=== PATIENT | male | born 1955 | race Caucasian/White ===

== ENCOUNTER → 2016-12-03 | Outpatient (CLI) | payer BC ==
[2016-12-03 13:37] LABS: BASO % 0.3 %; BASO ABS # 0.02 K/uL (0-0.2); COMPLETE YES; EOS % 1.3 %; HEMATOCRIT 46.6 % (42-52); IG% 0.2 %; LYMPH % 27.3 %; LYMPH ABS # 1.73 K/uL (1.2-3.4); MEAN CELL VOLUME 96.9 fL (80-100); MEAN CORPUSCULAR HEMOGLOBIN 33.5 pg (25-34); MEAN CORPUSCULAR HGB CONC 34.5 g/dl (32-36); MEAN PLATELET VOLUME 9.1 fL (7.4-10.4); MONO % 10.6 %; NEUT % 60.3 %; PLATELET COUNT 246 K/uL (130-400); RED BLOOD COUNT 4.81 M/uL (4.7-6.1); WHITE BLOOD COUNT 6.33 K/uL (4.8-10.8)
[2016-12-03 14:18] LABS: ALT/SGPT 37 U/L (12-78); AST/SGOT 30 U/L (15-37); BLOOD UREA NITROGEN 14 mg/dl (7-18); BUN/CREATININE RATIO 16.7 (10-20); CARBON DIOXIDE 27 mmol/L (21-32); CHLORIDE 103 mmol/L (98-107); CHOLESTEROL 201 mg/dl (0-200); CREATININE 0.82 mg/dl (0.60-1.40); GLUCOSE 99 mg/dl (70-99); POTASSIUM 4.1 mmol/L (3.5-5.1); SODIUM 136 mmol/L (136-145)
[2016-12-03 14:29] LABS: ALB/GLOB RATIO 1.1 (0.9-2); ALKALINE PHOSPHATASE 62 U/L (45-117); CHOLESTEROL/HDL RATIO 1.9; HDL CHOLESTEROL 104 mg/dl; TRIGLYCERIDES 81 mg/dl (0-150); VERY LOW DENSITY LIPOPROT CALC 16 mg/dl
[2016-12-04 07:53] LABS: ESTIMATED AVERAGE GLUCOSE 114 mg/dl; HA1C FLAG Normal (Normal)
== END | disposition home or self-care (01) ==
LOC: C.LABSPEC 12:15
PROVIDERS: ATTEND Internal Medicine
DX: I10 Essential (primary) hypertension (principal); E78.5 Hyperlipidemia, unspecified; R73.9 Hyperglycemia, unspecified; R63.4 Abnormal weight loss

== ENCOUNTER → 2017-12-02 | Outpatient (CLI) | payer BC ==
[~2017-12-02] MED LIST: GABA-1693 PO; LISI-461 PO; MULT-845 PO; NYSS5 PO; THIA100T10 PO
== END | disposition home or self-care (01) ==
LOC: C.LABSPEC 12:52
PROVIDERS: ATTEND Internal Medicine
DX: R20.0 Anesthesia of skin (principal)

== ENCOUNTER 2023-07-16 18:35 | Inpatient (IN) ==
--- NOTE | 2023-07-16 19:12 | Emergency Department Note ---
History of Present Illness General Chief complaint: Fall Time Seen by Provider: 07/16/23 18:54 History of Present Illness Maximum Pain Intensity: 0 This is a 68-year-old male that presents to the emergency department via EMS with complaints of "fall". Patient also here today with his daughter and son-in-law. Patient as well as family provides the history. Patient notes that he drank a bottle of wine tonight and went to go to sleep. He then fell out of bed striking his head he believes on the nightstand. EMS summoned and brought here for further evaluation and management. Patient does note some discomfort to the skin where there are tears noted from the fall. Patient also notes there are several scabbed areas to his body that he has been picking at that has worsened over the past 2 weeks. Additional history obtained once the patient was more sober. He notes that over the past 3 days he has had increased balance issue and has been leading to the left. He also notes that he has been falling more as of recent. Patient notes that although he has history of falls this has seemed to worsen over the past 3 days. He denies any headache or neck pain. No chest pain or abdominal pain. No back pain. Tetanus vaccine up-to-date per review of the EMR last administered in 2018. Home Medications Medication Instructions Recorded Confirmed Type atorvastatin 40 mg tablet 40 mg PO QAM 07/16/23 07/16/23 History clobetasol 0.05 % scalp solution 1 applic topical DAILY PRN .. 07/16/23 07/17/23 History loratadine 10 mg tablet 10 mg PO DAILY 07/16/23 07/17/23 History mupirocin 2 % topical ointment 1 applic topical .2-3XS DAY PRN 07/16/23 07/16/23 History flare up naltrexone 50 mg tablet 50 mg PO QAM 07/16/23 07/16/23 History thiamine HCl (vitamin B1) 100 mg 100 mg PO DAILY 07/16/23 07/16/23 History tablet albuterol sulfate 90 mcg/actuation 2 puff inhalation Q4 PRN Shortness 07/17/23 07/17/23 History aerosol inhaler Of Breath Or Wheezing lisinopril 10 mg tablet 10 mg PO DAILY 07/17/23 07/17/23 History multivitamin 1 tab PO DAILY 07/17/23 07/17/23 History sertraline 25 mg tablet 25 mg PO QAM 07/17/23 07/17/23 History Allergies Allergy/AdvReac Type Severity Reaction Status Date / Time No Known Allergies Allergy Unverified 07/16/23 23:53 Past Med/Surg History Medical History Gait instability Idiopathic polyneuropathy Ataxia Hypertension Left leg weakness Numbness Surgical History No pertinent past surgical history Family History Family/Other No problems noted. Mother No problems noted. Father Stroke Social History Smoking Status: Former smoker Hx Alcohol Use: Yes Alcohol Intake Frequency: 4 or More x per/Week Preferred Language: Malian Feels Safe at Home: Yes Review of Systems A total of 10 systems reviewed and were otherwise negative Physical Exam Vital Signs Vital Signs - 24 hr 07/16/23 18:50 07/16/23 20:18 07/16/23 20:44 Temperature 36.5 C Temperature Source Oral Pulse Rate 68 64 Pulse Rate [Apical] 64 Respiratory Rate 18 18 Respiratory Effort / Characteristics Non-Labored Spontaneous Respiratory Depth Normal Respiratory Pattern Regular Blood Pressure 112/80 Blood Pressure [Right Arm] 124/81 Blood Pressure Mean 90 Blood Pressure Mean [Right Arm] 95 Blood Pressure Position Sitting Blood Pressure Position [Right Arm] Lying Pulse Oximetry 96 98 Oxygen Delivery Method Room Air Room Air Sepsis Recent Fever Within 48 Hours No Sepsis New/Unexplained Change in Mental Status No Sepsis Action Taken by Nursing No Action Required 07/16/23 21:34 07/16/23 21:34 07/16/23 22:09 Temperature Temperature Source Pulse Rate 76 Pulse Rate [Apical] 66 67 Respiratory Rate 18 18 18 Respiratory Effort / Characteristics Non-Labored Spontaneous Non-Labored Spontaneous Respiratory Depth Normal Normal Respiratory Pattern Regular Regular Blood Pressure Blood Pressure [Right Arm] 105/72 106/68 Blood Pressure Mean Blood Pressure Mean [Right Arm] 83 80 Blood Pressure Position Blood Pressure Position [Right Arm] Lying Lying Pulse Oximetry 96 96 96 Oxygen Delivery Method Room Air Room Air Room Air Sepsis Recent Fever Within 48 Hours Sepsis New/Unexplained Change in Mental Status Sepsis Action Taken by Nursing VITAL SIGNS - Vital signs and nursing notes were reviewed. Stable and afebrile. GENERAL -68-year-old male appearing his stated age who is in no acute distress. Communicates well with provider and answers questions appropriately. SKIN -there are several scabbed areas of various sizes and stages of healing throughout much of the body. Much of this is on the forehead, neck and face area but also in the extremities. There are acute superficial wounds are present to the left superior eyebrow region, left inferior ear/face region, left lateral neck area as well as the bilateral upper extremities. These will not require repair. No suturable wounds noted. Minimal bleeding noted at this time. HEAD -normocephalic. EYES - PERRL with EOMI bilaterally. Sclera anicteric. EARS - No deformities of external structures noted on gross examination bilaterally. No hemotympanum. NOSE - Midline and without cyanosis. No epistaxis or purulent drainage noted. MOUTH/OROPHARYNX - Without perioral cyanosis. NECK - Neck with FROM. Supple to palpation. No nuchal rigidity. LUNGS - CTA CARDIAC - RRR ABDOMEN -bowel sounds normoactive. Soft and nontender. EXTREMITIES - No clubbing or peripheral cyanosis. Skin tears of the extremities noted, one overlying the left medial hand, left lateral elbow, and right forearm region. Scabbed areas as above which appear chronic and not new today. No bony tenderness. Full range of motion noted. No deficits. NEUROLOGIC - Cranial nerves II through XII grossly intact. Sensory intact to light touch throughout. No deficits on examination. PSYCH - A&Ox3 and cooperates fully with examiner. Pt is very pleasant and interacts well with examiner. Course Administered Medications Multivitamins 10 ml/ Thiamine HCl 100 mg/ Folic Acid 1 mg/Sodium Chloride 1,011.2 mls @ 500 mls/hr IV .Q2H2M ONE Stop: 07/17/23 00:29 Last Admin: 07/16/23 22:51 Dose: 500 mls/hr Documented By: [facility] Medical Decision Making Laboratory Data 07/16/23 20:40 07/16/23 20:40 Lab Results 07/16/23 Range/Units 20:40 WBC 6.80 (4.8-10.8) K/ul RBC 4.43 L (4.70-6.10) M/uL Hgb 14.9 (14.0-18.0) g/dl Hct 43.5 (42.0-52.0) % MCV 98.2 (80.0-100.0) fL MCH 33.6 (25.0-34.0) pg MCHC 34.3 (32.0-36.0) g/dL RDW Std Deviation 43.8 (36.4-46.3) fL RDW Coeff of Miguel 12.0 (11.5-14.5) % Plt Count 292 (130-400) K/uL MPV 8.5 L (9.4-12.4) fL Immature Gran % (Auto) 0.6 % Neut % (Auto) 71.6 % Lymph % (Auto) 15.6 % Broome % (Auto) 6.3 % Eos % (Auto) 5.0 % Baso % (Auto) 0.9 % Neut # (Auto) 4.87 (1.40-6.50) K/uL Lymph # (Auto) 1.06 L (1.20-3.40) K/uL Broome # (Auto) 0.43 (0.11-0.59) K/uL Eos # (Auto) 0.34 (0.00-0.50) K/uL Baso # (Auto) 0.06 (0.00-0.20) K/uL Immature Gran # (Auto) 0.04 (0.01-0.20) K/uL PT 9.7 (9.0-12.0) Seconds INR 0.9 (0.9-1.1) APTT 27 (21-31) Seconds PTT Ratio 1.0 Sodium 132 L (136-145) mmol/L Potassium 4.0 (3.5-5.1) mmol/L Chloride 98 (98-107) mmol/L Carbon Dioxide 25 (21-32) mmol/L Anion Gap 9 (3-11) BUN 8 (6-23) mg/dl Creatinine 0.50 L (0.6-1.4) mg/dl Est Cr Clr Drug Dosing Not Reportable Est GFR ( Amer) 130.0 ml/min Est GFR (Non-Af Amer) 112.1 ml/min BUN/Creatinine Ratio 16.0 (10-20) Glucose 100 H (70-99(Fasting)) mg/dl Calcium 8.7 (8.6-10.3) mg/dl Phosphorus 3.4 (2.5-4.9) mg/dl Magnesium 1.8 (1.7-2.4) mg/dl Total Bilirubin 0.6 (0.2-1.0) mg/dl AST 25 (13-39) U/L ALT 12 (7-52) U/L Alkaline Phosphatase 83 (34-104) U/L Total Protein 7.4 (6.0-8.3) gm/dl Albumin 4.1 (3.4-5.0) gm/dl Globulin 3.3 (2.5-4.0) gm/dl Albumin/Globulin Ratio 1.2 (0.9-2) Ethyl Alcohol mg/dL 177.5 H (<10.0) mg/dl Imaging Data My Impression: Chest xray: Per my interpretation the: Patient is rotated. No acute process. Radiologist's Impression: Cervical Spine CT 07/16/23 19:10 Exam(s): CT C SPINE EXAM: CT Cervical Spine Without Intravenous Contrast CLINICAL HISTORY: Reason for exam: fall, struck head/neck. TECHNIQUE: Axial computed tomography images of the cervical spine without intravenous contrast. CTDI is 24.17 mGy and DLP is 547.09 mGy-cm. Automated exposure control was utilized for the study. A dose lowering technique was utilized adhering to the principles of ALARA. COMPARISON: No relevant prior studies available. FINDINGS: The vertebral body heights are maintained. The craniocervical junction is intact. The atlanto-dens interval is maintained. The dens is intact. There is no spondylolisthesis. Multilevel cervical spondylosis and degenerative disc disease. Straightening of the cervical lordosis. The unenhanced neck soft tissues are grossly unremarkable. The visualized lung apices are grossly clear. IMPRESSION: No acute fracture or subluxation of the cervical spine. Electronically signed by: Bernard Nice MD 07/16/23 20:[address] 07/16/23 19:10 Exam(s): CT HEAD Without Contrast EXAM: CT Head Without Intravenous Contrast CLINICAL HISTORY: Reason for exam: fall, struck head/neck. TECHNIQUE: Axial computed tomography images of the head/brain without intravenous contrast. CTDI is 37.01 mGy and DLP is 624.41 mGy-cm. Automated exposure control was utilized for the study. A dose lowering technique was utilized adhering to the principles of ALARA. COMPARISON: Head CT May 05, 2022. FINDINGS: No acute intracranial hemorrhage. No midline shift. Low attenuation in the LEFT cerebellum, concerning for old infarct. This area measures approximately 4.4 x 2.6 cm each. If there is no history of old infarct, recommend MRI to reevaluate and exclude a possible mass. Age-related cerebral volume loss. Periventricular and subcortical white matter hypoattenuation, consistent with chronic microangiopathy. The visualized orbits appear grossly unremarkable. The calvarium is intact. The visualized paranasal sinuses and mastoid air cells are grossly clear. IMPRESSION: Low attenuation in the LEFT cerebellum, concerning for old infarct. This area measures approximately 4.4 x 2.6 cm each. If there is no history of old infarct, recommend MRI to reevaluate and exclude a possible mass. No acute intracranial hemorrhage. Electronically signed by: Bernard Nice MD 07/16/23 20:24 PM MDM Narrative Patient was seen and evaluated as above in room D09. Review was performed of triage nursing notes and vital signs. I did review pertinent previous visits and patient history. After obtaining a thorough history and physical examination the above work up was performed. Patient presents to us today status post fall from bed. He is intoxicated on examination and does report drinking a bottle of wine today. His daughter is at bedside as well as son-in-law. He does have skin tears. It appears he struck the left side of the head when he fell. Options of care were discussed with the patient. IV access was established. Labs were drawn. There is no leukocytosis or concerning anemia. Mild hyponatremia 132. Glucose 100. Alcohol 177. Will note that the alcohol level was drawn nearly 2 hours after presentation therefore presenting alcohol level was likely higher. Furthermore CT imaging was obtained of the head and neck on presentation as well. CT scan of the neck was negative for acute fracture or subluxation. However, the CT scan of the head does reveal a "low-attenuation in the left cerebellum, concerning for old infarct. This area measures approximately 4.4 x 2.6 cm each. If there is no history of old infarct, recommend MRI to reevaluate and exclude a possible mass". This reportedly was compared to the head CT from May 05, 2022. Patient was reevaluated and as he was becoming clinically sober further history was able to be obtained. I asked him if he had any dizziness over the past few days or balance issues. He noted over the past 3 days worsening dizziness and worsening balance issues and feels like he is falling to the left. He does not have any acute deficit on my examination. I do believe that further evaluation and management is warranted in the inpatient setting. Case discussed with the hospitalist service. Please refer to further documentation regarding his stay. Patient amenable to this plan. Chest x-ray was also obtained per my interpretation was negative for acute process and the patient is rotated. Formal radiology report will be available in the a.m. He has no respiratory complaints at this time. EKG reveals normal sinus rhythm at a rate of 61 bpm. QTc 442. QRS 76. There is no ST elevation. Consent was obtained and I did cleanse the patient's skin tears with sterile saline and dilute iodine. These were dried with sterile gauze. Bacitracin dressings were applied. I did order the patient multivitamin/thiamine/folic acid with fluids. He does appear clinically dehydrated. The patient's daughter did leave her cell phone number and asked us to contact her regarding today's findings and plan of care. I did obtain consent from the patient and he asked that I also in addition to speaking with his daughter also speak with his at home. I was able to speak to his daughter as well as his Haile via phone. All questions were answered and they were updated on plan of care. GCS: 15 In the evaluation and treatment of this patient the following differential diagnoses were entertained: Acute intracranial hemorrhage, skull fracture, intoxication, electrolyte disturbance, mass, stroke, among others. Impression & Plan Abnormal CT of the head, Balance problem, Multiple skin tears, Frequent falls, Alcohol use, Hyponatremia Discharge Plan Visit Data Chief Complaint: Fall ED Provider: Marquita Ag ED Midlevel Provider: Armond [place] Discharge Problem: Abnormal CT of the head, Balance problem, Multiple skin tears, Frequent falls, Alcohol use, Hyponatremia Patient Disposition: Admitted As Inpatient Condition: Good
--- NOTE | 2023-07-16 20:25 | CT Scan Report ---
Exam(s): CT HEAD Without Contrast EXAM: CT Head Without Intravenous Contrast CLINICAL HISTORY: Reason for exam: fall, struck head/neck. TECHNIQUE: Axial computed tomography images of the head/brain without intravenous contrast. CTDI is 37.01 mGy and DLP is 624.41 mGy-cm. Automated exposure control was utilized for the study. A dose lowering technique was utilized adhering to the principles of ALARA. COMPARISON: Head CT May 05, 2022. FINDINGS: No acute intracranial hemorrhage. No midline shift. Low attenuation in the LEFT cerebellum, concerning for old infarct. This area measures approximately 4.4 x 2.6 cm each. If there is no history of old infarct, recommend MRI to reevaluate and exclude a possible mass. Age-related cerebral volume loss. Periventricular and subcortical white matter hypoattenuation, consistent with chronic microangiopathy. The visualized orbits appear grossly unremarkable. The calvarium is intact. The visualized paranasal sinuses and mastoid air cells are grossly clear. IMPRESSION: Low attenuation in the LEFT cerebellum, concerning for old infarct. This area measures approximately 4.4 x 2.6 cm each. If there is no history of old infarct, recommend MRI to reevaluate and exclude a possible mass. No acute intracranial hemorrhage. Electronically signed by: Bernard Nice MD 07/16/23 20:24 PM
--- NOTE | 2023-07-16 20:26 | CT Scan Report ---
Exam(s): CT C SPINE EXAM: CT Cervical Spine Without Intravenous Contrast CLINICAL HISTORY: Reason for exam: fall, struck head/neck. TECHNIQUE: Axial computed tomography images of the cervical spine without intravenous contrast. CTDI is 24.17 mGy and DLP is 547.09 mGy-cm. Automated exposure control was utilized for the study. A dose lowering technique was utilized adhering to the principles of ALARA. COMPARISON: No relevant prior studies available. FINDINGS: The vertebral body heights are maintained. The craniocervical junction is intact. The atlanto-dens interval is maintained. The dens is intact. There is no spondylolisthesis. Multilevel cervical spondylosis and degenerative disc disease. Straightening of the cervical lordosis. The unenhanced neck soft tissues are grossly unremarkable. The visualized lung apices are grossly clear. IMPRESSION: No acute fracture or subluxation of the cervical spine. Electronically signed by: Bernard Nice MD 07/16/23 20:25 PM
[2023-07-16 21:27] LABS: Basophils # (auto) 0.06 K/uL (0.00-0.20); Basophils % (auto) 0.9 %; Eosinophils # (auto) 0.34 K/uL (0.00-0.50); Hematocrit (blood only) 43.5 % (42.0-52.0); Hemoglobin 14.9 g/dl (14.0-18.0); Immature Granulocytes # (auto) 0.04 K/uL (0.01-0.20); Immature Granulocytes % (auto) 0.6 %; Lymphocytes # (auto) 1.06 K/uL (1.20-3.40); Lymphocytes % (auto) 15.6 %; Mean Corpuscular Hemoglobin 33.6 pg (25.0-34.0); Mean Corpuscular Hgb Conc 34.3 g/dL (32.0-36.0); Mean Corpuscular Volume 98.2 fL (80.0-100.0); Mean Platelet Volume 8.5 fL (9.4-12.4); Monocytes # (auto) 0.43 K/uL (0.11-0.59); Monocytes % (auto) 6.3 %; Neutrophils # (auto) 4.87 K/uL (1.40-6.50); Neutrophils % (auto) 71.6 %; Platelet Count 292 K/uL (130-400); RDW Standard Deviation 43.8 fL (36.4-46.3); Red Blood Count 4.43 M/uL (4.70-6.10)
[2023-07-16 21:28] LABS: Alanine Aminotransferase 12 U/L (7-52); Albumin Globulin Ratio 1.2 (0.9-2); Albumin Level 4.1 gm/dl (3.4-5.0); Alkaline Phosphatase 83 U/L (34-104); Anion Gap 9 (3-11); Aspartate Aminotransferase 25 U/L (13-39); Bilirubin,Total 0.6 mg/dl (0.2-1.0); Blood Urea Nitrogen 8 mg/dl (6-23); Calcium 8.7 mg/dl (8.6-10.3); Carbon Dioxide 25 mmol/L (21-32); Chloride 98 mmol/L (98-107); Est GFR (Non-African American) 112.1 ml/min; Globulin 3.3 gm/dl (2.5-4.0); Glucose 100 mg/dl (70-99(Fasting)); Sodium 132 mmol/L (136-145); Total Protein 7.4 gm/dl (6.0-8.3)
[2023-07-16 21:41] LABS: INR 0.9 (0.9-1.1); Partial Thromboplastin Time 27 Seconds (21-31); Prothrombin Time 9.7 Seconds (9.0-12.0)
[2023-07-16 22:50] LABS: Magnesium 1.8 mg/dl (1.7-2.4); Phosphorus 3.4 mg/dl (2.5-4.9)
[2023-07-16] MEDS: MULTI-VITAMIN INFUSION 10 ML, THIAMINE HCL 100 MG, FOLIC ACID 1 MG in SODIUM CHLORIDE 0... IV ONE (22:51)
--- NOTE | 2023-07-16 23:28 | History & Physical Report ---
Date of Service July 16, 2023 Assessment & Plan (1) Idiopathic polyneuropathy: (2) Alcohol use disorder: (3) Ataxia: (4) Hypertension: (5) Gait instability: Plan 68-year-old patient with past medical history of idiopathic polyneuropathy in left lower extremity, hypertension, and alcohol abuse disorder that was admitted to the hospital after experiencing a fall without loss of consciousness resulting from dizziness upon standing from his bed. Alcohol use disorder -Patient with long history of excessive alcohol consumption which he states is not excessive, but after discussion with patient's , comes to like the patient has been consuming alcoholic beverages since he wakes up until he goes to sleep (patient is "never sober ") -Patient experiencing mood symptoms at home, as per his (depressed, quiet) -No known history of any alcohol withdrawal symptoms, but patient has been experiencing excessive "pruritus "for which she has been scratching to the point of producing skin lesions -Alcohol withdrawal protocol ordered -Thiamine 200 mg daily and folate daily ordered -Folate and B12 levels ordered -IVF with LR at 100 cc/hr -Patient admitted to PCU/telemetry Gait imbalance // Fall -Patient with long history of gait imbalance likely related to left lower extremity neuropathy for which he uses a walker for ambulation at baseline -Patient concerned with making turns due to fear of falling but able to walk in a straight line without difficulty -Patient with known history of alcohol use disorder that also impairs his gait due to ataxia and increases his risk for falls -Patient not experiencing any pain at the time of evaluation -C-spine CT and head CT without any fractures -Head CT did show low-attenuation in the left cerebellum concerning for an old infarct. Patient does not recall being managed for any strokes in the past. Consider further evaluation with an MRI to r/o possible mass or any other acute process -PT and OT consulted Hypertension -Continue home lisinopril 10 mg daily -Consider holding if patient's blood pressures soft Dispo: PCU/telemetry Fluids: LR @ 100 cc/hr Diet: HH VTE ppx: SCDs a.m. labs: CBC, CMP, magnesium History of Present Illness Chief Complaint: Fall Primary Care Provider: Magan Garcia MD Patient is a 68-year-old male with past medical history remarkable for alcohol abuse disorder, gait imbalance with use of walker at baseline, idiopathic polyneuropathy, and hypertension who arrived to the emergency department due to a fall. Patient was lying in his bed and when attempting to get out of bed patient felt dizzy and fell and hit his head on the bedside table, but denies any loss of consciousness. Patient's then called an ambulance to take patient to the hospital. Patient has gait imbalance at baseline he uses a walker to ambulate around his home, but notes worsening imbalance in the last 3 days. Of note patient was last seen in the hospital in 2018 due to concerns of left distal leg weakness associated with numbness of the left foot. At the time head and spine MRI were performed to see if there was any compression or any other cause for his left lower extremity numbness/weakness, but ultimately these did not show any findings that would be consistent with this clinical manifestation.patient was then seen by orthopedics at this time and they felt that his left leg symptoms were likely related to transient peripheral neuropath y (peroneal nerve injury) and at the time of discharge his left leg symptoms were essentially resolved. Patient was discharged with gabapentin 3 times a day and advised to have close follow-up with his PCP. Today patient refers that he is still having left leg weakness/numbness which causes his gait and balance. He states that he is able to walk without difficulty when walking forward and using his walker, but feels concerns when he has to turn around due to fear of falling. He denies increased consumption of alcoholic beverages in these last 3 days and states that he has consumed about the same amount that he has in the past. However, after calling patient's (Haile), he states that the patient has been consuming alcoholic beverages since he wakes up in the morning until he goes to sleep at night. He also states that the patient has seemed more depressed and quiet than usual, and makes note that the patient is " never sober". On evaluation at bedside, patient was noted to have multiple scabs on his face, his back, and his upper extremities. No scabbing lesions noted in patient's abdomen or bilateral lower extremities. On questioning, patient states that he got the scabs from excessive scratching because of persistent pruritus in those areas that are not limited to any particular time of day. His has not had similar symptoms of pruritus/excessive scratching. Patient cannot recall any recent changes that could have caused his excessive scratching. Patient is awake alert and oriented in all spheres, afebrile, and in no acute distress. He denies having any chest pain, shortness of breath, fevers, chills, nausea, vomiting, diarrhea, headaches, malaise, or any other symptoms. ED Course: Patient was treated with banana bag, scabs and wounds were cleaned and dressed Labs/Imaging: CBC without leukocytosis, hemoglobin stable at 14.9, platelets stable at 292, coagulation studies with INR of 0.9, CMP showing hyponatremia with sodium level of 132, no other electrolyte abnormalities, renal markers within reference range, glucose of 100, magnesium level of 1.8, phosphorus of 3.4, LFTs normal C-spine CT without acute fractures or subluxation, head CT without any intracranial hemorrhage but showing low-attenuation of the left cerebellum that are concerning for an old infarct (area measures approximately 4.4 x 2.6 cm). Patient states that he has no history of any strokes. Allergies Allergy/AdvReac Type Severity Reaction Status Date / Time No Known Allergies Allergy Unverified 07/16/23 23:53 Home Medications Medication Instructions Recorded Confirmed Type atorvastatin 40 mg tablet 40 mg PO QAM 07/16/23 07/16/23 History clobetasol 0.05 % scalp solution 1 applic topical DAILY PRN .. 07/16/23 07/17/23 History loratadine 10 mg tablet 10 mg PO DAILY 07/16/23 07/17/23 History mupirocin 2 % topical ointment 1 applic topical .2-3XS DAY PRN 07/16/23 07/16/23 History flare up naltrexone 50 mg tablet 50 mg PO QAM 07/16/23 07/16/23 History thiamine HCl (vitamin B1) 100 mg 100 mg PO DAILY 07/16/23 07/16/23 History tablet albuterol sulfate 90 mcg/actuation 2 puff inhalation Q4 PRN Shortness 07/17/23 07/17/23 History aerosol inhaler Of Breath Or Wheezing lisinopril 10 mg tablet 10 mg PO DAILY 07/17/23 07/17/23 History multivitamin 1 tab PO DAILY 07/17/23 07/17/23 History sertraline 25 mg tablet 25 mg PO QAM 07/17/23 07/17/23 History Past Med/Surg History Medical History Gait instability Idiopathic polyneuropathy Ataxia Hypertension Left leg weakness Numbness Surgical History No pertinent past surgical history Family History Family/Other No problems noted. Mother No problems noted. Father Stroke Social History Smoking Status: Current every day smoker Tobacco Type: Cigarettes Hx Alcohol Use: Yes Alcohol type: wine Alcohol Intake Frequency: 4 or More x per/Week Hx Substance Use: No Preferred Language: Cameroonian Communication Ability: Effective Pharmacy Informaticist Required: No Beliefs That Will Affect Care: None Current Living Situation: Spouse Feels Safe at Home: Yes Assistive Devices: Cane and Walker Review of Systems Review of Systems: As per HPI Physical Exam Physical Exam: GENERAL: Alert awake and oriented in all spheres, afebrile, no acute distress HEAD: Normocephalic, lesions noted more pronounced on patient's left side of the face some of which are scabbed over and 1 this seems to be recent and likely related to recent fall and patient's left brow region, lesions without active bleeding EYES: EOM intact, PERRL THROAT: Normal to visual exam CHEST: Symmetric chest expansions with respirations CARDIO: Regular rate and rhythm, no rubs murmurs or gallops PULMONARY: Clear to auscultation bilaterally, normal respiratory effort, no respiratory distress GI: Soft, nondistended, nontender : No Parker EXTREMITIES: No lower extremity swelling or calf tenderness bilaterally SKIN: Scabbed skin lesions noted in patient's face, back, and bilateral arms, no skin lesions or hematomas noted patient's abdomen and bilateral lower extremities NEURO: No aphasia, symmetrical operations supervisor strength, symmetrical eyebrow rise, symmetrical smile, able to lift both lower extremities Results & Data Results & Data Vital Signs (Past 12 Hours) Vital Signs Temp Pulse Pulse Resp BP BP Pulse Ox 07/16/23 22:09 67 18 106/68 96 07/16/23 21:34 76 18 96 07/16/23 21:34 66 18 105/72 96 07/16/23 20:44 64 18 124/81 98 07/16/23 20:18 64 07/16/23 18:50 36.5 C 68 18 112/80 96 O2 Del Method 07/16/23 22:09 Room Air 07/16/23 21:34 Room Air 07/16/23 21:34 Room Air 07/16/23 20:44 Room Air 07/16/23 20:18 07/16/23 18:50 Room Air Supervising Physician Co-Signing Physician Notes Attending addendum: I have physically seen this patient, have supervised the medical residents activities, and agree with the H&P unless as otherwise noted. Assessment and Plan: Alcohol use disorder/alcohol intoxication- Per patient's , he has been intaking alcohol significantly more as of late Presenting symptoms may be associated with his alcohol abuse AWSS protocol with IV Ativan LR at 100 mL/h after finishing banana bag Checking folate and B12 levels Thiamine 200 mg daily and folate 1 mg daily Admit to PCU for rhythm monitoring Ambulatory dysfunction/gait and balance/fall- History of idiopathic polyneuropathy/ataxia and gait instability Alcohol abstinence is important Imaging of CT of head and CT C-spine are both negative MRI brain without contrast Consult PT/OT May need inpatient rehab Hypertension- Lisinopril with hold parameters Remaining orders and notations as noted
[2023-07-16] MEDS ORDERED: LORazepam 1 MG in SYRINGE 0.5 ML IV PRN (23:47)
[2023-07-17] MEDS ORDERED: ACETAMINOPHEN 325 MG TAB PO PRN (00:33)
[2023-07-17 01:20] LABS: Folate (Folic Acid),Ser orPlas > 22.30 ng/ml (>5.38)
[2023-07-17 01:21] LABS: Vitamin B12 309 pg/ml (180-914)
[2023-07-17] MEDS: LACTATED RINGER'S 1,000 ML IV SCH (02:16)
[2023-07-17 04:06] LABS: Basophils # (auto) 0.09 K/uL (0.00-0.20); Basophils % (auto) 1.6 %; Eosinophils # (auto) 0.55 K/uL (0.00-0.50); Eosinophils % (auto) 9.5 %; Hematocrit (blood only) 38.4 % (42.0-52.0); Hemoglobin 13.1 g/dl (14.0-18.0); Immature Granulocytes # (auto) 0.03 K/uL (0.01-0.20); Immature Granulocytes % (auto) 0.5 %; Lymphocytes # (auto) 1.02 K/uL (1.20-3.40); Lymphocytes % (auto) 17.7 %; Mean Corpuscular Hemoglobin 33.1 pg (25.0-34.0); Mean Corpuscular Hgb Conc 34.1 g/dL (32.0-36.0); Mean Platelet Volume 8.4 fL (9.4-12.4); Monocytes % (auto) 10.4 %; Neutrophils # (auto) 3.47 K/uL (1.40-6.50); Neutrophils % (auto) 60.3 %; Platelet Count 263 K/uL (130-400); RDW Coefficient of Variation 11.9 % (11.5-14.5); Red Blood Count 3.96 M/uL (4.70-6.10); White Blood Count 5.76 K/ul (4.8-10.8)
[2023-07-17 04:14] LABS: Alanine Aminotransferase 8 U/L (7-52); Albumin Globulin Ratio 1.4 (0.9-2); Albumin Level 3.5 gm/dl (3.4-5.0); Alkaline Phosphatase 68 U/L (34-104); Anion Gap 8 (3-11); Aspartate Aminotransferase 20 U/L (13-39); BUN Creatinine Ratio 19.6 (10-20); Bilirubin,Total 0.5 mg/dl (0.2-1.0); Blood Urea Nitrogen 10 mg/dl (6-23); Calcium 8.2 mg/dl (8.6-10.3); Carbon Dioxide 22 mmol/L (21-32); Chloride 103 mmol/L (98-107); Est GFR (African American) 128.9 ml/min; Est GFR (Non-African American) 111.2 ml/min; Globulin 2.5 gm/dl (2.5-4.0); Glucose 97 mg/dl (70-99(Fasting)); Magnesium 1.7 mg/dl (1.7-2.4); Potassium 3.7 mmol/L (3.5-5.1); Sodium 133 mmol/L (136-145)
--- NOTE | 2023-07-17 07:06 | XRay Report ---
XR chest 1V portable CLINICAL HISTORY: fall from bed TECHNIQUE: Single frontal radiograph of the chest was obtained. Comparison: Comparison is made to chest radiograph 05/05/2022 FINDINGS: No lines and tubes are seen. Cardiac silhouette is unremarkable, there is prominence of the right med iastinum which may represent pulmonary vasculature, less likely underlying mass. Opacity in the media l right lung base with rightward mediastinal shift may represent right lower lobe are collapse. No ev idence of pleural effusion or pneumothorax. IMPRESSION: Likely right lower lobar collapse. CT chest is recommended to exclude obstructing mass. ACT 112: Positive. There are findings on this exam that require communication between the performing entity and the patient following Patient Test Result Information Act ([place] Act 112) guidelines. Electronically signed by: Wai Giang M.D. 07/17/2023 7:05 AM
--- NOTE | 2023-07-17 07:43 | Hospitalist Progress Note ---
Date of Service July 17, 2023 Assessment & Plan (1) Ataxia: Plan: 68 y/o presented with falls, unsteady gait, ataxia -Patient with long history of gait imbalance likely related to left lower extremity neuropathy for which he uses a walker for ambulation at baseline -C-spine CT and head CT without any fractures Abnormal head CT -reviewed head CT from 04/2022 - only "punctate lacunar infarct" noted in L cerebellum -admission head CT with likely interval/old L cerebellar infarct but will obtain brain MRI to evaluate for mass, especially given RLL abnormality on CXR -brain MRI confirms L cerebellar mass - primary brain lesion vs metastasis - cystic appearing lesion not typical for met -discuss with neurology/neurosurgery -see below re: chest CT (2) Alcohol use disorder: Plan: -Patient with long history of excessive alcohol consumption which he states is not excessive, but after discussion with patient's , comes to like the patient has been consuming alcoholic beverages since he wakes up until he goes to sleep (patient is "never sober ") -Patient experiencing mood symptoms at home, as per his (depressed, quiet) -No known history of any alcohol withdrawal symptoms, but patient has been experiencing excessive "pruritus "for which he has been scratching to the point of producing skin lesions -Alcohol withdrawal protocol ordered -Thiamine 200 mg daily and folate daily ordered -Folate and B12 levels ordered (3) Idiopathic polyneuropathy: Plan: LLE longstanding (4) Hypertension: Plan: Hypertension -Continue home lisinopril 10 mg daily -Consider holding if patient's blood pressures soft Plan R medial lung base opacity possible RLL collapse on CXR, R mediastinal prominence -chest CT ordered - RLL collapsed, suggestive of bronchial obstruction. Reviewed CT images. Also has SC LN on exam. -with finding of cerebellar brain mass, smoking history, weight loss the big picture is concerning for metastatic cancer -consulted pulmonary - discussed with Dr. Antonio, bronchoscopy planned for tomorrow B12 309 - started oral supplement Folate normal Thiamine po supplement Mild hyponatremia Na improved from 132 to 133 with IV fluids Cerebrovascular disease - reviewed previous imaging - had CTA head/neck 04/2022 noted to have 80% focal stenosis of distal L common carotid and 40% prox LICA -cardiac calcifications on CT -is on lisinopril and atorvastatin Severe protein calorie malnutrition. Anorexia and 20 pound weight loss this year. Cachectic appearing with significant extremity muscle wasting, sarcopenia -consult nutrition Diffuse ecchymoses - coags - reviewed, normal, platelets normal Admission and Anticipated Discharge Date Admission Date: July 16, 2023 Subjective no chest pain or dyspnea, continues smoking has been itchy and scratching "rash" on head/post neck few weeks lots of bruises he says from falls LLE neuropathy numbness he feels getting better over time Physical Exam 2 Physical Exam: PHYSICAL EXAMINATION Last 24h vital signs reviewed, see documentation in flowsheet General: comfortable appearing, no distress, chronically ill appearing HEENT: Normocephalic, atraumatic, pupils round and equal, sclerae anicteric, no conjunctival injection, moist mucus membranes Lungs: Normal respiratory effort. Clear to auscultation bilaterally except absent R base. No RRW Heart: Regular rate and rhythm, no murmurs. No JVD Abdomen: Soft, nontender, nondistended. Bowel sounds present. Extremities: Warm, dry, well-perfused. No extremity edema. Sarcopenia - MM wasting arms/legs and bitemporal wasting Skin: numerous scattered old ecchymoses and skin tears, peanut picker lesions all over head/neck arms with scabs Neuro: Alert and oriented x 4, face symmetric, moves 4 extremities well, not tremulus Psych: Normal affect and behavior Results & Data Results & Data Vital Signs (Past 12 Hours) Vital Signs Temp Pulse Pulse Resp BP Pulse Ox O2 Del Method 07/17/23 06:34 36.4 C L 66 18 128/67 94 Room Air 07/17/23 03:31 61 07/17/23 02:19 87 18 95/60 L 95 Room Air 07/16/23 22:09 67 18 106/68 96 Room Air 07/16/23 21:34 76 18 96 Room Air 07/16/23 21:34 66 18 105/72 96 Room Air 07/16/23 20:44 64 18 124/81 98 Room Air 07/16/23 20:18 64 Laboratory Results 07/17/23 03:41 07/17/23 03:41 PG Care Time/CCT Total # of Minutes Spent Total Time Spent with Patient: Total time spent is greater than 50% in coordination of care (as documented) at patient's floor/unit and/or counseling patient: Coding Level of Care Code 24232 SUB INP/OBS CARE 3/50MIN Diagnoses Ataxia R27.0 Alcohol use disorder F19.90 Idiopathic polyneuropathy G60.9 Hypertension I10
[2023-07-17] MEDS: GADOBUTROL 65ML VIAL IV ONE (09:00)
[2023-07-17] MEDS: OPTIRAY 320 100ml IV ONE (09:18)
--- NOTE | 2023-07-17 10:12 | Magnetic Resonance Report ---
MR brain wo/w con CLINICAL HISTORY: L cerebellar abnormality, ataxia TECHNIQUE: Multiplanar and multisequence MR images of the brain were obtained prior to and following administration of gadolinium contrast. Comparison: Comparison is made to CT head 07/16/2023, CT head 05/05/2022, MRI brain 11/29/2017 FINDINGS: No abnormal restricted diffusion is identified. The white matter is unremarkable. Ex vacuo ventriculo megaly and sulcal enlargement is noted compatible with diffuse volume loss. There is a left cerebella r mass measuring 34 x 28 x 26 mm with rim enhancement. It is T2 hyperintense and T1 hypointense and m ay contain a mural nodule in the superior anterior surface. There is mild mass effect with partial ef facement of the fourth ventricle. There is no evidence of acute intraparenchymal hemorrhage. No extra axial fluid collections are seen. The corpus callosum, pituitary gland, and cerebellar tonsils appea r grossly unremarkable. Flow voids of the major intracranial arterial vessels are identified. The imaged portions of the para nasal sinuses, mastoid air cells, and orbits are unremarkable. IMPRESSION: Enhancing multiloculated cystic type lesion with minimal surrounding vasogenic edema. 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 T his is similar to appearance on prior CT however is new from MRI of [address] head of 2021. ACT 112: Positive. There are findings on this exam that require communication between the performing entity and the patient following Patient Test Result Information Act ([place] Act 112) guidelines. Electronically signed by: Wai Giang M.D. 07/17/2023 10:11 AM
--- NOTE | 2023-07-17 11:20 | CT Scan Report ---
CHEST CT WITH CONTRAST CT DOSE: 468.48 mGy.cm HISTORY: Collapse of the right lower lobe RLL collapse, possible mass TECHNIQUE: Multiaxial CT images of the chest were performed following the IV administration of 94 cc of Optiray. A dose lowering technique was utilized adhering to the principles of ALARA. COMPARISON: Chest radiograph 07/16/2023, thoracic spine MRI 11/30/2017, CT chest 05/10/2012 FINDINGS: Unremarkable thyroid. Borderline enlarged subcarinal and right hilar lymph nodes measure up to 10 mm. Heart is normal in size without pericardial effusion. Extensive coronary artery calcificat ions. Atherosclerosis of the thoracic aorta. Ectasia of the ascending portion measures up to 3.9 cm. Patency of the imaged great vessels. No pulmonary emboli identified. Tracheobronchial secretions are noted. There is abrupt cut off/opacification of the right lower lobe bronchus with complete collapse of the right lower lobe demonstrating heterogeneous attenuation. Subc entimeter calcifications are noted adjacent to the right lower lobe bronchus. Moderate pulmonary emph ysema is biapical pleural-parenchymal scarring. Bronchial wall thickening with multifocal mucus plugg ing. Mild subpleural nodular densities of the right lung apex are similar prior likely represents sca rring. No acute upper abdominal abnormality. Contrast noted within the renal collecting systems. There is mi d to distal esophageal wall thickening suggestive of esophagitis with small hiatal hernia. L1 yolette cecy deformity with 5 mm retropulsion is new from 2018 and likely chronic. Degenerative changes of th e shoulders and spine. IMPRESSION: 1. There is abrupt cut off/opacification of the right lower lobe bronchus with complete collapse of t he right lower lobe demonstrating heterogeneous attenuation. Follow-up with pulmonology consultation and bronchoscopy is needed in order to exclude an obstructing endobronchial mass. 2. Borderline enlarged subcarinal and right hilar lymph nodes. 3. Emphysema with bronchitis and tracheobronchial secretions. 4. Biapical pleural parenchymal scarring redemonstrated. 5. Moderate L1 compression deformity with 5 mm retropulsion is new from 2018, likely chronic. ACT 112: Positive. There are findings on this exam that require communication between the performing entity and the patient following Patient Test Result Information Act ([place] Act 112) guidelines. Electronically signed by: Tommy Gallegos M.D. 07/17/2023 11:19 AM
[2023-07-17] MEDS: FOLIC ACID 1 MG TAB PO SCH (11:22)
[2023-07-17] MEDS: lisinopril 10 MG TAB PO SCH (11:22)
[2023-07-17] MEDS: THIAMINE HCL 100 MG TAB PO SCH (11:23)
--- OUTSIDE RECORDS SUMMARY | 2023-07-17 12:00 | External Medical Summary ---
Author Name Unknown Address Unknown Organization R1WR:[facility] [address] [place] [address] Laboratory Report Ordering Provider Test Date Status NIDARACHEL BERNAL 06/13/2023 16:36:00 Final Observation Date Value Abnormality Reference (Units ) Status Alcohol, Medical 06/13/2023 17:03 211 Above upper panic limits <10 (mg/dL) Final [id number] CALLED CRITICAL RE SULTS AT [id number]. THE RESULTS WERE READ BACK AND VERIFIED BY: NOE BLOOD. CREAM DUMPER depression: >100 mg/dL Performing Location [facility] [address] [place] [address]
--- OUTSIDE RECORDS SUMMARY | 2023-07-17 12:00 | External Medical Summary ---
Author Name Unknown Address Unknown Organization R1WR:[facility] [address] [place] [address] Laboratory Report Ordering Provider Test Date Status LUCAS PERALESARGELIA 06/14/2023 06:59:00 Final Observation Date Value Abnormality Reference (Units ) Status Magnesium 06/14/2023 07:37 1.8 1.6-2.6 (mg/d L) Final Performing Location [facility] [address] [place] [address]
--- OUTSIDE RECORDS SUMMARY | 2023-07-17 12:00 | External Medical Summary | Summary of Care ---
Author Name Unknown Organization [facility] Address [address] [place] [address] Phone [phone] Care Team Providers Care Air Marshal Name Role Phone Carlos Alberto Covington PA-C Primary Care Provider [phone] Encounter Details Date Type Department Care Team (Late st Contact Info) Description 06/16/2023 Population Health External Data Unspecified Department Allergies No known active allergiesdocumented as of this encounter (statuses as of 06/16/2023) Medications Medication Sig Dispensed Refills Start Date End Date Status Daily-Maciej Multivitamin Oral Tablet Take 1 Tablet by mouth in the morning. 0 08/01/2022 Active Albuterol Sulfate HFA 108 (90 Base) MCG/ACT Inhalation Aerosol Solution INHALE TWO PUFFS BY MOUTH EVERY 4 HOURS NEEDED FOR SHORTNESS OF BREATH OR WHEEZING 18 g 4 09/11/2022 09/11/2023 Active Lisinopril 10 MG Oral Tablet (Prinivil)Indicatio ns:HTN, goal below 130/80 Take 1 Tablet by mouth in the morning. 90 Tablet 1 11/20/2022 Active Ventolin HFA 108 (90 Base) MCG/ACT Inhalation Aerosol Solution Inhale 2 Puffs by mouth every 4 hours as needed for Shortness of Breath or Wheezing. 54 g 1 11/21/2022 Active Sertraline HCl 25 MG Oral Tablet (Zoloft)Indications :Current moderate episode of major depressive disorder without prior episode (HCC) Take 1 Tablet by mouth in the morning. 90 Tablet 3 04/01/2023 Active Clobetasol Propionate 0.05 % External SolutionIndications :Skin irritation APPLY TO AFFECTED AREA DAILY NEEDED FOR SCALP IRRITATION 50 mL 1 04/18/2023 Active Loratadine 10 MG Oral Tablet (Claritin)Indicatio ns:Rash and nonspecific skin eruption,Scalp irritation,Pruritus Take 1 Tablet by mouth in the morning. 30 Tablet 11 04/18/2023 Active Folic Acid 1 MG Oral TabletIndications:L ow folic acid Take 1 Tablet by mouth in the morning. 90 Tablet 3 04/24/2023 Active Mupirocin 2 % External Ointment (Bactroban) Apply to the face and scalp 2-3 times daily 30 g 2 04/29/2023 Active Atorvastatin Calcium 40 MG Oral Tablet (Lipitor)Indication s:CVA, old, ataxia Take 1 Tablet by mouth in the morning. 90 Tablet 3 05/16/2023 Active Aspirin 81 MG Oral Tablet Delayed ReleaseIndications: CVA, old, ataxia Take 1 Tablet by mouth in the morning. 100 Tablet 3 05/16/2023 Active Additional Information Patient not taking.Reported on 05/19/2023 Thiamine HCl 100 MG Oral Tablet (vitamin B-1) Take 1 Tablet by mouth in the morning. 0 05/16/2023 Active Naltrexone HCl 50 MG Oral Tablet (Revia) Take 1 Tablet by mouth in the morning. 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 HTN, goal below 130/80 11/03/2018 Lumbar radiculopathy 11/03/2018 Lumbar degenerative disc disease 11/03/2018 documented as of this encounter (statuses as of 06/16/2023) Resolved Problems Problem Noted Date Diagnosed Date Resolved Date Screening PSA (prostate specific antigen) 11/10/2018 11/10/2018 documented as of this encounter (statuses as of 06/16/2023) Immunizations Name Administration Dates Next Due COVID-19 mRNA, LNP-s, No Pre serve, 2-Dose Series (Right Skills) 02/26/2021,07/08/2020,06/17/2020 Pneumococcal Conjugate Vacci ne, 20-valent ([id number]) 09/11/2022 Seasonal Influenza, Trivalen t, Adjuvanted, 65+ yrs 02/26/2021 TDAP (age 10 and older)(Boostrix) 04/25/2018 documented as of this encounter Social History Tobacco Use Types Packs/Day Years Used Date Smoking Tobacco: Every Day Cigarettes 1 Smokeless Tobacco: Never Alcohol Use Standard Drinks/Week Comments Yes 6 (1 standard drink = 0.6 oz pur e alcohol) Wine everyday 2 bottles AUDIT-C Answer Date Recorded Frequency of Alcohol Consumption 4 or more times a week 11/03/2018 Average Number of Drinks 1 or 2 019 Frequency of Binge Drinking Never 10/11 PHQ-2 Answer Date Recorded PHQ Adult Total Score 19 03/05/2023 Hunger Vital Sign Answer Date Recorded Within the past 12 months, y ou worried that your food would run out before you got the money to buy more. Never true 06/13/19 24 Within the past 12 months, t he food you bought just didn't last and you didn't have money to get more. Never true 06/13/2023 Sex and Gender Information Value Date Recorded Sex Assigned at Not on file Gender Identity Not on file Sexual Orientation Not on file Job Start Date Occupation Industry Not on file Not on file Not on file documented as of this encounter Plan of Treatment Upcoming Encounters Date Type Department Care Team ([facility] Contact Info) Description 06/20/2023 8:00 AM EST Office Visit Family [address] [phone] Venita Davis MD [address] [place] [phone] 07/29/2023 11:20 AM EDT Office Visit Dermatology [address] [phone] Bennie Randall PA-C [address] [place] [phone] 09/30/2023 9:00 AM EDT Office Visit Pulmonary Medicine, [facility] [address] [place] [address] Derrick Hallman, DO [address] [place] [address] 10/17/2023 8:00 AM EDT Office Visit Orthopaedics Spine Surgery, [facility] [address] [place] [address] Michael Hermosillo MD [address] [place] [phone] Health Maintenance Due Date Last Done Comments Albumin/Creatinine Ratio 12/31/1973 Cologuard 12/31/2000 Fecal Occult Blood Test 12/31/2000 Sigmoidoscopy 12/31/2000 Zoster Vaccines (1 of 2) 12/31/2005 Colonoscopy 03/29/2019 03/29/2009 Colorectal Cancer Screening 03/29/2019 AAA Screening 12/31/2020 COVID-19 Vaccine ( season) 2023 02/26/2021, 07/08/2020, 06/17/2020 Influenza Vaccine (FLU shot) (#1) 2023 02/26/2021 Depression, Most Recent Score >= 10 (will fire each visit until score < 10) 03/06/2023 03/05/2023 GFR 04/18/2024 04/18/2023, 07/11, 02/13/2021, Additional history exists Lipid Panel 04/18/2028 04/18/2023, 10/0 09/2020, 08/15/2020, Additional history exists DTaP,Tdap,and Td Vaccines (2 - Td or Tdap) 04/25/2028 04/25/2018 Pneumococcal Vaccine: 65+ Years Completed 09/11/2022 GARDASIL-HPV IMMUNIZATION SERIES Aged Out No longer eligible based on patient's age to complete this topic Hepatitis B Aged Out No longer eligi ble based on patient's age to complete this topic MENINGOCOCCAL (MENACTRA/MENVEO) Aged Out No longer eligible based on patient's age to complete this topic documented as of this encounter Medical Devices Not on filedocumented as of this encounter Care Teams Air Marshal Relationship Specialty Start Date End Date Carlos Alberto Covington PA-C [address] [place] [address] [phone] PCP - General Physician Manager Video Games 11/19/22 documented as of this encounter
--- OUTSIDE RECORDS SUMMARY | 2023-07-17 12:00 | External Medical Summary ---
Author Name Unknown Address Unknown Organization R1WR:[facility] [address] [place] [address] Laboratory Report Ordering Provider Test Date Status RACHEL FANG 06/13/2023 16:36:00 Final Observation Date Value Abnormality Reference (Units ) Status Glucose 06/13/2023 17:03 88 70-99 (mg/dL) Final The reference interval for F asting glucose is 70 to 99. The reference interval for Random Glucose is 70 to 139. BUN 06/13/2023 17:03 6 Below low normal 9-23 ( mg/dL) Final Creatinine 06/13/2023 17:03 0.55 Below low normal 0.70- 1.30 (mg/dL) Final eGFR 06/13/2023 17:03 108 >59 (mL/min/1 .73m2) Final eGFR = 142 X [min(Scr/k,1)]* *a [max(Scr/k,1)-1.200x0.9938age X 1.012 [if female] Where Scr is serum creatinine; k is 0.7 for females and 0.9 males; a is -0.241 for females and -0.302 for males; min indicates the minimum of Scr/k or 1, max indicates the maximum of Scr/k or 1 Sodium 06/13/2023 17:03 135 Below low normal 136-14 5 (mmol/L) Final Potassium 06/13/2023 17:03 3.8 3.4-5.0 (mmol /L) Final Chloride 06/13/2023 17:03 101 98-112 (mmol/ L) Final CO2 06/13/2023 17:03 26 20-31 (mmol/L ) Final Anion Gap 06/13/2023 17:03 12 7-15 (mmol/L) Final Calcium 06/13/2023 17:03 9.3 8.3-10.6 (mg/ dL) Final Total Protein 06/13/2023 17:03 7.9 5.7-8.2 ( g/dL) Final Albumin 06/13/2023 17:03 3.9 3.4-5.0 (g/dL ) Final Bilirubin, Total 06/13/2023 17:03 0.6 0.0-0. 8 (mg/dL) Final AST 06/13/2023 17:03 47 Above high normal 13-40 (U/L) Final ALT 06/13/2023 17:03 27 7-40 (U/L) Fi nal Alkaline Phosphatase 06/13/2023 17:03 97 46 -116 (U/L) Final Performing Location [facility] [address] [place] [address]
--- OUTSIDE RECORDS SUMMARY | 2023-07-17 12:00 | External Medical Summary ---
Author Name Unknown Address Unknown Organization R1WR:[facility] [address] [place] [address] Laboratory Report Ordering Provider Test Date Status RACHEL FANG 06/13/2023 16:36:00 Final Observation Date Value Abnormality Reference (Units ) Status WBC 06/13/2023 16:43 6.0 4.0-9.1 (X10E+09/L) Final RBC 06/13/2023 16:43 4.51 Below low normal 4.6-6.1 (X10E+12/L) Final Hemoglobin 06/13/2023 16:43 15.6 13.4-17.5 (g/dL) Final Hematocrit 06/13/2023 16:43 45.7 40-51 (%) Final MCV 06/13/2023 16:43 101.3 Above high normal 79-92 (fL) Final MCH 06/13/2023 16:43 34.6 Above high normal 26.0-32.0 (pg) Final MCHC 06/13/2023 16:43 34.1 32-37 (g/dL) Final Platelets 06/13/2023 16:43 278 150-330 (X10E+09/L) Final RDW 06/13/2023 16:43 12.7 11.6-14.4 (%) Final Neutrophils 06/13/2023 16:43 59.6 34.0-67.9 (%) Final Lymphocytes 06/13/2023 16:43 21.5 Below low normal 21.8-53.1 (%) Final Monocytes 06/13/2023 16:43 7.8 5.3-12.2 (%) Final Eosinophils 06/13/2023 16:43 9.9 Above high normal 0.8-7.0 (%) Final Basophils 06/13/2023 16:43 1.2 0.1-1.2 (%) Final Absolute Neutrophils 06/13/2023 16:43 3.60 1.6-6.1 (X10E+09/L) Final Absolute Lymphocytes 06/13/2023 16:43 1.30 1.3-3.6 (X10E+09/L) Final Absolute Monocytes 06/13/2023 16:43 0.47 0.3-0.8 (X10E+09/L) Final Absolute Eosinophils 06/13/2023 16:43 0.60 Above high normal 0.0-0.5 (X10E+09/L) Final Absolute Basophils 06/13/2023 16:43 0.07 0.0-0.1 (X10E+09/L) Final Absolute NRBC 06/13/2023 16:43 0.00 0 (X10E+09/L) Final Nucleated RBC 06/13/2023 16:43 0.0 0.0-0.2 (/100 WBC) Final Performing Location [facility] [address] [place] [address]
--- OUTSIDE RECORDS SUMMARY | 2023-07-17 12:00 | External Medical Summary ---
Author Name Unknown Address Unknown Organization R1WR:[facility] [address] [place] [address] Laboratory Report Ordering Provider Test Date Status LUCAS PERALES 06/14/2023 06:59:00 Final Observation Date Value Abnormality Reference (Units ) Status Glucose 06/14/2023 07:37 100 Above high normal 70-99 (mg/dL) Final The reference interval for F asting glucose is 70 to 99. The reference interval for Random Glucose is 70 to 139. BUN 06/14/2023 07:37 13 9-23 (mg/dL) Final Creatinine 06/14/2023 07:37 0.67 Below low normal 0.70- 1.30 (mg/dL) Final eGFR 06/14/2023 07:37 102 >59 (mL/min/1 .73m2) Final eGFR = 142 X [min(Scr/k,1)]* *a [max(Scr/k,1)-1.200x0.9938age X 1.012 [if female] Where Scr is serum creatinine; k is 0.7 for females and 0.9 males; a is -0.241 for females and -0.302 for males; min indicates the minimum of Scr/k or 1, max indicates the maximum of Scr/k or 1 Sodium 06/14/2023 07:37 137 136-145 (mmol /L) Final Potassium 06/14/2023 07:37 4.0 3.4-5.0 (mmol /L) Final Chloride 06/14/2023 07:37 103 98-112 (mmol/ L) Final CO2 06/14/2023 07:37 26 20-31 (mmol/L ) Final Anion Gap 06/14/2023 07:37 12 7-15 (mmol/L) Final Calcium 06/14/2023 07:37 9.4 8.3-10.6 (mg/ dL) Final Total Protein 06/14/2023 07:37 6.9 5.7-8.2 ( g/dL) Final Albumin 06/14/2023 07:37 3.5 3.4-5.0 (g/dL ) Final Bilirubin, Total 06/14/2023 07:37 1.3 Above high jesse l 0.0-0.8 (mg/dL) Final AST 06/14/2023 07:37 37 13-40 (U/L) F inal ALT 06/14/2023 07:37 23 7-40 (U/L) Fi nal Alkaline Phosphatase 06/14/2023 07:37 84 46 -116 (U/L) Final Performing Location [facility] [address] [place] [id number]
--- OUTSIDE RECORDS SUMMARY | 2023-07-17 12:00 | External Medical Summary ---
Author Name Unknown Address Unknown Organization R1WR:[facility] [address] [place] [address] Laboratory Report Ordering Provider Test Date Status LUCAS PERALES 06/14/2023 06:59:00 Final Observation Date Value Abnormality Reference (Units ) Status Cholesterol 06/14/2023 07:37 176 <200 (mg/dL ) Final Age >19Y: Desireable <200 mg /dL Borderline High 200-239 mg/dL High >239 mg/dL Age 2-19Y: Acceptable <170 mg/dL Borderline High 170-199 mg/dL High >=200 mg/dL Triglyceride 06/14/2023 07:37 55 <150 (mg/d L) Final HDL 06/14/2023 07:37 104 (mg/dL) Fin al Age >19Y: <40 mg/dL: Low HDL -Cholesterol concentrations >= 60 mg/dL: Desirable HDL-Cholesterol concentrations Age 2-19Y: <40 mg/dL: Low HDL-Cholesterol concentrations >= 45 mg/dL: Desirable HDL-Cholesterol concentrations VLDL, Calculated 06/14/2023 07:37 11 <30 (m g/dL) Final LDL, Calculated 06/14/2023 07:37 61 <130 (m g/dL) Final Age <19Y: Optimal <100 mg/dL Near Optimal/Above Optimal 100-129 mg/dL Borderline Marco 130-159 mg/dL High 160-189 mg/dL Very High >189 mg/dL Age 2-19Y: Acceptable <110 mg/dL Borderline High 110-129 mg/dL High >=130 mg/dL Performing Location [facility] [address] [facility] [place] [address]
--- OUTSIDE RECORDS SUMMARY | 2023-07-17 12:00 | External Medical Summary | Summary of Care ---
Author Name Unknown Organization [facility] Address [address] [place] [address] Phone [phone] Care Team Providers Care Director Medical Affairs Name Role Phone Carlos Alberto Covington PA-C Primary Care Provider [phone] Encounter Details Date Type Department Care Team (Late st Contact Info) Description 06/17/2023 Population Health External Data Unspecified Department Allergies No known active allergiesdocumented as of this encounter (statuses as of 06/17/2023) Medications Medication Sig Dispensed Refills Start Date [...] as of this encounter (statuses as of 06/17/2023) Active Problems Problem Noted Date Diagnosed Date [...] as of this encounter (statuses as of 06/17/2023) Resolved Problems Problem Noted Date Diagnosed Date Resolved Date Screening PSA (prostate specific antigen) 11/10/2018 11/10/2018 documented as of this encounter (statuses as of 06/17/2023) Immunizations Name Administration Dates Next Due COVID-19 mRNA, LNP-s, No Pre serve, 2-Dose Series (Ortho-tag) 02/26/2021,07/08/2020,06/17/2020 Pneumococcal Conjugate Vacci ne, 20-valent ([id number]) 09/11/2022 Seasonal Influenza, Trivalen t, Adjuvanted, 65+ [...] Upcoming Encounters Date Type Department Care Team ([facility] Contact Info) Description 06/20/2023 8:00 AM EST Office Visit Family [address] [phone] Venita Davis MD [address] [place] [phone] 07/29/2023 11:20 AM EDT Office Visit Dermatology [address] [address] Bennie Randall PA-C [address] [place] [address] 09/30/2023 9:00 AM EDT Office Visit Pulmonary Medicine, [facility] [address] [place] [address] Derrick Hallman, DO [address] [place] [address] 10/17/2023 8:00 AM EDT Office Visit Orthopaedics Spine Surgery, [facility] [address] [place] [address] Michael Hermosillo MD [address] [place] [phone] Health Maintenance Due Date Last Done Comments [...] filedocumented as of this encounter Care Teams Director Medical Affairs Relationship Specialty Start Date End Date Carlos Alberto Covington PA-C [address] [place] [phone] PCP - General Physician Quality Control Lab Technician 11/19/22 documented as of this encounter
--- OUTSIDE RECORDS SUMMARY | 2023-07-17 12:00 | External Medical Summary ---
Author Name Unknown Address Unknown Organization R1WR:[facility] [address] [place] [address] Laboratory Report Ordering Provider Test Date Status DIAZLUCASELSI FARRELL 06/14/2023 06:59:00 Final Observation Date Value Abnormality Reference (Units ) Status Vitamin B12 06/14/2023 07:34 425 211-911 (pg /mL) Final Performing Location [facility] [address] [place] [address]
--- OUTSIDE RECORDS SUMMARY | 2023-07-17 12:00 | External Medical Summary ---
Author Name Unknown Address Unknown Organization R1WR:[facility] [address] [place] [address] Laboratory Report Ordering Provider Test Date Status LUCAS PERALESARGELIA 06/14/2023 06:59:00 Final Observation Date Value Abnormality Reference (Units ) Status TSH 06/14/2023 07:34 2.08 0.550-4.780 ( uIU/mL) Final Performing Location [facility] [address] [place] [address]
--- OUTSIDE RECORDS SUMMARY | 2023-07-17 12:00 | External Medical Summary ---
Author Name Unknown Address Unknown Organization R1WR:[facility] [address] [place] [address] Laboratory Report Ordering Provider Test Date Status DIAZLUCASLILY 06/14/2023 06:59:00 Final Observation Date Value Abnormality Reference (Units ) Status Phenobarbital 06/14/2023 07:32 <3.0 Below low normal 15 .0-40.0 (mcg/mL) Final Performing Location [facility] [address] [place] [address]
--- OUTSIDE RECORDS SUMMARY | 2023-07-17 12:01 | External Medical Summary ---
Author Name Unknown Address Unknown Organization R1WR:[facility] [address] [place] [address] Laboratory Report Ordering Provider Test Date Status KATHY HAGER 05/13/2023 04:43:00 Final Observation Date Value Abnormality Reference (Units ) Status Glucose 05/13/2023 06:25 80 70-99 (mg/dL) Final The reference interval for F asting glucose is 70 to 99. The reference interval for Random Glucose is 70 to 139. BUN 05/13/2023 06:25 9 9-23 (mg/dL) Final Creatinine 05/13/2023 06:25 0.49 Below low normal 0.70- 1.30 (mg/dL) Final eGFR 05/13/2023 06:25 112 >59 (mL/min/1 .73m2) Final eGFR = 142 X [min(Scr/k,1)]* *a [max(Scr/k,1)-1.200x0.9938age X 1.012 [if female] Where Scr is serum creatinine; k is 0.7 for females and 0.9 males; a is -0.241 for females and -0.302 for males; min indicates the minimum of Scr/k or 1, max indicates the maximum of Scr/k or 1 Sodium 05/13/2023 06:25 137 136-145 (mmol /L) Final Potassium 05/13/2023 06:25 3.5 3.4-5.0 (mmol /L) Final Hemolysis: Results may be ad versely affected. Recommend recollect. Chloride 05/13/2023 06:25 104 98-112 (mmol/ L) Final CO2 05/13/2023 06:25 22 20-31 (mmol/L ) Final Anion Gap 05/13/2023 06:25 14 7-15 (mmol/L) Final Calcium 05/13/2023 06:25 8.8 8.3-10.6 (mg/ dL) Final Performing Location [facility] [address] [place] [address]
--- OUTSIDE RECORDS SUMMARY | 2023-07-17 12:01 | External Medical Summary | Summary of Care ---
Author Name Unknown Organization [facility] Address [address] [place] [address] Phone [phone] Care Team Providers Care Butane Compressor Operator Name Role Phone Carlos Alberto Covington PA-C Primary Care Provider [phone] Encounter Details Date Type Department Care Team ([facility] st Contact Info) Description 05/13/2023 External Data Patient Risk Medial Allergies No known active allergiesdocumented as of this encounter (statuses as of 05/13/2023) Medications Medication Sig Dispensed Refills Start Date [...] or Wheezing. 54 g 1 11/21/2022 Active Cephalexin 500 MG Oral Capsule (Keflex) Take 1 Capsule by mouth in the morning and 1 Capsule at noon and 1 Capsule before bedtime. 30 Capsule 0 02/21/2023 Active Sertraline HCl 25 MG Oral Tablet (Zoloft)Indications :Current moderate episode of major depressive disorder without prior episode (HCC) Take 1 Tablet by mouth in the morning. 90 Tablet 3 04/01/2023 Active Additional Information Patient not taking.Reported on 04/29/2023 Clobetasol Propionate 0.05 % External SolutionIndications :Skin irritation APPLY TO AFFECTED AREA DAILY NEEDED FOR SCALP IRRITATION 50 mL 1 04/18/2023 Active Loratadine 10 MG Oral Tablet (Claritin)Indicatio ns:Rash and nonspecific skin eruption,Scalp irritation,Pruritus Take 1 Tablet by mouth in the morning. 30 Tablet 11 04/18/2023 Active Additional Information Patient not taking.Reported on 04/29/2023 Ketoconazole 2 % External Shampoo (Nizoral)Indication s:Scalp irritation Apply topically to affected area every 3 days for 28 days. Shampoo twice a week 120 mL 1 04/18/2023 05/16/2023 Active Folic Acid 1 MG Oral TabletIndications:L ow folic acid Take 1 Tablet by mouth in the morning. 90 Tablet 3 04/24/2023 Active Additional Information Patient not taking.Reported on 04/29/2023 Mupirocin 2 % External Ointment (Bactroban) Apply to the face and scalp 2-3 times daily 30 g 2 04/29/2023 Active documented as of this encounter (statuses as of 05/13/2023) Active Problems Problem Noted Date Diagnosed Date [...] as of this encounter (statuses as of 05/13/2023) Resolved Problems Problem Noted Date Diagnosed Date Resolved Date Screening PSA (prostate specific antigen) 11/10/2018 11/10/2018 documented as of this encounter (statuses as of 05/13/2023) Immunizations Name Administration Dates Next Due COVID-19 mRNA, LNP-s, No Pre serve, 2-Dose Series ([employer]) 02/26/2021,07/08/2020,06/17/2020 Pneumococcal Conjugate Vacci ne, 20-valent ([id number]) 09/11/2022 Seasonal Influenza, Trivalen t, Adjuvanted, 65+ yrs 02/26/2021 TDAP (age 10 and older)(Boostrix) 04/25/2018 documented as of this encounter Social History Tobacco Use Types Packs/Day Years Used Date Smoking Tobacco: Every Day Cigarettes 1 Smokeless Tobacco: Never Alcohol Use Standard Drinks/Week Comments Yes 6 (1 standard drink = 0.6 oz pur e alcohol) Wine all day AUDIT-C Answer Date Recorded Frequency of Alcohol Consumption 4 or more times a week 11/03/2018 Average Number of Drinks 1 or 2 019 Frequency of Binge Drinking Never 10/11 PHQ-2 Answer Date Recorded PHQ Adult Total Score 19 03/05/2023 Sex and Gender Information Value Date Recorded Sex Assigned at Not on file Gender Identity Not on file Sexual Orientation Not on file Job Start Date Occupation Industry Not on file Not on file Not on file documented as of this encounter Plan of Treatment Upcoming Encounters Date Type Department Care Team ([facility] Contact Info) Description 07/29/2023 11:20 AM EDT Office Visit Dermatology [facility] [address] [place] [phone] Bennie Randall PA-C [address] [place] [phone] Health Maintenance Due Date Last Done Comments [...] Additional history exists Lipid Panel 04/18/2028 04/18/2023, 09/2020, 08/15/2020, Additional history exists DTaP,Tdap,and Td [...] filedocumented as of this encounter Care Teams Butane Compressor Operator Relationship Specialty Start Date End Date Carlos Alberto Covington PA-C [address] [place] [address] [phone] PCP - General Physician Workers Compensation Administrator 11/19/22 documented as of this encounter
--- OUTSIDE RECORDS SUMMARY | 2023-07-17 12:01 | External Medical Summary ---
Author Name Unknown Address Unknown Organization R1WR:[facility] [address] [place] [address] Laboratory Report Ordering Provider Test Date Status KATHY HAGER 05/14/2023 08:17:00 Final Observation Date Value Abnormality Reference (Units ) Status Magnesium 05/14/2023 08:48 1.8 1.6-2.6 (mg/d L) Final Performing Location [facility] [address] [place] [address]
--- OUTSIDE RECORDS SUMMARY | 2023-07-17 12:01 | External Medical Summary ---
Author Name Unknown Address Unknown Organization : Laboratory Report Ordering Provider Test Date Status ADDY CHENG 05/19/2023 10:54:05 Final Observation Date Value Abnormality Reference (Units ) Status Ethyl glucuronide [Mass/volume] in Urine 05/19/2023 10:54:05 >96457 Above high normal <500 (ng/mL) Final Ethyl sulfate [Mass/volume] in Urine 05/19/2023 10:54:05 >40890 Above high normal <100 (ng/mL) Final This drug testing is for med ical treatment only.
Analysis was performed as non-forensic testing and
these results should be used only by healthcare
providers to render diagnosis or treatment, or to
monitor progress of medical conditions.
For assistance with interpreting these drug results,
please contact a [facility]
Specialist: [phone] ( ), M-F,
8am-6pm EST.
For additional information, please refer to
http://education.Jaxtr/faq/QNL829
(This link is being provided for informational/
educational purposes only.)
This test was developed and its analytical performance
characteristics have been determined by [employer]
[place], [place]. It has
not been cleared or approved by the U.S. Food and Drug
Administration. This assay has been validated pursuant
to the CLIA regulations and is used for clinical
purposes.

Test Performed at:
[facility]
[address] [facility]
[place], [place]
Claude Nunes M.D., Ph.D.,Director of Laboratories Performing Location
--- OUTSIDE RECORDS SUMMARY | 2023-07-17 12:01 | External Medical Summary ---
Author Name Unknown Address Unknown Organization R1WR:[facility] [address] [place] [address] Laboratory Report Ordering Provider Test Date Status KATHY HAGER 05/13/2023 04:43:00 Final Observation Date Value Abnormality Reference (Units ) Status Methylmalonic Acid, Serum 05/16/2023 09:26 103 Final Reference range: 87 to 318 U nit: nmol/L See Note 1 Note 1 This test was developed and its analytical performance characteristics have been determined by [employer]. It has not been cleared or approved by the FDA. This assay has been validated pursuant to the CLIA regulations and is used for clinical purposes. Test performed at [facility] [address] Director: SARAH CODY MD Performing Location [facility] [address] [place] [address]
--- OUTSIDE RECORDS SUMMARY | 2023-07-17 12:01 | External Medical Summary ---
Author Name Unknown Address Unknown Organization R1WR:[facility] [address] [place] [address] Laboratory Report Ordering Provider Test Date Status KATHY HAGER 05/14/2023 08:17:00 Final Observation Date Value Abnormality Reference (Units ) Status WBC 05/14/2023 08:28 4.9 4.0-9.1 (X10E +09/L) Final RBC 05/14/2023 08:28 3.82 Below low normal 4.6-6. 1 (X10E+12/L) Final Hemoglobin 05/14/2023 08:28 13.6 13.4-17.5 (g /dL) Final Hematocrit 05/14/2023 08:28 39.5 Below low normal 40-51 (%) Final MCV 05/14/2023 08:28 103.4 Above high normal 79-92 (fL) Final MCH 05/14/2023 08:28 35.6 Above high normal 26.0- 32.0 (pg) Final MCHC 05/14/2023 08:28 34.4 32-37 (g/dL) Final Platelets 05/14/2023 08:28 195 150-330 (X10E +09/L) Final RDW 05/14/2023 08:28 13.0 11.6-14.4 (%) Final Performing Location [facility] [address] [place] [address]
--- OUTSIDE RECORDS SUMMARY | 2023-07-17 12:01 | External Medical Summary ---
Author Name Unknown Address Unknown Organization R1WR:[facility] [address] [place] [address] Laboratory Report Ordering Provider Test Date Status MIGUE HAGERLOI 05/13/2023 04:43:00 Final Observation Date Value Abnormality Reference (Units ) Status Magnesium 05/13/2023 06:25 1.6 1.6-2.6 (mg/d L) Final Performing Location [facility] [address] [place] [address]
--- OUTSIDE RECORDS SUMMARY | 2023-07-17 12:01 | External Medical Summary | Summary of Care ---
Author Name Unknown Organization [facility] Address [address] [place] [address] Phone [phone] Care Team Providers Care Early Childhood Education Instructor Name Role Phone Carlos Alberto Covington PA-C Primary Care Provider [phone] Reason for Visit * Reason Onset Date Comments MyCode Nonconsent - Not interested at this time 05/16/2023 Encounter Details Date Type Department Care Team (Late st Contact Info) Description 05/16/2023 Orders Only [facility] [address] [place] [address] Adrianna Turner CHRA MyCode Nonconsent Documentation Allergies No known active allergiesdocumented as of this encounter (statuses as of 05/16/2023) Medications Medication Sig Dispensed Refills Start Date [...] as of this encounter (statuses as of 05/16/2023) Active Problems Problem Noted Date Diagnosed Date [...] as of this encounter (statuses as of 05/16/2023) Resolved Problems Problem Noted Date Diagnosed Date Resolved Date Screening PSA (prostate specific antigen) 11/10/2018 11/10/2018 documented as of this encounter (statuses as of 05/16/2023) Immunizations Name Administration Dates Next Due COVID-19 mRNA, LNP-s, No Pre serve, 2-Dose Series (Pfizer) 02/26/2021,07/08/2020,06/17/2020 Pneumococcal Conjugate Vacci ne, 20-valent (Feqlisg19) 09/11/2022 Seasonal Influenza, Trivalen t, Adjuvanted, 65+ [...] on file documented as of this encounter Progress Notes * Adrianna Turner CHRA - 05/16/2023 9:30 AM EST MyCode Nonconsent Documentation Jevon Johnson was approached in the clinic regarding participation in the [employer] Project and didnot consent. documented in this encounter Plan of Treatment Upcoming Encounters Date Type Department Care Team ([facility] st Contact Info) Description 07/29/2023 11:20 AM EDT Office Visit Dermatology [address] [phone] Bennie Randall PA-C [address] [place] [phone] Health Maintenance Due Date Last Done Comments [...] filedocumented as of this encounter Care Teams Early Childhood Education Instructor Relationship Specialty Start Date End Date Carlos Alberto Covington PA-C [address] [place] [phone] PCP - General Physician German Teacher 11/19/22 documented as of this encounter
--- OUTSIDE RECORDS SUMMARY | 2023-07-17 12:01 | External Medical Summary | Summary of Care ---
Author Name Unknown Organization [facility] Address [address] [place] [address] Phone [phone] Care Team Providers Care Rotary Envelope Machine Operator Name Role Phone Carlos Alberto Covington PA-C Primary Care Provider [phone] Reason for Visit * Reason Onset Date Comments Advice 04/17/2023 Encounter Details Date Type Department Care Team ([facility] st Contact Info) Description 04/17/[address] [phone] Carlos Alberto Covington PA-C [address] [place] [phone] Advice Allergies No known active allergiesdocumented as of this encounter (statuses as of 06/12/2023) Medications Medication Sig Dispensed Refills Start Date End Date Status Daily-Maciej Multivitamin Oral Tablet Take 1 Tablet by mouth in the morning. 0 3 Active Albuterol Sulfate HFA 108 (90 Base) MCG/ACT Inhalation Aerosol Solution INHALE TWO PUFFS BY MOUTH EVERY 4 HOURS NEEDED FOR SHORTNESS OF BREATH OR WHEEZING 18 g 4 3 09/11/19 24 Active Lisinopril 10 MG Oral Tablet (Prinivil)Indicat ions:HTN, goal below 130/80 Take 1 Tablet by mouth in the morning. 90 Tablet 1 3 Active Ventolin HFA 108 (90 Base) MCG/ACT Inhalation Aerosol Solution Inhale 2 Puffs by mouth every 4 hours as needed for Shortness of Breath or Wheezing. 54 g 1 3 Active Sertraline HCl 25 MG Oral Tablet (Zoloft)Indicatio ns:Current moderate episode of major depressive disorder without prior episode (HCC) Take 1 Tablet by mouth in the morning. 90 Tablet 3 3 Active Clobetasol Propionate 0.05 % External SolutionIndicatio ns:Skin irritation Apply topically to affected area daily as needed (scalp irritation). 25 mL 1 3 04/18/20 23 Discontinued Cephalexin 500 MG Oral Capsule (Keflex) Take 1 Capsule by mouth in the morning and 1 Capsule at noon and 1 Capsule before bedtime. 30 Capsule 0 3 05/16/19 24 Discontinued([facility] List Clean Up) documented as of this encounter (statuses as of 06/12/2023) Active Problems Problem Noted Date Diagnosed Date [...] as of this encounter (statuses as of 06/12/2023) Resolved Problems Problem Noted Date Diagnosed Date Resolved Date Screening PSA (prostate specific antigen) 11/10/2018 11/10/2018 documented as of this encounter (statuses as of 06/12/2023) Immunizations Name Administration Dates Next Due COVID-19 mRNA, LNP-s, No Pre serve, 2-Dose Series (Pfizer) 02/26/2021,07/08/2020,06/17/2020 Pneumococcal Conjugate Vacci ne, 20-valent ([id number]) 09/11/2022 Seasonal Influenza, Trivalen t, Adjuvanted, 65+ [...] on file documented as of this encounter Miscellaneous Notes * Telephone Encounter - Kareen Carlson LPN - 04/18/2023 11:57 AM EST Called and spoke with patient and he states he was able to get this resolved at appointment today. * Telephone Encounter - Kne Bradshaw DO - 04/18/2023 6:41 AM EST Needs to be evaluated for these symptoms Last time was prescribed Keflex for possible skin infection was in December. Is scheduled for appointment today. Symptoms can be discussed then * Telephone Encounter - Erica Cook PHARM Tech - 04/17/2023 12:00 PM EST Pt called stating he had a call that mail order was sending an antibiotic. Checked with mail order and they do not have an antibiotic being sent. Pt was wondering if could send in an antibiotic tolocal pharmacy. Pt said he has an infection on his scalp and last time dr gave him medication. Pt said it was in pill form. Thanks, Erica Cook Meteorological Observer [facility] 04/17/2023,12:01 PM * Telephone Encounter - Ifeoma Noe OSA - 04/17/2023 11:51 AM EST Pt received an email that there was antibiotic being mailed to him from mail order pharmacy. Pt is asking how quickly it can be sent? I see no order in chart. Please advise. Also transferred Pt to Pharmacy for Pt to find out how long it may take for shipping. documented in this encounter Plan of Treatment Upcoming Encounters Date Type Department Care Team ([facility] st Contact Info) Description 06/20/2023 8:00 AM EST Office Visit Family Practice [address] [phone] Venita Davis MD [address] [place] [phone] 07/29/2023 11:20 AM EDT Office Visit Dermatology [address] [phone] Bennie Randall PA-C [address] [place] [address] 09/30/2023 9:00 AM EDT Office Visit [facility] [address] [facility] [address] Derrick Hallman M, DO [address] [place] [address] 10/17/2023 8:00 AM EDT Office Visit Orthopaedics Spine Surgery, [facility] [address] [facility] [place] [address] Michael Hermosillo MD [address] [place] [address] Health Maintenance Due Date Last Done Comments [...] filedocumented as of this encounter Care Teams Rotary Envelope Machine Operator Relationship Specialty Start Date End Date Carlos Alberto Covington PA-C [address] [place] [address] PCP - General Physician High School Hvac R Instructor 11/19/22 documented as of this encounter
--- OUTSIDE RECORDS SUMMARY | 2023-07-17 12:01 | External Medical Summary ---
Author Name Unknown Address Unknown Organization R1WR:[facility] [address] [place] [place] [address] Laboratory Report Ordering Provider Test Date Status KATHY HAGER 05/14/2023 08:17:00 Final Observation Date Value Abnormality Reference (Units ) Status Glucose 05/14/2023 08:48 96 70-99 (mg/dL) Final The reference interval for F asting glucose is 70 to 99. The reference interval for Random Glucose is 70 to 139. BUN 05/14/2023 08:48 13 9-23 (mg/dL) Final Creatinine 05/14/2023 08:48 0.47 Below low normal 0.70- 1.30 (mg/dL) Final eGFR 05/14/2023 08:48 114 >59 (mL/min/1 .73m2) Final eGFR = 142 X [min(Scr/k,1)]* *a [max(Scr/k,1)-1.200x0.9938age X 1.012 [if female] Where Scr is serum creatinine; k is 0.7 for females and 0.9 males; a is -0.241 for females and -0.302 for males; min indicates the minimum of Scr/k or 1, max indicates the maximum of Scr/k or 1 Sodium 05/14/2023 08:48 136 136-145 (mmol /L) Final Potassium 05/14/2023 08:48 3.9 3.4-5.0 (mmol /L) Final Chloride 05/14/2023 08:48 106 98-112 (mmol/ L) Final CO2 05/14/2023 08:48 24 20-31 (mmol/L ) Final Anion Gap 05/14/2023 08:48 10 7-15 (mmol/L) Final Calcium 05/14/2023 08:48 8.8 8.3-10.6 (mg/ dL) Final Performing Location [facility] [address] [place] [address]
--- OUTSIDE RECORDS SUMMARY | 2023-07-17 12:01 | External Medical Summary | Summary of Care ---
Author Name Unknown Organization [facility] Address [address] [place] [address] Phone [phone] Care Team Providers Care Career And Transition Teacher Name Role Phone Cralos Alberto Covington PA-C Primary Care Provider + [phone] Reason for Referral * Evaluate & Treat - Unlimited Visits (Within 10 days (routine)) - Authorized Specialty Diagnoses / Procedures Referred By Sampson yepez Referred To Contact Physical Therapy / Physical Medicine And Rehab Diagnoses Neurologic gait dysfunction CVA, old, ataxia Adeel Douglas PA-C [address] [place] [address] Referral ID Status Reason Start Date Expiration Date Visits Requested Visits Authorized [id number] Authorized Specialty Services Required 05/16/[id number] Question Answer Referral Priority Within 10 days (routine) Where should this appointment be scheduled? [facility] * Evaluate & Treat - Unlimited Visits (Within 10 days (routine)) - Authorized Specialty Diagnoses / Procedures Referred By Sampson yepez Referred To Contact Neuro/Ortho Surgery - Spine. / Neurological Surgery Diagnoses Compression fracture of lumbar vertebra with routine healing, unspecified lumbar vertebral level, subsequent encounter Adeel Douglas PA-C [address] [place] [address] Referral ID Status Reason Start Date Expiration Date Visits Requested Visits Authorized [id number] Authorized Specialty Services Required 05/16/[phone] Question Answer Referral Priority Within 10 days (routine) Where should this appointment be scheduled? [facility] Select spine region: Back - Thoracic/Lumbar Do you have any recent complete loss of bladder or bowel function? No * Evaluate & Treat - Unlimited Visits (Within 10 days (routine)) - Authorized Specialty Diagnoses / Procedures Referred By Sampson yepez Referred To Contact Addiction Medicine Diagnoses Hospital discharge follow-up Alcohol use disorder Adeel Douglas PA-C [address] [place] [phone] Referral ID Status Reason Start Date Expiration Date Visits Requested Visits Authorized [id number] Authorized Specialty Services Required 05/16/[phone] Question Answer Referral Priority Within 10 days (routine) Where should this appointment be scheduled? [facility] Was the patient hospitalized for their addiction in the past in the past 6 months? Yes Did this include Endocarditis or Soft Tissue Infection? No Has the patient overdosed on any substance in the past? No Reason for Referral: Alcohol * Evaluate & Treat - Unlimited Visits (Within 10 days (routine)) - Authorized Specialty Diagnoses / Procedures Referred By Sampson yepez Referred To Contact Pulmonary Diseases / Pulmonary Diagnoses Hospital discharge follow-up Lung mass Abnormal chest CT Adeel Douglas PA-C [address] [place] [id number] Referral ID Status Reason Start Date Expiration Date Visits Requested Visits Authorized [id number] Authorized Specialty Services Required 05/16/[phone] Question Answer Referral Priority Within 10 days (routine) Where should this appointment be scheduled? [facility] Primary Reason for Referral? Other Comments Refer to [facility] discharge/imaging studies. Reason for Visit * Reason Onset Date Comments Hospital Follow-Up [facility] for fall at home. Hx of compression fx, old stroke,fluid on his lungs,alcohol abuse. Pt would like to stay within the [facility] for all testing. Hospital Follow-Up 05/16/2023 Encounter Details Date Type Department Care Team ([facility] Contact Info) Description 05/16/2023 9:40 AM EST Office Visit [address] [place] [phone] Adeel Douglas PA-C [address] [place] [address] Hospital discharge follow-up*; Alcohol use disorder; Compression fracture of lumbar vertebra with routine healing, unspecified lumbar vertebral level, subsequent encounter; CVA, old, ataxia; Neurologic gait dysfunction; Abnormal chest CT; Lung mass; Special screening for malignant neoplasms, colon Allergies No known active allergiesdocumented as of [...] BREATH OR WHEEZING 18 g 4 09/11/2022 4 Active Lisinopril 10 MG Oral Tablet (Prinivil)Indicati ons:HTN, goal below 130/80 Take 1 Tablet by mouth in the morning. 90 Tablet 1 11/20/2022 Active Ventolin HFA 108 (90 Base) MCG/ACT Inhalation Aerosol Solution Inhale 2 Puffs by mouth every 4 hours as needed for Shortness of Breath or Wheezing. 54 g 1 11/21/2022 Active Sertraline HCl 25 MG Oral Tablet (Zoloft)Indication s:Current moderate episode of major depressive disorder without prior episode (HCC) Take 1 Tablet by mouth in the morning. 90 Tablet 3 04/01/2023 Active Clobetasol Propionate 0.05 % External SolutionIndication s:Skin irritation APPLY TO AFFECTED AREA DAILY NEEDED FOR SCALP IRRITATION 50 mL 1 04/18/2023 Active Loratadine 10 MG Oral Tablet (Claritin)Indicati ons:Rash and nonspecific skin eruption,Scalp irritation,Pruritu s Take 1 Tablet by mouth in the morning. 30 Tablet 11 04/18/2023 Active Additional Information Patient not taking.Reported on 04/29/2023 Ketoconazole 2 % External Shampoo (Nizoral)Indicatio ns:Scalp irritation Apply topically to affected area every 3 days for 28 days. Shampoo twice a week 120 mL 1 04/18/2023 4 Active Folic Acid 1 MG Oral TabletIndications: Low folic acid Take 1 Tablet by mouth in the morning. 90 Tablet 3 04/24/2023 Active Mupirocin 2 % External Ointment (Bactroban) Apply to the face and scalp 2-3 times daily 30 g 2 04/29/2023 Active Atorvastatin Calcium 40 MG Oral Tablet (Lipitor)Indicatio ns:CVA, old, ataxia Take 1 Tablet by mouth in the morning. 90 Tablet 3 05/16/2023 Active Aspirin 81 MG Oral Tablet Delayed ReleaseIndications :CVA, old, ataxia Take 1 Tablet by mouth in the morning. 100 Tablet 3 05/16/2023 Active Thiamine HCl 100 MG Oral Tablet (vitamin B-1) Take 1 Tablet by mouth in the morning. 0 05/16/2023 Active Cephalexin 500 MG Oral Capsule (Keflex) Take 1 Capsule by mouth in the morning and 1 Capsule at noon and 1 Capsule before bedtime. 30 Capsule 0 02/21/2023 4 Discontinue d(Medicatio n List Clean Up) documented as of this [...] mRNA, LNP-s, No Pre serve, 2-Dose Series ([email or web address]) 02/26/2021,07/08/2020,06/17/2020 Pneumococcal Conjugate Vacci ne, 20-valent ([id number]) 09/11/2022 Seasonal Influenza, Trivalen t, Adjuvanted, 65+ yrs 02/26/2021 TDAP (age 10 and older)(Boostrix) 04/25/2018 documented as of this encounter Social History Tobacco Use Types Packs/Day Years Used Date Smoking Tobacco: Every Day Cigarettes 1 Smokeless Tobacco: Never Tobacco Cessation:Ready to Q uit: Not Asked; Counseling Given: Not Answered Alcohol Use Standard Drinks/Week Comments Yes 6 [...] on file documented as of this encounter Last Filed Vital Signs Vital Sign Reading Time Taken Comments Blood Pressure 142/90 05/16/2023 9:47 AM EST Pulse 74 05/16/2023 9:47 AM EST Temperature 36.8 C (98.2 F) 05/16/2023 9:47 AM ES T Respiratory Rate 16 05/16/2023 9:47 AM EST Oxygen Saturation 100% 05/16/2023 9:47 AM EST Inhaled Oxygen Concentration - - Weight 66.2 kg (146 lb) 05/16/2023 9:47 AM EST Height - - Body Mass Index 20.78 03/05/2023 9:58 AM EDT documented in this encounter Patient Instructions * Patient Instructions* David Schroeder LPN - 05/16/2023 9:47 AM EST Images from the original note were not included. Colorectal Cancer Screening Colorectal cancer (cancer in the colon or rectum) is a leading cause of cancer deaths in the [place] But it doesnt have to be. When this cancer is found and removed early, the chances of a full recovery are very good. Because colorectal cancer rarely causes symptoms in its early stages, screening for the disease is important. Its even more crucial if you have risk factors for the disease. Learn more about colorectal cancer and its risk factors. Then talk to your healthcare provider about being screened. You could be saving your own life. Risk factors for colorectal cancer Your risk of having colorectal cancer increases if you: Are 50 years of age or older Have a family history or personal history of colorectal cancer or polyps Have a personal history of type 2 diabetes, Crohns disease, or ulcerative colitis Have an inherited genetic syndrome like Diamond syndrome (also known as HNPCC) or familial adenomatous polyposis (FAP) Are very overweight Are not physically active Smoke Drink a lot of alcohol Eat a lot of red or processed meat The colon and rectum Waste from food you eat enters the colon from the small intestine. As it travels through the colon,the waste (stool) loses water and becomes more solid. Intestinal muscles push it toward the sigmoid--the last section of the colon. Stool then moves into the rectum, where its stored until its ready to leave the body during a bowel movement. How cancer develops Polyps are growths that form on the inner lining of the colon or rectum. Most are benign, which means they arent cancerous. But over time, some polyps can become cancer (malignant). This happens when cells in these polyps begin growing abnormally. In time, malignant cells invade more and more ofthe colon and rectum. The cancer may also spread to nearby organs or lymph nodes or to other parts of the body. Finding and removing polyps can help prevent cancer from ever forming. Your screening Screening means looking for a health problem before you have symptoms. During screening for colorectal cancer, your healthcare provider will ask about your health history, examine you, and do one or more tests. History and exam The history and exam involve the following: Health history. Your healthcare provider will ask about your health history. Mention if a family member has had colon cancer or polyps. Also mention any health problems you have had in the past. Digital rectal exam (JANIYA). During a JANIYA, the healthcare provider inserts a lubricated gloved fingerinto the rectum. The test is painless and takes less than a minute. Healthcare providers agree thatthis test alone is not enough to screen for colorectal cancer. Screening test choices: Fecal occult blood test (FOBT) or fecal immunochemical test (FIT) These tests check for occult blood in stool (blood you cant see). Hidden blood may be a sign of colon polyps or cancer. A small sample of stool is tested for blood in a laboratory. Most often, youcollect this sample at home using a kit your healthcare provider gives you. Follow the instructionscarefully for using this kit. You might need to avoid certain foods and medicines before the test, as directed. Barium enema with contrast (double-contrast barium enema) This test uses X-rays to provide images of the entire colon and rectum. The day before this test, you will need to do a bowel prep to clean out the colon and rectum. A bowel prep is a liquid diet plus strong laxatives or enemas. You will be awake for the test, but you may be given medicine to help you relax. At the start of the test, a radiologist (a healthcare provider who specializes in imagingtests) places a soft tube into the rectum. The tube is used to fill the colon with a contrast liquid (barium) and air. This can be uncomfortable for some people. The liquid helps the colon show up clearly on the X-rays. Because the test uses X-rays, it exposes you to a small amount of radiation. Virtual colonoscopy This exam is also called a CT colonography. It uses a series of X-ray photographs to create a 3-D view of the colon and rectum. The day before the test, you will need to do a bowel prep to clean out your colon. Your healthcare provider will give you instructions on how to do this. During the procedure, you will lie on a table that is part of a special X-ray machine called a CT scanner. A small tube will be placed into your rectum to fill the colon and rectum with air. This can be uncomfortable for some people. Then, the table will move into the machine and pictures will be taken of your colonand rectum. A computer will combine these photos to create a 3-D picture. Because the test uses X-rays, it exposes you to a small amount of radiation. Cologuard Cologuard is an easy to use, noninvasive colon cancer screening test that you can use in the privacy of your own home. It identifies altered DNA and/or blood in stool, which are associated with the possibility of colon cancer or precancer. DNA is continuously shed from cells in the intestinal lining, where it is passed into the stool. Ifcancer or precancer is present, abnormal cells will shed into the colon and stool along with normalcells. A molecular biology process is used to capture specific pieces of DNA for further analysis. Scope exams Here are two types of scope exams: Colonoscopy. This test can be used to find and remove polyps anywhere in the colon or rectum. The day before the test, you will do a bowel prep. This is a liquid diet plus a strong laxative solution or an enema. The bowel prep will cleanse your colon. You will be given instructions for this. Just before the test, you are given a medicine to make you sleepy. Then, a long, flexible, lighted tube called a colonoscope is gently inserted into the rectum and guided through the entire colon. Images ofthe colon are viewed on a video screen. Any polyps that are found are removed and sent to a lab fortesting. If a polyp cant be removed, a sample of tissue is taken and the polyp might be removed l ater during surgery. You will need to bring someone with you to drive you home after this test. Sigmoidoscopy. This test is similar to colonoscopy, but focuses only on the sigmoid colon and rectum. As with colonoscopy, bowel prep must be done the day before this test. It might not need to be ascomplete as the bowel prep for a colonoscopy. You are awake during the procedure, but you may be given medicine to help you relax. During the test, the healthcare provider guides a thin, flexible, lighted tube called a sigmoidoscope through your rectum and lower colon. The images are displayed on avideo screen. Polyps are removed, if possible, and sent to a lab for testing. Colonoscopy is the only screening test that lets your healthcare provider see the entire colon and rectum. This test also lets your healthcare provider remove any pieces of tissue that need to be looked at by a lab. If something suspicious is found using any other tests, you will likely need a colonoscopy. When to call your healthcare provider after a test Call your healthcare provider if you have any of the following after any screening test: Bleeding Fever of 100.4F (38C) or higher, or as directed by your healthcare provider Abdominal pain Vomiting Date Last Reviewed: 03/15/201519990708-8509 [employer]. [address] [place] [address], [place] [address]. All rights reserved. This information is not intended as a substitute for professional medical care. Always follow your healthcare professional's instructions. documented in this encounter Progress Notes * Adeel Douglas PA-C - 05/16/2023 9:56 AM EST SUBJECTIVE: Jevon Johnson is a 68 year old male. Chief Complaint Patient presents with Hospital Follow-Up [facility] for fall at home. Hx of compression fx, old stroke,fluid on his lungs,alcohol abuse. Pt would like to stay within the [facility] for all testing. Recent Admission: Patient was recently admitted to [facility] 05/11/23 due to fall. Dx L1 compression fracture, hx CVA, abnormal CT chest. The date of discharge was 05/14/23. Discharge report received and reviewed. Here today with [facility]. Patient admits fall due to "I was drinking too much". "This is a 68-year-old male with a past medical history of hypertension, anxiety and depression, alcohol use disorder, tobacco use disorder presented as a transfer from [facility] for evaluation of fall with elevated alcohol levels, L1 compression fracture and an abnormal chest CT. He was in hisnormal state of health on the day of admission, rocking on his rocking chair on his porch when the chair broke and he fell. He does not recall if he hit his head but he was unable to ambulate secondary to pain in his left hip. He does admit to drinking 1 bottle of wine daily for approximately 30 years. HPI at a later time was taken from his who states he drinks approximately 2 bottles of wine per day and on the day of admission he drank an entire bottle of gin. In the ED he had a traumaworkup. CT head showed a low-attenuation area in the medial aspect of the left cerebellar hemisphere without associated volume loss, findings are nonspecific could be secondary to subacute infarct. CT chest demonstrated a prominent consolidation and possible collapse of the segment of the right lower lobe with questionable mass. L1 compression of the superior endplate." Now agreeable to alcohol disorder treatment options. Last alcohol intake yesterday. Aware of risks of "cold turkey" cessation given long-term excessive alcohol intake. Today denies any pain. Reports breathing well. Voiding normally. Was referred to Pulmonology, dot compliance specialist, [facility]. Aware he is to be taking statin and 81mg ASA due to old CVA concerns and prevention. Hospital report indicates cardiac echo was completed and unremarkable. Patient is to continue lisinopril for HTN control. Will start home BP monitoring, has cuff. 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 Albuterol Sulfate HFA 108 (90 Base) MCG/ACT Inhalation Aerosol Solution INHALE TWO PUFFS BY MOUTH EVERY 4 HOURS NEEDED FOR SHORTNESS OF BREATH OR WHEEZING 18 g 4 Lisinopril 10 MG Oral Tablet (Prinivil) Take 1 Tablet by mouth in the morning. 90 Tablet 1 Ventolin HFA 108 (90 Base) MCG/ACT Inhalation Aerosol Solution Inhale 2 Puffs by mouth every 4 hours as needed for Shortness of Breath or Wheezing. 54 g 1 Sertraline HCl 25 MG Oral Tablet (Zoloft) Take 1 Tablet by mouth in the morning. 90 Tablet 3 Clobetasol Propionate 0.05 % External Solution APPLY TO AFFECTED AREA DAILY NEEDED FOR SCALP IRRITATION 50 mL 1 Ketoconazole 2 % External Shampoo (Nizoral) Apply topically to affected area every 3 days for 28 days. Shampoo twice a week 120 mL 1 Folic Acid 1 MG Oral Tablet Take 1 Tablet by mouth in the morning. 90 Tablet 3 Mupirocin 2 % External Ointment (Bactroban) Apply to the face and scalp 2-3 times daily 30 g 2 Atorvastatin Calcium 40 MG Oral Tablet (Lipitor) Take 1 Tablet by mouth in the morning. 90 Tablet 3 Aspirin 81 MG Oral Tablet Delayed Release Take 1 Tablet by mouth in the morning. 100 Tablet 3 Thiamine HCl 100 MG Oral Tablet (vitamin B-1) Take 1 Tablet by mouth in the morning. Loratadine 10 MG Oral Tablet (Claritin) Take 1 Tablet by mouth in the morning. (Patient not taking:Reported on 04/29/2023) 30 Tablet 11 No current facility-administered medications for this visit. Current and discharge medications have been reconciled. Review of patient's allergies indicates: No Known Allergies OBJECTIVE: BP 142/90 | Pulse 74 | Temp 36.8 C (98.2 F) | Resp 16 | Wt 66.2 kg (146 lb) | SpO2 100% | BMI 20.78 kg/m | BSA 1.81 m PHYSICAL EXAM: General: alert and no distress, frail, in wheelchair Head: Normocephalic, No masses, lesions, tenderness or abnormalities Heart: regular rate & rhythm, no murmur, and no gallops Lungs: chest symmetric with normal AP diameter, lungs clear to auscultation Back: nontender Extremities: no edema Skin: bruising ASSESSMENT/PLAN: Hospital discharge follow-up (Primary) - DISCH MED RECON CUR MED LIS - PULMONARY REFERRAL OP - ALCOHOL/CHEMICAL DEPENDENCY REFERRAL OP Alcohol use disorder - ALCOHOL/CHEMICAL DEPENDENCY REFERRAL OP Compression fracture of lumbar vertebra with routine healing, unspecified lumbar vertebral level, subsequent encounter - SPINE SURGERY REFERRAL OP Consider DEXA in near future. CVA, old, ataxia - PHYSICAL THERAPY REFERRAL OP - Atorvastatin Calcium 40 MG Oral Tablet (Lipitor); Take 1 Tablet by mouth in the morning. - Aspirin 81 MG Oral Tablet Delayed Release; Take 1 Tablet by mouth in the morning. Consider Zio/additional Cardiology work-up in the near future. And/or Neurology referral. Neurologic gait dysfunction - PHYSICAL THERAPY REFERRAL OP Abnormal chest CT - PULMONARY REFERRAL OP Lung mass - PULMONARY REFERRAL OP Special screening for malignant neoplasms, colon - COLOGUARD; Future; Expected date: 05/16/2023 Primary focus at this time needs to be on alcohol use disorder treatment - MAT referral initiated. FOLLOW-UP: Check-out note: Schedule with spine surgery. Schedule with Pulmonology. Schedule with MAT. Schedule PT. F/U here in 4-6 weeks. I spent a total of 30-39 minutes (exact time 35 mins) minutes on the date of service in preparation, delivery, and documentation of the care provided to Jevon Johnson excluding any time spent in performance of separately billed services. Adeel Douglas PA-C [address] [phone] documented in this encounter Nursing Notes * David Schroeder LPN - 05/16/2023 9:44 AM EST The patient has been properly identified by confirmation of name and date of . Chief Complaint [facility]. Hx of compression fx, old stroke,fluid on his lungs,alcohol abuse. Pt would like to stay within the [facility] for all testing. documented in this encounter Plan of Treatment Upcoming Encounters Date Type Department Care Team ([facility] Contact Info) Description 06/20/2023 8:00 AM EST Office Visit [address] [phone] Venita Davis MD [address] [place] [phone] 07/29/2023 11:20 AM EDT Office Visit Dermatology [address] [phone] Bennie Randall PA-C [address] [place] [phone] 09/30/2023 9:00 AM EDT Office Visit Pulmonary Medicine, [facility] [address] [facility] [place] [address] Derrick Hallman M, DO [address] [facility] [place] [address] 10/17/2023 8:00 AM EDT Office Visit Orthopaedics Spine Surgery, [facility] [address] [place] [address] Michael Hermosillo MD [address] [place] [address] Scheduled Orders Name Type Priority Associated Diagnoses Orde r Schedule COLOGUARD Lab Routine Special screening for malignant neoplasms, colon Expected: 05/16/2023, Expires: 05/16/2024 Scheduled Referrals Name Type Priority Associated Diagnoses Orde r Schedule PULMONARY REFERRAL OP Referral Within 10 days (routine) Hospital discharge follow-up Lung mass Abnormal chest CT Ordered: 05/16/2023 ALCOHOL/CHEMICAL DEPENDENCY REFERRAL OP Referral Within 10 days (routine) Hospital discharge follow-up Alcohol use disorder Ordered: 05/16/2023 SPINE SURGERY REFERRAL OP Referral Within 10 days (routine) Compression fracture of lumbar vertebra with routine healing, unspecified lumbar vertebral level, subsequent encounter Ordered: 05/16/2023 PHYSICAL THERAPY REFERRAL OP Referral Within 10 days (routine) Neurologic gait dysfunction CVA, old, ataxia Ordered: 05/16/2023 Health Maintenance Due Date Last Done Comments [...] Not on filedocumented as of this encounter Visit Diagnoses Diagnosis Hospital discharge follow-up- Primary Other follow-up examination Alcohol use disorder Compression fracture of lumbar vertebra with routine healing, unspecified lumbar vertebral level, subsequent encounter CVA, old, ataxia Ataxia, 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
--- OUTSIDE RECORDS SUMMARY | 2023-07-17 12:01 | External Medical Summary | Summary of Care ---
Author Name Unknown Organization [facility] Address [address] [place] [address] Phone [phone] Care Team Providers Care American History Professor Name Role Phone Carlos Alberto Covington PA-C Primary Care Provider + [phone] Reason for Visit * Reason Onset Date Comments Information 05/13/2023 AAA screening Encounter Details Date Type Department Care Team ([facility] st Contact Info) Description 05/13/[address] [phone] Carlos Alberto Covington PA-C [address] [place] [phone] Information (AAA screening ) Allergies No known active allergiesdocumented as of this encounter (statuses as of 05/19/2023) Medications Medication Sig Dispensed Refills Start Date End Date Status Daily-Maciej Multivitamin Oral Tablet Take 1 Tablet by mouth in the morning. 0 08/01/2022 Active Albuterol Sulfate HFA 108 (90 Base) MCG/ACT Inhalation Aerosol Solution INHALE TWO PUFFS BY MOUTH EVERY 4 HOURS NEEDED FOR SHORTNESS OF BREATH OR WHEEZING 18 g 4 09/11/2022 Active Lisinopril 10 MG Oral Tablet (Prinivil)Indicati [...] 04/18/2023 Active Folic Acid 1 MG Oral TabletIndications: Low folic acid Take 1 Tablet by mouth in the morning. 90 Tablet 3 04/24/2023 Active Mupirocin 2 % External Ointment (Bactroban) Apply to the face and scalp 2-3 times daily 30 g 2 04/29/2023 Active Cephalexin 500 MG Oral Capsule (Keflex) Take 1 Capsule by mouth in the morning and 1 Capsule at noon and 1 Capsule before bedtime. 30 Capsule 0 02/21/2023 4 Discontinued (Medication List Clean Up) Ketoconazole 2 % External Shampoo (Nizoral)Indicatio ns:Scalp irritation Apply topically to affected area every 3 days for 28 days. Shampoo twice a week 120 mL 1 04/18/2023 4 documented as of this encounter (statuses as of 05/19/2023) Active Problems Problem Noted Date Diagnosed Date [...] as of this encounter (statuses as of 05/19/2023) Resolved Problems Problem Noted Date Diagnosed Date Resolved Date Screening PSA (prostate specific antigen) 11/10/2018 11/10/2018 documented as of this encounter (statuses as of 05/19/2023) Immunizations Name Administration Dates Next Due COVID-19 mRNA, LNP-s, No Pre serve, 2-Dose Series (Pfizer) 02/26/2021,07/08/2020,06/17/2020 Pneumococcal Conjugate Vacci ne, 20-valent ([id number]) 09/11/2022 Seasonal Influenza, Trivalen t, Adjuvanted, 65+ [...] encounter Miscellaneous Notes * Telephone Encounter - Maxine Martel LPN - 05/19/2023 1:36 PM EST Through advanced analysis/trending of this patient's history, they have been identified to have a positive AAA flag and are at a higher risk for Abdominal aortic aneurysm. This advanced analysis estimates the patient's risk for AAA. It only indicates that the patient's chances to have this condition are higher compared to most people. It does not indicate that the patient has this condition, but it is highly recommended the patient have a AAA screening for further evaluation. I have contacted the patient regarding scheduling a AAA screening. Outcomes: AAA screening ordered and scheduled * Telephone Encounter - Maxine Martel LPN - 05/14/2023 2:15 PM EST I am calling to discuss some recommended testing. Our records indicate that you are due for a screening ultrasound of your aorta (this test checks for an enlargement of your aorta at the level of your abdomen). Have you had discussions with your provider about this?we've recently started evaluating your electronic health record to provide better screening and care for people at risk for disease of the aorta (the main artery that carries blood from your heart to the rest of your body). Based on your laboratory results and other clinical conditions, you may be at high risk for an abdominal aortic aneurysm (AAA, an enlargement of your lower aorta). This evaluation doesn't mean you have an AAA. It just means you should get screened at your earliest convenience by having an ultrasound. The screening results will tell your doctor if there's anything they need to examine more closely. Through advanced analysis/trending of this patient's history, they have been identified to have a positive AAA flag and are at a higher risk for Abdominal aortic aneurysm. This advanced analysis estimates the patient's risk for AAA. It only indicates that the patient's chances to have this condition are higher compared to most people. It does not indicate that the patient has this condition, but it is highly recommended the patient have a AAA screening for further evaluation. I have contacted the patient regarding scheduling a AAA screening. Outcomes: Left message * Telephone Encounter - Maxine Martel LPN - 05/13/2023 12:17 PM EST Through advanced analysis/trending of this patient's history, they have been identified to have a positive AAA flag and are at a higher risk for Abdominal aortic aneurysm. Pt will be contacted by [facility] nurse to discuss AAA screening. documented in this encounter Plan of Treatment Upcoming Encounters Date Type Department Care Team ([facility] st Contact Info) Description 05/27/2023 10:00 AM EST Imaging Radiology, [address] [phone] 06/20/2023 8:00 AM EST Office Visit [facility], [address] [phone] Venita Davis MD [address] [place] [phone] 07/29/2023 11:20 AM EDT Office Visit Dermatology [facility] [address] [place] [phone] Bennie Randall PA-C [address] [place] [address] 09/30/2023 9:00 AM EDT Office Visit Pulmonary Medicine, [facility] [address] [facility] [place] [address] Derrick Hallman, DO [address] [place] [address] 10/17/2023 8:00 AM EDT Office Visit Orthopaedics Spine Surgery, [facility] [address] [facility] [place] [address] Michael Hermosillo MD [address] [place] [address] Scheduled Orders Name Type Priority Associated Diagnoses Orde r Schedule US AAA SCREEN, RADIOLOGY Medical Imaging Routine Screening for AAA (abdominal aortic aneurysm) Expected: 05/19/2023, Expires: 05/19/2024 Health Maintenance Due Date Last Done Comments [...] as of this encounter Visit Diagnoses Diagnosis Screening for AAA (abdominal aortic aneurysm)- Primary Screening for other and unspecified cardiovascular conditions documented in this encounter Care Teams American History Professor Relationship Specialty Start Date End Date Carlos Alberto Covington PA-C [address] [place] [phone] PCP - General Physician Coat Room Attendant 11/19/22 documented as of this encounter
--- OUTSIDE RECORDS SUMMARY | 2023-07-17 12:01 | External Medical Summary ---
Author Name Unknown Address Unknown Organization R1WR:[facility] [address] [place] [address] Laboratory Report Ordering Provider Test Date Status KATHY HAGER 05/13/2023 04:43:00 Final Observation Date Value Abnormality Reference (Units ) Status WBC 05/13/2023 06:08 5.1 4.0-9.1 (X10E +09/L) Final RBC 05/13/2023 06:08 3.64 Below low normal 4.6-6. 1 (X10E+12/L) Final Hemoglobin 05/13/2023 06:08 12.9 Below low normal 13.4- 17.5 (g/dL) Final Hematocrit 05/13/2023 06:08 38.2 Below low normal 40-51 (%) Final MCV 05/13/2023 06:08 104.9 Above high normal 79-92 (fL) Final MCH 05/13/2023 06:08 35.4 Above high normal 26.0- 32.0 (pg) Final MCHC 05/13/2023 06:08 33.8 32-37 (g/dL) Final Platelets 05/13/2023 06:08 188 150-330 (X10E +09/L) Final RDW 05/13/2023 06:08 13.1 11.6-14.4 (%) Final Performing Location [facility] [address] [place] [address]
--- OUTSIDE RECORDS SUMMARY | 2023-07-17 12:02 | External Medical Summary ---
Author Name Unknown Address Unknown Organization R1WR:[facility] [address] [place] [address] Laboratory Report Ordering Provider Test Date Status DIAZLUCASELSI FARRELL 05/12/2023 07:07:00 Final Observation Date Value Abnormality Reference (Units ) Status Gamma GT 05/12/2023 08:54 41 <73 (U/L) Fin peace Performing Location [facility] [address] [place] [address]
--- OUTSIDE RECORDS SUMMARY | 2023-07-17 12:02 | External Medical Summary ---
Author Name Unknown Address Unknown Organization R1WR:[facility] [address] [place] [address] Laboratory Report Ordering Provider Test Date Status LUCAS PERALESARGELIA 05/12/2023 07:07:00 Final Observation Date Value Abnormality Reference (Units ) Status Hemoglobin A1C 05/12/2023 10:05 4.6 <5.7 (%) Final [place] Di[employer] n Guidelines: Decreased risk or non-diabetic: <5.7% Increased risk of diabetes: 5.7-6.4% Consistent with diabetes: >=6.5% General goal for treated diabetics: <7.0% Performing Location [facility] [address] [place] [address]
--- OUTSIDE RECORDS SUMMARY | 2023-07-17 12:02 | External Medical Summary ---
Author Name Unknown Address Unknown Organization R4LH:[facility] [address] [place] [address] Laboratory Report Ordering Provider Test Date Status SHAWNA SHAFFER 05/11/2023 13:20:00 Final Observation Date Value Abnormality Reference (Units ) Status Acetaminophen 05/11/2023 13:46 <10.0 Below low normal 10 -30 (ug/mL) Final Therapeutic Range: 10.0 to 2 0.0 ug/dL Potentially Toxic: >150.0 ug/dL at 4 Hrs post ingestion >40.0 ug/dL at 12 Hrs post ingestion Performing Location [facility] [address] [place] [address]
--- OUTSIDE RECORDS SUMMARY | 2023-07-17 12:02 | External Medical Summary ---
Author Name Unknown Address Unknown Organization R1WR:[facility] [address] [place] [facility] [place] [address] Laboratory Report Ordering Provider Test Date Status SHAWNA KELLEY 05/11/2023 15:20:00 Final Observation Date Value Abnormality Reference (Units) Status Specimen Description 05/11/2023 14:50 Blood LEFT ANTECUBITAL VEIN Final Special Requests 05/11/2023 14:50 None Final Culture 05/17/2023 07:05 No Growth 5 Days Final Report Status 05/17/2023 07:05 Final Result 05/17/2023 Final Performing Location [facility] [address] [place] [address]
--- OUTSIDE RECORDS SUMMARY | 2023-07-17 12:02 | External Medical Summary ---
Author Name Unknown Address Unknown Organization R1WR:[facility] [address] [place] [address] Laboratory Report Ordering Provider Test Date Status DIAZLUCAS MIRIAM MARYLILY 05/12/2023 07:07:00 Final Observation Date Value Abnormality Reference (Units ) Status Prothrombin Time 05/12/2023 07:54 11.6 Below low normal 11.9-14.5 (Sec) Final INR 05/12/2023 07:54 0.8 Fin al Performing Location [facility] [address] [place] [address]
--- OUTSIDE RECORDS SUMMARY | 2023-07-17 12:02 | External Medical Summary ---
Author Name Unknown Address Unknown Organization R1WR:[facility] [address] [place] [address] Laboratory Report Ordering Provider Test Date Status LUCAS PERALES 05/11/2023 21:29:00 Final Observation Date Value Abnormality Reference (Units ) Status Lactic Acid 05/11/2023 22:05 2.1 Above upper panic deras its 0.4-2.0 (mmol/L) Final BARNHARTLR CALLED CRITICAL R ESULTS AT [id number]. THE RESULTS WERE READ BACK AND VERIFIED BY: Faisal JESUS IN 6W Clinical correlation advised by the CMS Early Management Bundle for Severe Sepsis and Septic Shock guidelines. If the time between specimen collection and laboratory receipt is 30 minutes or greater, the lactate result may be falsely elevated. The laboratory recommends sample recollection and analysis. Performing Location [facility] [address] [place] [address]
--- OUTSIDE RECORDS SUMMARY | 2023-07-17 12:02 | External Medical Summary ---
Author Name Unknown Address Unknown Organization R4LH:[facility] [address] [place] [address] Laboratory Report Ordering Provider Test Date Status SHAWNA SHAFFER 05/11/2023 13:20:00 Final Observation Date Value Abnormality Reference (Units ) Status UA Culture Screen 05/11/2023 13:41 Negative screen. Culture not indicated. Final Urine Clarity 05/11/2023 13:41 Clear CLER Final Urine Color 05/11/2023 13:41 Yellow YELL Final Specific [place], Urine 05/11/2023 13:41 <=1.005 1.000-1.025 Final Urine pH 05/11/2023 13:41 6.0 5.0-8.0 Final Urine Leukocyte Esterase 05/11/2023 13:41 Negative NEGAT Final Urine Nitrites 05/11/2023 13:41 Negative NEGAT Final Protein, Urine 05/11/2023 13:41 Negative NEGAT (mg/dL) Final Glucose, Urine 05/11/2023 13:41 Negative NEGAT (mg/dL) Final Urine Ketones 05/11/2023 13:41 Negative NEGAT Final Urine Urobilinogen 05/11/2023 13:41 1.0 0.0-1.0 (mg/dL) Final Urine Bilirubin 05/11/2023 13:41 Negative NEGAT Final Blood, Urine 05/11/2023 13:41 Negative NEGAT Final Urine Source 05/11/2023 12:53 Clean Catch Urine Final Performing Location [facility] [address] [place] [address]
--- OUTSIDE RECORDS SUMMARY | 2023-07-17 12:02 | External Medical Summary ---
Author Name Unknown Address Unknown Organization R1WR:[facility] [address] [place] [address] Laboratory Report Ordering Provider Test Date Status DIAZLUCASELSI FARRELL 05/12/2023 07:07:00 Final Observation Date Value Abnormality Reference (Units ) Status Vitamin B12 05/12/2023 07:55 310 211-911 (pg /mL) Final Performing Location [facility] [address] [place] [address]
--- OUTSIDE RECORDS SUMMARY | 2023-07-17 12:02 | External Medical Summary ---
Author Name Unknown Address Unknown Organization R1WR:[facility] [address] [place] [address] Laboratory Report Ordering Provider Test Date Status LUCAS PERALES 05/11/2023 22:30:00 Final Observation Date Value Abnormality Reference (Units ) Status Amphetamine/Methamph, Urine 05/11/2023 23:06 Negative NEGAT Final (Cutoff limit : 1000 ng/mL) Barbiturates, Urine 05/11/2023 23:06 Negative NEG AT Final (Cutoff limit : 200 ng/mL) Benzodiazepine, Urine 05/11/2023 23:06 Negative N EGAT Final (Cutoff limit : 200 ng/mL) Cannabinoids, Urine 05/11/2023 23:06 Negative NEG AT Final (Cutoff limit: 100 ng/mL) Cocaine, Urine 05/11/2023 23:06 Negative NEGAT Final (Cutoff limit : 300 ng/mL) Opiates, Urine 05/11/2023 23:06 Negative NEGAT Final (Cutoff limit : 300 ng/mL) Methadone, Urine 05/11/2023 23:06 Negative NEGAT Final (Cutoff limit : 300 ng/mL) Oxycodone Qual Urine 05/11/2023 23:06 Negative NE GAT Final (Cutoff limit: 100 ng/mL) Buprenorphine, Urine 05/11/2023 23:06 Negative NE GAT Final Detection Limit = 5 ng/mL Fentanyl, Urine 05/11/2023 23:06 Negative NEGAT Final (Cutoff limit: 1 ng/mL) Note: 05/11/2023 18:20 Unconfirmed uri ne drug screen results are to be used for medical treatment only. Final Do not use for non medical p urposes. Confirmation of the urine screens are required to verify the presence or absence of the drug of abuse. A confirmation order is required. All urine specimens will be held for 5 days. Performing Location [facility] [address] [place] [address]
--- OUTSIDE RECORDS SUMMARY | 2023-07-17 12:02 | External Medical Summary ---
Author Name Unknown Address Unknown Organization R1WR:[facility] [address] [place] [address] Laboratory Report Ordering Provider Test Date Status DIAZLUCASLILY 05/12/2023 07:07:00 Final Observation Date Value Abnormality Reference (Units ) Status Folate 05/12/2023 07:55 23.3 >5.0 (ng/mL) Final Performing Location [facility] [address] [place] [address]
--- OUTSIDE RECORDS SUMMARY | 2023-07-17 12:02 | External Medical Summary ---
Author Name Unknown Address Unknown Organization R1WR:[facility] [address] [place] [address] Laboratory Report Ordering Provider Test Date Status LUCAS PERALES 05/12/2023 07:07:00 Final Observation Date Value Abnormality Reference (Units ) Status Vitamin C 05/23/2023 16:27 0.1 Below low normal Final Reference range: 0.2 to 2.1 Unit: mg/dL This test was developed and its analytical performance characteristics have been determined by [employer]. It has not been cleared or approved by the FDA. This assay has been validated pursuant to the CLIA regulations and is used for clinical purposes. Test performed at [facility] [address] [address] Director: ISHA FIELDS MD Performing Location [facility] [address] [place] [address]
--- OUTSIDE RECORDS SUMMARY | 2023-07-17 12:02 | External Medical Summary ---
Author Name Unknown Address Unknown Organization R4LH:[facility] [address] [place] [address] Laboratory Report Ordering Provider Test Date Status FIORELLA SHAFFERYOKASTA 05/11/2023 13:20:00 Final Observation Date Value Abnormality Reference (Units ) Status Prothrombin Time 05/11/2023 13:37 11.4 Below low normal 11.9-14.5 (Sec) Final INR 05/11/2023 13:37 0.9 Fin al Performing Location [facility] [address] [address]
--- OUTSIDE RECORDS SUMMARY | 2023-07-17 12:02 | External Medical Summary ---
Author Name Unknown Address Unknown Organization R1WR:[facility] [address] [place] [address] Laboratory Report Ordering Provider Test Date Status LUCAS PERALES 05/12/2023 07:07:00 Final Observation Date Value Abnormality Reference (Units ) Status Cholesterol 05/12/2023 08:54 185 <200 (mg/dL ) Final Age >19Y: Desireable <200 mg /dL Borderline High 200-239 mg/dL High >239 mg/dL Age 2-19Y: Acceptable <170 mg/dL Borderline High 170-199 mg/dL High >=200 mg/dL Triglyceride 05/12/2023 08:54 44 <150 (mg/d L) Final HDL 05/12/2023 08:54 113 (mg/dL) Fin al Age >19Y: <40 mg/dL: Low HDL -Cholesterol concentrations >= 60 mg/dL: Desirable HDL-Cholesterol concentrations Age 2-19Y: <40 mg/dL: Low HDL-Cholesterol concentrations >= 45 mg/dL: Desirable HDL-Cholesterol concentrations VLDL, Calculated 05/12/2023 08:54 9 <30 (m g/dL) Final LDL, Calculated 05/12/2023 08:54 63 <130 (m g/dL) Final Age <19Y: Optimal <100 mg/dL Near Optimal/Above Optimal 100-129 mg/dL Borderline Marco 130-159 mg/dL High 160-189 mg/dL Very High >189 mg/dL Age 2-19Y: Acceptable <110 mg/dL Borderline High 110-129 mg/dL High >=130 mg/dL Performing Location [facility] [address] [facility] [place] [address]
--- OUTSIDE RECORDS SUMMARY | 2023-07-17 12:02 | External Medical Summary ---
Author Name Unknown Address Unknown Organization R1WR:[facility] [address] [place] [address] Laboratory Report Ordering Provider Test Date Status LUCAS PERALESARGELIA 05/12/2023 07:07:00 Final Observation Date Value Abnormality Reference (Units ) Status Phosphorus 05/12/2023 08:54 3.7 2.4-5.1 (mg/ dL) Final Performing Location [facility] [address] [place] [address]
--- OUTSIDE RECORDS SUMMARY | 2023-07-17 12:02 | External Medical Summary ---
Author Name Unknown Address Unknown Organization R4LH:[facility] [address] [place] [address] Laboratory Report Ordering Provider Test Date Status KIETKISHOR RENETTAFIORELLAYOKASTA 05/11/2023 13:20:00 Final Observation Date Value Abnormality Reference (Units ) Status Salicylate 05/11/2023 13:46 <4 <30 (mg/dL) Final Performing Location [facility] [address] [place] [address]
--- OUTSIDE RECORDS SUMMARY | 2023-07-17 12:02 | External Medical Summary ---
Author Name Unknown Address Unknown Organization R4LH:[facility] [address] [place] [address] Laboratory Report Ordering Provider Test Date Status SHAWNA SHAFFER 05/11/2023 14:50:00 Final Observation Date Value Abnormality Reference (Units ) Status Lactic Acid 05/11/2023 15:56 2.9 Above upper panic deras its 0.4-1.9 (mmol/L) Final CRITICAL VALUE CALLED / READ BACK BY: DR. Lee, at ED 05/11/23 15:56 NL Performing Location [facility] [address] [place] [address]
--- OUTSIDE RECORDS SUMMARY | 2023-07-17 12:02 | External Medical Summary ---
Author Name Unknown Address Unknown Organization R1WR:[facility] [address] [place] [address] Laboratory Report Ordering Provider Test Date Status LUCAS PERALESARGELIA 05/12/2023 07:07:00 Final Observation Date Value Abnormality Reference (Units ) Status Magnesium 05/12/2023 08:54 1.6 1.6-2.6 (mg/d L) Final Performing Location [facility] [address] [place] [address]
--- OUTSIDE RECORDS SUMMARY | 2023-07-17 12:02 | External Medical Summary ---
Author Name Unknown Address Unknown Organization RRRR:[facility] Laboratory Report Ordering Provider Test Date Status SHAWNA SHAFFER 05/11/2023 13:20:00 Final Observation Date Value Abnormality Reference (Units ) Status High Sensitivity Troponin I 05/11/2023 14:08 5 <18 (ng/L) Final [employer] Access hs-Tro ponin I assay Performing Location [facility]
--- OUTSIDE RECORDS SUMMARY | 2023-07-17 12:02 | External Medical Summary ---
Author Name Unknown Address Unknown Organization R1WR:[facility] [address] [place] [address] Laboratory Report Ordering Provider Test Date Status LUCAS PERALES 05/12/2023 07:07:00 Final Observation Date Value Abnormality Reference (Units ) Status Ammonia 05/12/2023 08:23 13 9-33 (umol/L) Final If the time between specimen collection and laboratory receipt is 30 minutes or greater, the ammonia result may be falsely elevated. The laboratory recommends sample recollection and analysis. Performing Location [facility] [address] [place] [address]
--- OUTSIDE RECORDS SUMMARY | 2023-07-17 12:02 | External Medical Summary ---
Author Name Unknown Address Unknown Organization R4LH:[facility] [address] [place] [address] Laboratory Report Ordering Provider Test Date Status SHAWNA SHAFFER 05/11/2023 13:20:00 Final Observation Date Value Abnormality Reference (Units ) Status Amphetamine/Methamph, Urine 05/11/2023 13:40 Negative Normal NEGAT Final Barbiturates, Urine 05/11/2023 13:40 Negative Normal NEG AT Final Benzodiazepine, Urine 05/11/2023 13:40 Negative Normal N EGAT Final Cocaine, Urine 05/11/2023 13:40 Negative Normal NEGAT Final Methadone, Urine 05/11/2023 13:40 Negative Normal NEGAT Final Opiates, Urine 05/11/2023 13:40 Negative Normal NEGAT Final Oxycodone Qual Urine 05/11/2023 13:40 Negative Normal NE GAT Final Phencyclidine, Urine 05/11/2023 13:40 Negative Normal NE GAT Final Cannabinoids, Urine 05/11/2023 13:40 Negative Normal NEG AT Final Tricyclics, Urine 05/11/2023 13:40 Negative Normal NEGAT Final MDMA, Urine 05/11/2023 13:40 Negative Normal NEGAT F inal Methamphetamines, Urine 05/11/2023 13:40 Negative Normal NEGAT Final Performing Location [facility] [address] [place] [address]
--- OUTSIDE RECORDS SUMMARY | 2023-07-17 12:02 | External Medical Summary ---
Author Name Unknown Address Unknown Organization R4LH:[facility] [address] [place] [address] Laboratory Report Ordering Provider Test Date Status FIORELLA SHAFFERYOKASTA 05/11/2023 13:20:00 Final Observation Date Value Abnormality Reference (Units ) Status Magnesium 05/11/2023 13:46 1.9 1.7-2.8 (mg/d L) Final Performing Location [facility] [address] [place] [address]
--- OUTSIDE RECORDS SUMMARY | 2023-07-17 12:02 | External Medical Summary ---
Author Name Unknown Address Unknown Organization RRRR:[facility] Laboratory Report Ordering Provider Test Date Status SHAWNA SHAFFER 05/11/2023 13:20:00 Final Observation Date Value Abnormality Reference (Units ) Status B-Type Natriuretic Peptide 05/11/2023 14:08 37 <100 (pg/mL) Final Less than 100 pg/mL: heart f ailure is improbable. Greater than 100 pg/mL; heart failure is increasingly probable. At levels greater than 500 pg/mL; heart failure is the most likely diagnosis. BNP results should always be interpreted in the context of other clinical information, especially in the range between 100 and 500 pg/mL. *NEJM 350, No.7; [phone]; 06/23/03 Performing Location [facility]
--- OUTSIDE RECORDS SUMMARY | 2023-07-17 12:02 | External Medical Summary ---
Author Name Unknown Address Unknown Organization R1WR:[facility] [address] [place] [address] Laboratory Report Ordering Provider Test Date Status LUCAS PERALES 05/12/2023 07:07:00 Final Observation Date Value Abnormality Reference (Units ) Status Vitamin B1 Whole Blood 05/18/2023 06:57 97 Final Reference range: 78 to 185 U nit: nmol/L Vitamin supplementation within 24 hours prior to blood draw may affect the accuracy of the results. This test was developed and its analytical performance characteristics have been determined by [employer] [place]. It has not been cleared or approved by the U.S. Food and Drug Administration. This assay has been validated pursuant to the CLIA regulations and is used for clinical purposes. Test performed at [facility] Director: MOIRA MURDOCK MD,PHD Performing Location [facility] [address] [place] [address]
--- OUTSIDE RECORDS SUMMARY | 2023-07-17 12:02 | External Medical Summary ---
Author Name Unknown Address Unknown Organization R1WR:[facility] [address] [place] [facility] [place] [address] Laboratory Report Ordering Provider Test Date Status SHAWNA KELLEY 05/11/2023 15:25:00 Final Observation Date Value Abnormality Reference (Units) Status Specimen Description 05/11/2023 14:50 Blood RIGHT ANTECUBITAL VEIN Final Special Requests 05/11/2023 14:50 None Final Culture 05/17/2023 07:05 No Growth 5 Days Final Report Status 05/17/2023 07:05 Final Result 05/17/2023 Final Performing Location [facility] [address] [place] [address]
--- OUTSIDE RECORDS SUMMARY | 2023-07-17 12:02 | External Medical Summary ---
Author Name Unknown Address Unknown Organization R4LH:[facility] [address] [place] [address] Laboratory Report Ordering Provider Test Date Status SHAWNA SHAFFER 05/11/2023 13:20:00 Final Observation Date Value Abnormality Reference (Units ) Status RBC Morphology 05/11/2023 14:19 1+ Final Anisocytosis 2+ Macrocytes 2 + Rouleaux Performing Location [facility] [address] [place] [address]
--- OUTSIDE RECORDS SUMMARY | 2023-07-17 12:02 | External Medical Summary ---
Author Name Unknown Address Unknown Organization R4LH:[facility] [address] [place] [address] Laboratory Report Ordering Provider Test Date Status SHAWNA SHAFFER 05/11/2023 13:20:00 Final Observation Date Value Abnormality Reference (Units ) Status Alcohol, Medical 05/11/2023 13:46 303 Above upper panic limits (mg/dL) Final This ethyl alcohol result is for medical purposes only. CRITICAL VALUE CALLED / READ BACK BY: DR MATOS ER 05/11/23 1346 MW Performing Location [facility] [address] [place] [address]
--- OUTSIDE RECORDS SUMMARY | 2023-07-17 12:02 | External Medical Summary ---
Author Name Unknown Address Unknown Organization R1WR:[facility] [address] [place] [address] Laboratory Report Ordering Provider Test Date Status LUCAS PERALES 05/12/2023 07:07:00 Final Observation Date Value Abnormality Reference (Units ) Status Glucose 05/12/2023 08:54 96 70-99 (mg/dL) Final The reference interval for F asting glucose is 70 to 99. The reference interval for Random Glucose is 70 to 139. BUN 05/12/2023 08:54 10 9-23 (mg/dL) Final Creatinine 05/12/2023 08:54 0.62 Below low normal 0.70- 1.30 (mg/dL) Final eGFR 05/12/2023 08:54 105 >59 (mL/min/1 .73m2) Final eGFR = 142 X [min(Scr/k,1)]* *a [max(Scr/k,1)-1.200x0.9938age X 1.012 [if female] Where Scr is serum creatinine; k is 0.7 for females and 0.9 males; a is -0.241 for females and -0.302 for males; min indicates the minimum of Scr/k or 1, max indicates the maximum of Scr/k or 1 Sodium 05/12/2023 08:54 139 136-145 (mmol /L) Final Potassium 05/12/2023 08:54 3.8 3.4-5.0 (mmol /L) Final Chloride 05/12/2023 08:54 107 98-112 (mmol/ L) Final CO2 05/12/2023 08:54 23 20-31 (mmol/L ) Final Anion Gap 05/12/2023 08:54 13 7-15 (mmol/L) Final Calcium 05/12/2023 08:54 8.9 8.3-10.6 (mg/ dL) Final Total Protein 05/12/2023 08:54 6.4 5.7-8.2 ( g/dL) Final Albumin 05/12/2023 08:54 3.4 3.4-5.0 (g/dL ) Final Bilirubin, Total 05/12/2023 08:54 1.2 Above high jesse l 0.0-0.8 (mg/dL) Final AST 05/12/2023 08:54 42 Above high normal 13-40 (U/L) Final ALT 05/12/2023 08:54 29 7-40 (U/L) Fi nal Alkaline Phosphatase 05/12/2023 08:54 63 46 -116 (U/L) Final Performing Location [facility] [address] [place] [address]
--- OUTSIDE RECORDS SUMMARY | 2023-07-17 12:02 | External Medical Summary ---
Author Name Unknown Address Unknown Organization R4H:[facility] [address] [place] [address] Laboratory Report Ordering Provider Test Date Status SHAWNA SHAFFER 05/11/2023 13:20:00 Final Observation Date Value Abnormality Reference (Units ) Status WBC 05/11/2023 13:34 6.3 4.0-9.1 (X10E +09/L) Final PERIPHERAL SMEAR REVIEWED RBC 05/11/2023 13:34 3.98 Below low normal 4.6-6.1 (X10E+12/L) Final Hemoglobin 05/11/2023 13:34 14.3 13.4-17.5 (g /dL) Final Hematocrit 05/11/2023 13:34 42.4 40-51 (%) Fi nal MCV 05/11/2023 13:34 106.7 Above high normal 79-92 (fL) Final MCH 05/11/2023 13:34 35.8 Above high normal 26.0-32.0 (pg) Final MCHC 05/11/2023 13:34 33.6 32-37 (g/dL) Final Platelets 05/11/2023 13:34 232 150-330 (X10E +09/L) Final RDW 05/11/2023 13:34 14.2 11.6-14.4 (%) Final Neutrophils 05/11/2023 13:34 60.0 34.0-67.9 ( %) Final Lymphocytes 05/11/2023 13:34 21.0 Below low normal 21.8-53.1 (%) Final Monocytes 05/11/2023 13:34 9.5 5.3-12.2 (%) Final Eosinophils 05/11/2023 13:34 8.1 Above high normal 0.8-7.0 (%) Final Basophils 05/11/2023 13:34 1.4 Above high normal 0.1-1.2 (%) Final Absolute Neutrophils 05/11/2023 13:34 3.80 1. 8-5.4 (X10E+09/L) Final Absolute Lymphocytes 05/11/2023 13:34 1.30 1. 3-3.6 (X10E+09/L) Final Absolute Monocytes 05/11/2023 13:34 0.60 0.3- 0.8 (X10E+09/L) Final Absolute Eosinophils 05/11/2023 13:34 0.50 0. 0-0.5 (X10E+09/L) Final Absolute Basophils 05/11/2023 13:34 0.10 0.0- 0.1 (X10E+09/L) Final Performing Location [facility] [address] [place], [place] [address]
--- OUTSIDE RECORDS SUMMARY | 2023-07-17 12:02 | External Medical Summary ---
Author Name Unknown Address Unknown Organization R1WR:[facility] [address] [place] [address] Laboratory Report Ordering Provider Test Date Status LUCAS PERALESARGELIA 05/12/2023 07:07:00 Final Observation Date Value Abnormality Reference (Units ) Status Mitochondrial M2 Ab (IgG) 05/19/2023 23:27 <20.0 Final Reference range: SEE COMMENT Unit: U Reference Range: NEGATIVE: < OR = 20.0 EQUIVOCAL: 20.1-24.9 POSITIVE: > OR = 25.0 Test performed at [facility] [address] [place] [address] Director: SHAWNA ALICEA MD,PHD,ANDREA Performing Location [facility] [address] [place] [id number]
--- OUTSIDE RECORDS SUMMARY | 2023-07-17 12:02 | External Medical Summary ---
Author Name Unknown Address Unknown Organization R4H:[facility] [address] [place] [address] Laboratory Report Ordering Provider Test Date Status SHAWNA SHAFFER 05/11/2023 13:20:00 Final Observation Date Value Abnormality Reference (Units ) Status Glucose 05/11/2023 13:46 97 70-99 (mg/dL) Final BUN 05/11/2023 13:46 9 7-18 (mg/dL) Final Creatinine 05/11/2023 13:46 0.51 Below low normal 0.60- 1.30 (mg/dL) Final eGFR 05/11/2023 13:46 111 >59 (mL/min/1 .73m2) Final eGFR = 142 X [min(Scr/k,1)]* *a [max(Scr/k,1)-1.200x0.9938age X 1.012 [if female] Where Scr is serum creatinine; k is 0.7 for females and 0.9 males; a is -0.241 for females and -0.302 for males; min indicates the minimum of Scr/k or 1, max indicates the maximum of Scr/k or 1 Sodium 05/11/2023 13:46 138 136-145 (mmol /L) Final Potassium 05/11/2023 13:46 3.8 3.6-5.0 (mmol /L) Final Chloride 05/11/2023 13:46 103 101-111 (mmol /L) Final CO2 05/11/2023 13:46 22 21-31 (mmol/L ) Final Anion Gap 05/11/2023 13:46 17 Above high normal 6-16 (mmol/L) Final Calcium 05/11/2023 13:46 8.7 8.4-10.5 (mg/ dL) Final Total Protein 05/11/2023 13:46 6.8 6.0-8.3 ( g/dL) Final Albumin 05/11/2023 13:46 3.7 3.2-5.5 (g/dL ) Final Bilirubin, Total 05/11/2023 13:46 0.8 0.2-1. 0 (mg/dL) Final AST 05/11/2023 13:46 53 Above high normal 10-42 (U/L) Final ALT 05/11/2023 13:46 30 10-60 (U/L) F inal Alkaline Phosphatase 05/11/2023 13:46 56 42 -121 (U/L) Final Performing Location [facility] [address] [place] [address]
--- OUTSIDE RECORDS SUMMARY | 2023-07-17 12:02 | External Medical Summary ---
Author Name Unknown Address Unknown Organization R1WR[facility] [address] [place] [address] Laboratory Report Ordering Provider Test Date Status DIAZLUCAS MIRIAM MARYLILY 05/12/2023 07:07:00 Final Observation Date Value Abnormality Reference (Units ) Status Alcohol, Medical 05/12/2023 08:54 <10 <10 (m g/dL) Final No detectable amount Performing Location [facility] [address] [place] [address]
--- OUTSIDE RECORDS SUMMARY | 2023-07-17 12:02 | External Medical Summary ---
Author Name Unknown Address Unknown Organization R1WR:[facility] [address] [place] [address] Laboratory Report Ordering Provider Test Date Status LUCAS PERALES 05/12/2023 07:07:00 Final Observation Date Value Abnormality Reference (Units ) Status WBC 05/12/2023 07:43 5.2 4.0-9.1 (X10E+09/L) Final RBC 05/12/2023 07:43 3.75 Below low normal 4.6-6.1 (X10E+12/L) Final Hemoglobin 05/12/2023 07:43 13.2 Below low normal 13.4-17.5 (g/dL) Final Hematocrit 05/12/2023 07:43 39.0 Below low normal 40-51 (%) Final MCV 05/12/2023 07:43 104.0 Above high normal 79-92 (fL) Final MCH 05/12/2023 07:43 35.2 Above high normal 26.0-32.0 (pg) Final MCHC 05/12/2023 07:43 33.8 32-37 (g/dL) Final Platelets 05/12/2023 07:43 215 150-330 (X10E+09/L) Final RDW 05/12/2023 07:43 13.2 11.6-14.4 (%) Final Neutrophils 05/12/2023 07:43 61.1 34.0-67.9 (%) Final Lymphocytes 05/12/2023 07:43 17.8 Below low normal 21.8-53.1 (%) Final Monocytes 05/12/2023 07:43 11.3 5.3-12.2 (%) Final Eosinophils 05/12/2023 07:43 8.8 Above high normal 0.8-7.0 (%) Final Basophils 05/12/2023 07:43 1.0 0.1-1.2 (%) Final Absolute Neutrophils 05/12/2023 07:43 3.19 1.6-6.1 (X10E+09/L) Final Absolute Lymphocytes 05/12/2023 07:43 0.93 Below low normal 1.3-3.6 (X10E+09/L) Final Absolute Monocytes 05/12/2023 07:43 0.59 0.3-0.8 (X10E+09/L) Final Absolute Eosinophils 05/12/2023 07:43 0.46 0.0-0.5 (X10E+09/L) Final Absolute Basophils 05/12/2023 07:43 0.05 0.0-0.1 (X10E+09/L) Final Absolute NRBC 05/12/2023 07:43 0.00 0 (X10E+09/L) Final Nucleated RBC 05/12/2023 07:43 0.0 0.0-0.2 (/100 WBC) Final Performing Location [facility] [address] [place] [address]
--- OUTSIDE RECORDS SUMMARY | 2023-07-17 12:02 | External Medical Summary ---
Author Name Unknown Address Unknown Organization R1WR:[facility] [address] [place] [address] Laboratory Report Ordering Provider Test Date Status DIAZLUCASLILY 05/12/2023 07:07:00 Final Observation Date Value Abnormality Reference (Units ) Status aPTT 05/12/2023 07:54 27.0 22.6-34.3 (SE C) Final Performing Location [facility] [address] [place] [address]
--- OUTSIDE RECORDS SUMMARY | 2023-07-17 12:02 | External Medical Summary ---
Author Name Unknown Address Unknown Organization R1WR:[facility] [address] [place] [address] Laboratory Report Ordering Provider Test Date Status LUCAS PERALESARGELIA 05/12/2023 07:07:00 Final Observation Date Value Abnormality Reference (Units ) Status TSH 05/12/2023 07:55 2.10 0.550-4.780 ( uIU/mL) Final Performing Location [facility] [address] [place] [address]
--- OUTSIDE RECORDS SUMMARY | 2023-07-17 12:03 | External Medical Summary | Summary of Care ---
Author Name Unknown Organization [facility] Address [address] [place] [address] Phone [phone] Care Team Providers Care Coffee Maker Servicer Name Role Phone Gillian Das PA-C Primary Care Provider + [phone] Reason for Visit * Reason Comments NEW PATIENT New pt. Here for hudson h on head and back. First noticed over summertime, went away, and is now back again. Rash is very itchy and bleeds at times. Pt isn't using anything to treat at this time. * Evaluate & Treat - Unlimited Visits (Within 10 days (routine)) - Authorized Specialty Diagnoses / Procedures Referred By Sampson yepez Referred To Contact Dermatology Diagnoses Rash and nonspecific skin eruption Scalp irritation Aracelis Douglas PA-C [address] [place] [phone] Referral ID Status Reason Start Date Expiration Date Visits Requested Visits Authorized [id number] Authorized Specialty Services Required 04/18/2023 999 999 Encounter Details Date Type Department Care Team ([facility] Contact Info) Description 04/29/2023 3:20 PM EST Office Visit Dermatology [address] [phone] Bennie Randall PA-C [address] [place] [phone] Multiple excoriations*; Acne necrotica Allergies No known active allergiesdocumented as of this encounter (statuses as of 04/30/2023) Medications Medication Sig Dispensed Refills Start Date [...] as of this encounter (statuses as of 04/30/2023) Active Problems Problem Noted Date Diagnosed Date [...] as of this encounter (statuses as of 04/30/2023) Resolved Problems Problem Noted Date Diagnosed Date Resolved Date Screening PSA (prostate specific antigen) 11/10/2018 11/10/2018 documented as of this encounter (statuses as of 04/30/2023) Immunizations Name Administration Dates Next Due COVID-19 mRNA, LNP-s, No Pre serve, 2-Dose Series (Pfizer) 02/26/2021,07/08/2020,06/17/2020 Pneumococcal Conjugate Vacci ne, 20-valent ([id number]) 09/11/2022 Seasonal Influenza, Trivalen t, Adjuvanted, 65+ [...] as of this encounter Progress Notes * Matt Morgan MD - 04/30/2023 9:02 AM EST I have seen and examined via teledermatology review of chart note and photos the patient with Bennie Randall PA-C. I have reviewed and agree with the assessment and plan. Matt Morgan MD * Bennie Randall PA-C - 04/29/2023 3:45 PM EST SUBJECTIVE: HPI: Jevon Johnson is a 68 year old male seen at the request of Aracelis Douglas PA-C for evaluation and treatment of a rash on the scalp/face. Patient notes he has been very itchy on his scalp and face for since the summer. He was seen by primary care and treated with OTC dandruff shampoo, Ketoconazole, Clobetasol and Claritin. Denies new or changing personal care products or oral medications REVIEW OF SYSTEMS: Personal hx of Skin Cancer: None SKIN: No other new or changing moles. HEME/LYMPH: No new or enlarging lumps or bumps. CONSTITUTIONAL: No nausea, vomiting, fevers, chills, diarrhea. No recent unintended weight loss, night sweats, appetite or malaise. 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 54 g 1 Cephalexin 500 MG Oral Capsule (Keflex) Take 1 Capsule by mouth in the morning and 1 Capsule at noon and 1 Capsule before bedtime. 30 Capsule 0 Clobetasol Propionate 0.05 % External Solution APPLY TO AFFECTED AREA DAILY NEEDED FOR SCALP IRRITATION 50 mL 1 Ketoconazole 2 % External Shampoo (Nizoral) Apply topically to affected area every 3 days for 28 days. Shampoo twice a week 120 mL 1 Mupirocin 2 % External Ointment (Bactroban) Apply to the face and scalp 2-3 times daily 30 g 2 Sertraline HCl 25 MG Oral Tablet (Zoloft) Take 1 Tablet by mouth in the morning. (Patient not taking: Reported on 04/29/2023) 90 Tablet 3 Loratadine 10 MG Oral Tablet (Claritin) Take 1 Tablet by mouth in the morning. (Patient not taking:Reported on 04/29/2023) 30 Tablet 11 Folic Acid 1 MG Oral Tablet Take 1 Tablet by mouth in the morning. (Patient not taking: Reported on04/29/2023) 90 Tablet 3 No current facility-administered medications for this visit. ALLERG Y: Patient has no known allergies. OBJECT LUISA: GEN: Healthy, alert, no distress, appears oriented, pleasant, and cooperative. SKIN: Detailed exam of hair, face including lids and lips, neck, and palpation of scalp completed and are normal except: A. Scalp/face/neck/upper back with multiple pink excoriated papules. No primary dermatitis appreciated ASSESS MENT/PLAN: A. Multiple secondary excoriations- no primary dermatitis. 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 No pustules present on exam -bacterial culture obtained from the scalp. Recommended he continue with use of ketoconazole shampoo and will add Bactroban ointment 3 times daily. Will adjust treatment pending results. Do not pick rub or scratch Follow-up: 3 months or sooner PRN Patient alone today. Photo(s) taken, pt verbally consented to having photo(s) taken. Contact patient via cell phone Ok to leave results on message: Yes Patient Phone Numbers Photos/chart reviewed by Dr. Matt Morgan. Presum ed diagnoses, expected natural histories, and management options discussed with the patient at length. Questions were addressed and anticipatory guidance provided. They were instructed to contact me if additional questions, concerns, or problems develop in the interim. -There were no barriers to learning and no other pain was related to today's visit. The patient and/or person accompanying patient demonstrates understanding of the visit and treatment. Cristina Randall PA-C 04/29/2023 3:45 PM Ref: ARACELIS DOUGLAS[[id number]] [address] [place] [phone] (office) [phone] (fax) PCP: GILLIAN DAS [address] [place] [phone] documented in this encounter Nursing Notes * Bobbi Wisdom LPN - 04/29/2023 3:09 PM EST Patient identified by full name and date of Chief Complaint Patient presents with NEW PATIENT New pt. Here for rash on head and back. First noticed over summertime, went away, and is now back again. Rash is very itchy and bleeds at times. Pt isn't using anything to treat at this time. documented in this encounter Plan of Treatment Upcoming Encounters Date Type Department Care Team ([facility] st Contact Info) Description 07/29/2023 11:20 AM EDT Office Visit Dermatology [address] [phone] Bennie Randall PA-C [address] [place] [phone] Pending Results Name Type Priority Associated Diagnoses Date /Time CULTURE, WOUND, SUPERFICIAL, AEROBIC Lab Routine Multiple excoriations 04/29/2023 3:40 PM EST Scheduled Orders Name Type Priority Associated Diagnoses Orde r Schedule CULTURE, WOUND, SUPERFICIAL, AEROBIC Lab Routine Multiple excoriations Expected: 04/29/2023, Expires: 04/29/2024 Health Maintenance Due Date Last Done Comments [...] Additional history exists Lipid Panel 04/18/2028 04/18/2023, 1009/2020, 08/15/2020, Additional history exists DTaP,Tdap,and Td Vaccines [...] Not on filedocumented as of this encounter Procedures Procedure Name Priority Date/Time Associated Diagnosis Comments DERM IMAGE (SITE) Routine 04/29/2023 Multiple excoriations documented in this encounter Results * DERM IMAGE (SITE) (04/29/2023) 04/29/2023 Bennie Randall PA-C DIGITAL PHOTOGRAPHY documented in this encounter Visit Diagnoses Diagnosis Multiple excoriations- Primary Other and unspecified superficial injury of other, multiple, and unspecified sites, without mention of infection Acne necrotica Acne varioliformis documented in this encounter Care Teams Coffee Maker Servicer Relationship Specialty Start Date End Date Gillian Das PA-C [address] [place] [phone] PCP - General Physician Workforce Development Assistant 11/19/22 documented as of this encounter
--- OUTSIDE RECORDS SUMMARY | 2023-07-17 12:03 | External Medical Summary | Summary of Care ---
Author Name Unknown Organization [facility] Address [address] [place] [address] Phone [phone] Care Team Providers Care Manufacturing Systems Engineer Name Role Phone Carlos Alberto Covington PA-C Primary Care Provider + [phone] Reason for Visit * Reason Comments Outpatient Testing Encounter Details Date Type Department Care Team (Latest Contact Info) Description 04/18/2023 10:20 AM [facility] Laboratory Laboratory Patient Service [address] [phone] [address] Thrombocytopenia (HCC); Hypokalemia; Mixed dyslipidemia; Syncope and collapse; Elevated glucose; B12 deficiency; Arthralgia, unspecified joint; Possible alcohol use disorder on screening for alcoholism; Easy bruising; Alcohol use disorder; Need for hepatitis C screening test Allergies No known active allergiesdocumented as of this encounter (statuses as of 04/18/2023) Medications Medication Sig Dispensed Refills Start Date [...] the morning. 30 Tablet 11 04/18/2023 Active Ketoconazole 2 % External Shampoo (Nizoral)Indication s:Scalp irritation Apply topically to affected area every 3 days for 28 days. 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 HTN, goal below 130/80 11/03/2018 Lumbar radiculopathy 11/03/2018 Lumbar degenerative disc disease 11/03/2018 documented as of this encounter (statuses as of 04/18/2023) Resolved Problems Problem Noted Date Diagnosed Date Resolved Date Screening PSA (prostate specific antigen) 11/10/2018 11/10/2018 documented as of this encounter (statuses as of 04/18/2023) Immunizations Name Administration Dates Next Due COVID-19 mRNA, LNP-s, No Pre serve, 2-Dose Series ([employer]) 02/26/2021,07/08/2020,06/17/2020 Pneumococcal Conjugate Vacci ne, 20-valent ([id number]) 09/11/2022 Seasonal Influenza, Trivalen t, Adjuvanted, 65+ [...] Upcoming Encounters Date Type Department Care Team ([facility] [address] Contact Info) Description 04/29/2023 3:20 PM EST Office Visit Dermatology [address] [phone] Bennie Randall PA-C [address] [place] [address] 05/13/2023 10:00 AM EST Office Visit Family Practice [address] [phone] Jabari Paz PA-C [address] [place] [address] Pending Results Name Type Priority Associated Diagnoses Date /Time COMPREHENSIVE METABOLIC PANEL Lab Routine Hypokalemia 04/18/2023 10:07 AM EST LIPID PANEL WITH DIRECT LDL IF TG IS HIGH Lab Routine Mixed dyslipidemia 04/18/2023 10:07 AM EST TSH WITH FREE T4 IF INDICATED Lab Routine Syncope and collapse 04/18/2023 10:07 AM EST HEMOGLOBIN A1C Lab Routine Elevated glucose 04/18/2023 10:07 AM EST VITAMIN B12 Lab Routine B12 deficiency 04/18/2023 10:07 AM EST RHEUMATOID FACTOR Lab Routine Arthralgia, unspecified joint 04/18/2023 10:07 AM EST VITAMIN B1 (THIAMINE), BLOOD, LC/MS/MS Lab Routine Possible alcohol use disorder on screening for alcoholism 04/18/2023 10:07 AM EST CBC WITH WBC DIFFERENTIAL AND ANEMIA REFLEX WORKUP Lab Routine Easy bruising 04/18/2023 10:07 AM EST PT INR Lab Routine Easy bruising 04/18/2023 10:07 AM EST HEPATITIS C ANTIBODY SCREEN WITH PROGRESSION TO HEPATITIS C RNA QUANTITATIVE Lab Routine Need for hepatitis C screening test 04/18/2023 10:07 AM EST FOLIC ACID Lab Routine Alcohol use disorder 04/18/2023 10:07 AM EST ANEMIA CBC Lab Routine Easy bruising 04/18/2023 10:07 AM EST DIFFERENTIAL, AUTOMATED Lab Routine Easy bruising 04/18/2023 10:07 AM EST ANEMIA REFLEX CHEMISTRY HOLD Lab Routine Easy bruising 04/18/2023 10:07 AM EST HEPATITIS C ANTIBODY Lab Routine Need for hepatitis C screening test 04/18/2023 10:07 AM EST HEPATITIS C RNA ADD ON Lab Routine Need for hepatitis C screening test 04/18/2023 10:07 AM EST BILIRUBIN, DIRECT Lab Routine Alcohol use disorder 04/18/2023 10:07 AM EST APTT Lab Routine Easy bruising 04/18/2023 10:08 AM EST Health Maintenance Due Date Last Done Comments Albumin/Creatinine Ratio 12/31/1973 Hepatitis C Screening 12/31/1973 Cologuard 12/31/2000 Fecal Occult Blood Test 12/31/2000 Sigmoidoscopy 12/31/2000 Zoster Vaccines (1 of 2) 12/31/2005 Colonoscopy 03/29/2019 03/29/2009 Colorectal Cancer Screening 03/29/2019 AAA Screening 12/31/2020 COVID-19 Vaccine ( season) 2023 02/26/2021, 07/08/2020, 06/17/2020 Influenza Vaccine (FLU shot) (#1) 2023 02/26/2021 Depression, Most Recent Score >= 10 (will fire each visit until score < 10) 03/06/2023 03/05/2023 GFR 08/01/2023 07/31/2022, 10/09/2020, 02/08/2020, Additional history exists Lipid Panel 02/13/2026 02/13/2021, 04/0 10/2020, 02/08/2020, Additional history exists DTaP,Tdap,and Td Vaccines (2 [...] as of this encounter Visit Diagnoses Diagnosis Thrombocytopenia (HCC) Thrombocytopenia, unspecified Hypokalemia Hypopotassemia Mixed dyslipidemia Mixed hyperlipidemia Syncope and collapse Elevated glucose Other abnormal glucose B12 deficiency Other B-complex deficiencies Arthralgia, unspecified joint Possible alcohol use disorder on screening for alcoholism Screening for alcoholism Easy bruising Other symptoms involving skin and integumentary tissues Alcohol use disorder Need for hepatitis C screening test Special screening examination for other specified viral diseases documented in this encounter Care Teams Manufacturing Systems Engineer Relationship Specialty Start Date End Date Carlos Alberto Covington PA-C [address] [place] [address] [phone] PCP - General Physician Screen Door Maker 11/19/22 documented as of this encounter
--- OUTSIDE RECORDS SUMMARY | 2023-07-17 12:03 | External Medical Summary | Summary of Care ---
Author Name Unknown Organization [facility] Address [address] [place] [address] Phone [phone] Care Team Providers Care Cloth Hand Name Role Phone Carlos Alberto Covington PA-C Primary Care Provider + [phone] Reason for Visit * Reason Comments Outpatient Testing Encounter Details Date Type Department Care Team (Latest Contact Info) Description 04/18/2023 10:20 AM [facility] Laboratory Laboratory Patient Service [address] [phone] [address] Thrombocytopenia (HCC); Hypokalemia; Mixed dyslipidemia; Syncope and [...] mRNA, LNP-s, No Pre serve, 2-Dose Series ([employer]) 02/26/2021,07/08/2020,06/17/2020 Pneumococcal Conjugate Vacci ne, 20-valent ([id number]) 09/11/2022 Seasonal Influenza, Trivalen t, Adjuvanted, 65+ [...] Upcoming Encounters Date Type Department Care Team ([facility] Contact Info) Description 04/29/2023 3:20 PM EST Office Visit Dermatology [address] [phone] Bennie Randall PA-C [address] [place] [address] 05/13/2023 10:00 AM EST Office Visit Family Practice [address] [phone] Jabari Paz PA-C [address] [place] [phone] Pending Results Name Type Priority Associated Diagnoses [...] diseases documented in this encounter Care Teams Cloth Hand Relationship Specialty Start Date End Date Carlos Alberto Covington PA-C [address] [place] [address] [phone] PCP - General Physician Groundskeeper Porter 11/19/22 documented as of this encounter
--- OUTSIDE RECORDS SUMMARY | 2023-07-17 12:03 | External Medical Summary | Summary of Care ---
Author Name Unknown Organization [facility] Address [address] [place] [address] Phone [phone] Care Team Providers Care Life Coach Name Role Phone Carlos Alberto Covington PA-C Primary Care Provider + [phone] Encounter Details Date Type Department Care Team ([facility] Contact Info) Description 04/24/[address] [phone] Adeel Douglas PA-C [address] [place] [phone] Allergies No known active allergiesdocumented as of this encounter (statuses as of 04/24/2023) Medications Medication Sig Dispensed Refills Start Date [...] the morning. 90 Tablet 3 04/24/2023 Active documented as of this encounter (statuses as of 04/24/2023) Active Problems Problem Noted Date Diagnosed Date [...] as of this encounter (statuses as of 04/24/2023) Resolved Problems Problem Noted Date Diagnosed Date Resolved Date Screening PSA (prostate specific antigen) 11/10/2018 11/10/2018 documented as of this encounter (statuses as of 04/24/2023) Immunizations Name Administration Dates Next Due COVID-19 mRNA, LNP-s, No Pre serve, 2-Dose Series ([employer]) 02/26/2021,07/08/2020,06/17/2020 Pneumococcal Conjugate Vacci ne, 20-valent ([id number]) 09/11/2022 Seasonal Influenza, Trivalen t, Adjuvanted, 65+ [...] Upcoming Encounters Date Type Department Care Team ([facility] Contact Info) Description 04/29/2023 3:20 PM EST Office Visit Dermatology [address] [phone] Bennie Randall PA-C [address] [place] [address] 05/13/2023 10:00 AM EST Office Visit Family Practice [address] [phone] Jabari Paz PA-C [address] [place] [phone] Scheduled Orders Name Type Priority Associated Diagnoses Orde r Schedule CBC Lab Routine Low folic acid Expected: 07/23/2023, Expires: 04/23/2024 FOLIC ACID Lab Routine Low folic acid Expected: 07/23/2023, Expires: 04/23/2024 Health Maintenance Due Date Last Done Comments [...] as of this encounter Visit Diagnoses Diagnosis Low folic acid- Primary documented in this encounter Care Teams Life Coach Relationship Specialty Start Date End Date Carlos Alberto Covington PA-C [address] [place] [phone] PCP - General Physician Drafter Topographical 11/19/22 documented as of this encounter
--- OUTSIDE RECORDS SUMMARY | 2023-07-17 12:03 | External Medical Summary | Summary of Care ---
Author Name Unknown Organization [facility] Address [address] [place] [address] Phone [phone] Care Team Providers Care Data Warehouse Manager Name Role Phone Gillian Das PA-C Primary Care Provider + [phone] Reason for Visit * Reason Comments NEW [...] Rash and nonspecific skin eruption Scalp irritation Adeel Douglas PA-C [address] [place] [phone] Referral ID Status Reason Start Date Expiration Date Visits Requested Visits Authorized [id number] Authorized Specialty Services Required 04/18/2023 [id number] Encounter Details Date Type Department Care Team ([facility] Contact Info) Description 04/29/2023 3:20 PM EST Office Visit Dermatology [address] [phone] Bennie Randall PA-C [address] [place] [address] [phone] Multiple excoriations*; Acne necrotica Allergies No known active allergiesdocumented as of this encounter (statuses as of 04/29/2023) Medications Medication Sig Dispensed Refills Start Date [...] as of this encounter (statuses as of 04/29/2023) Active Problems Problem Noted Date Diagnosed Date [...] as of this encounter (statuses as of 04/29/2023) Resolved Problems Problem Noted Date Diagnosed Date Resolved Date Screening PSA (prostate specific antigen) 11/10/2018 11/10/2018 documented as of this encounter (statuses as of 04/29/2023) Immunizations Name Administration Dates Next Due COVID-19 mRNA, LNP-s, No Pre serve, 2-Dose Series ([employer]) 02/26/2021,07/08/2020,06/17/2020 Pneumococcal Conjugate Vacci ne, 20-valent ([id number]) 09/11/2022 Seasonal Influenza, Trivalen t, Adjuvanted, 65+ [...] as of this encounter Progress Notes * Bennie Randall PA-C - 04/29/2023 3:45 PM EST SUBJECTIVE: HPI: Jevon Johnson is a 68 year old male seen at the request of Adeel Douglas PA-C for evaluation and treatment of [...] Cristina Randall PA-C 04/29/2023 3:45 PM Ref: TANVIR DOUGLASSaira Aranda[[id number]] [address] [place] [phone] (office) [phone] (fax) PCP: GILLIAN DAS [address] [place] [address] [phone] documented in this encounter Nursing Notes * [...] Upcoming Encounters Date Type Department Care Team ([facility] Contact Info) Description 07/29/2023 11:20 AM EDT Office Visit Dermatology [address] [phone] Bennie Randall PA-C [address] [place] [phone] Pending Results Name Type Priority Associated Diagnoses [...] varioliformis documented in this encounter Care Teams Data Warehouse Manager Relationship Specialty Start Date End Date Gillian Das PA-C [address] [place] [address] [phone] PCP - General Physician Wool Batting Worker 11/19/22 documented as of this encounter
--- OUTSIDE RECORDS SUMMARY | 2023-07-17 12:03 | External Medical Summary | Summary of Care ---
Author Name Unknown Organization [facility] Address [address] [place] [address] Phone [phone] Care Team Providers Care Customer Account Representative Name Role Phone Carlos Alberto Covington PA-C Primary Care Provider [phone] Reason for Visit * Reason Onset Date Comments Med Request 01/17/2023 Encounter Details Date Type Department Care Team ([facility] st Contact Info) Description 01/17/[address] [phone] Carlos Alberto Covington PA-C [address] [place] [phone] Med Request Allergies No known active allergiesdocumented as of [...] 24 Active Lisinopril 10 MG Oral Tablet (Prinivil)Indicati ons:HTN, goal below 130/80 Take 1 Tablet by mouth in the morning. 90 Tablet 1 3 Active Ventolin HFA 108 (90 Base) MCG/ACT Inhalation Aerosol Solution Inhale 2 Puffs by mouth every 4 hours as needed for Shortness of Breath or Wheezing. 54 g 1 3 Active Zoster Vac Recomb Adjuvanted 50 MCG/0.5ML Intramuscular Suspension Reconstituted (Shingrix)Indicati ons:Need for vaccination for zoster Inject 0.5 mL into a large muscle now and repeat dose in 60 to 180 days 1 Each 0 3 03/05/20 23 Discontinued(Pat ient preference/disco ntinuation) Clobetasol Propionate 0.05 % External SolutionIndication s:Skin irritation Apply topically to affected area daily as needed (scalp irritation). 25 mL 1 3 04/18/20 23 Discontinued Cephalexin 500 MG Oral Capsule (Keflex) Take 1 Capsule by mouth in the morning and 1 Capsule at noon and 1 Capsule before bedtime. Do all this for 10 days. 30 Capsule 0 3 02/22/20 23 Discontinued(Ref ill) documented as of this encounter (statuses as [...] (Pfizer) 02/26/2021,07/08/2020,06/17/2020 Pneumococcal Conjugate Vacci ne, 20-valent ([id number]) 09/11/2022 Seasonal Influenza, Trivalen t, Adjuvanted, 65+ yrs 02/26/2021 TDAP (age 10 and older)(Boostrix) 04/25/2018 documented as of this encounter Social History Tobacco Use Types Packs/Day Years Used Date Smoking Tobacco: Every Day Cigarettes 1 Smokeless Tobacco: Never Alcohol Use Standard Drinks/Week Comments Yes 6 (1 standard drink = 0.6 oz pur e alcohol) glass of wine with dinner AUDIT-C Answer Date Recorded Frequency of Alcohol [...] Telephone Encounter - Kareen Carlson LPN - 01/23/2023 9:17 AM EDT Provider to address: n/a Reason for Call: Med Request Contact: Telephone Call Contact Type: Medication Outcome: Called and spoke with patient and he is aware prescription is aware and recommendations from Dr. Sawyer. Total Time including non face to face (minutes): 5 * Telephone Encounter - Aristides Brooks MD - 01/17/2023 6:05 PM EDT Noted. I will repeat cephalexin for another 10 days. Continue cream twice a day. If not improving, make appointment in person to be seen. Any provider can see him. * Telephone Encounter - Essence Flowers OSA - 01/17/2023 12:21 PM EDT 1. When were you seen for this problem? 12/30/2022 2. What provider did you see for this problem? Brigido 3. What medications are you presently taking? Pt doesn't remember the medication 4. What is it that is no better? Please refer to Call Details. documented in this encounter Plan of Treatment Upcoming Encounters Date Type Department Care Team ([facility] st Contact Info) Description 04/29/2023 3:20 PM EST Office Visit Dermatology [facility] [address] [place] [phone] Bennie Randall PA-C [address] [place] [address] 05/13/2023 10:00 AM EST Office Visit Family Practice [facility] [address] [place] [phone] Jabari Paz PA-C [address] [place] [address] Health Maintenance Due Date Last Done Comments [...] < 10) 03/06/2023 03/05/2023 GFR 08/01/2023 07/31/2022, 10/0 09/2020, 02/08/2020, Additional history exists Lipid Panel 02/13/2026 [...] filedocumented as of this encounter Care Teams Customer Account Representative Relationship Specialty Start Date End Date Carlos Alberto Covington PA-C [address] [place] [phone] PCP - General Physician Crossing Watchman 11/19/22 documented as of this encounter
--- OUTSIDE RECORDS SUMMARY | 2023-07-17 12:03 | External Medical Summary ---
Author Name Unknown Address Unknown Organization [id number]:[facility] [place] [address] [place] [id number] Laboratory Report Ordering Provider Test Date Status YECENIA RIVERA 04/29/2023 15:40:05 Final Light growth normal clyde
null Observation Date Value Abnormality Reference (Units ) Status Bacteria identified in Specimen by Culture 04/29/2023 15:40:05 Multiple species of aerobic bacteria present. No further workup routinely performed. Final Test: Culture, Wound, Superf icial, Aerobic
Specimen Source: Scalp
Specimen Type: Superficial Wound
Specimen Date: 04/29/2023 3:40 PM
Result Date: 05/03/2023 10:08 AM
Result Status: Final result
Resulting Lab: [facility]
[address]
[facility] [address]

CULTURE

Multiple species of aerobic bacteria present. No further workup routinely
performed.

Light growth normal clyde

null Performing Location [facility] - [address] [facility] [address]
--- OUTSIDE RECORDS SUMMARY | 2023-07-17 12:04 | External Medical Summary ---
Author Name Unknown Address Unknown Organization K01:[facility] - [address] [place] [address] Laboratory Report Ordering Provider Test Date Status JUDD HSU 04/18/2023 10:07:39 Final Observation Date Value Abnormality Reference (Units ) Status WBC, Total 04/18/2023 10:07:39 5.75 4.00-10.8 0 (K/uL) Final RBC 04/18/2023 10:07:39 4.28 4.50-5.25 (M/uL) Final Hemoglobin 04/18/2023 10:07:39 15.3 14.0-16.8 (g/dL) Final Anemia reflex testing trigge rs on a HGB < 12.0 for Females and HGB < 13.0 for Males in accordance with the WHO Anemia Guidelines
Anemia reflex testing triggers on a HGB < 12.0 for Females and HGB < 13.0 for Males in accordance with the WHO Anemia Guidelines HCT 04/18/2023 10:07:39 47.1 40.0-48.4 (%) Final MCV 04/18/2023 10:07:39 110.0 82.0-99.5 (fL) Final MCH 04/18/2023 10:07:39 35.7 27.0-34.0 (pg) Final MCHC 04/18/2023 10:07:39 32.5 32.0-36.0 (g/dL) Final RDW 04/18/2023 10:07:39 13.3 11.5-15.5 (%) Final Platelets 04/18/2023 10:07:39 306 140-400 (K /uL) Final MPV 04/18/2023 10:07:39 9.0 6.6-11.1 ( fL) Final Nucleated erythrocytes/100 leukocytes [Ratio] in Blood by Automated count 04/18/2023 10:07:39 0 <=0 (/100 WBCs) Fi nal Performing Location [facility]ATORY [facility] - [address] [place] [address]
--- OUTSIDE RECORDS SUMMARY | 2023-07-17 12:04 | External Medical Summary ---
Author Name Unknown Address Unknown Organization [id number]:[facility] [place] [address] [facility] [address] Laboratory Report Ordering Provider Test Date Status EKATERINA MOTA 04/18/2023 10:07:39 Final Observation Date Value Abnormality Reference (Units ) Status TSH 04/18/2023 10:07:39 1.24 0.27-4.20 (uIU/mL) Final Performing Location [facility] [address] [facility] [address]
--- OUTSIDE RECORDS SUMMARY | 2023-07-17 12:04 | External Medical Summary ---
Author Name Unknown Address Unknown Organization [id number][place] [place] [address] [facility] [address] Laboratory Report Ordering Provider Test Date Status EKATERINA MOTA 04/18/2023 10:07:39 Final Observation Date Value Abnormality Reference (Units ) Status Triglyceride 04/18/2023 10:07:39 97 <=174 ( mg/dL) Final Triglyceride Reference Range s (mg/dL):
<150 Acceptable
150-174 Borderline high
175-499 High
>=500 Very high Cholesterol 04/18/2023 10:07:39 244 Above high normal <200 (mg/dL) Final Total Cholesterol Reference Ranges (mg/dL):
<200 Desirable
200-239 Borderline high
>=240 High HDL 04/18/2023 10:07:39 138 >39 (mg/dL ) Final HDL Cholesterol Reference Ra nges (mg/dL):
>=60 High (Desirable)
<50 Low (Undesirable) For Females
<40 Low (Undesirable) For Males NON-HDL CHOLESTEROL 04/18/2023 10:07:39 106 <=159 (mg/dL) Final Non-HDL Cholesterol Referenc e Range (mg/dL):
<100 Target level for high risk ASCVD patient
<130 Optimal for general population
130-159 Near optimal for general population
160-189 Borderline High
190-219 High
>=220 Very High LDL, (calculated) 04/18/2023 10:07:39 87 <= 129 (mg/dL) Final LDL Cholesterol Reference Ra nges (mg/dL):
<70 Target level for high risk ASCVD patient
<100 Optimal for general population
100-129 Near optimal for general population
130-159 Borderline high
160-189 High
>=190 Very high Performing Location [facility] [place] [address] [place] [address]
--- OUTSIDE RECORDS SUMMARY | 2023-07-17 12:04 | External Medical Summary ---
Author Name Unknown Address Unknown Organization [id number]:[facility] [place] - [address] [place] [address] Laboratory Report Ordering Provider Test Date Status MARYJANE MOTAKORIN 04/18/2023 10:07:39 Final Observation Date Value Abnormality Reference (Units ) Status BUN 04/18/2023 10:07:39 12 6-20 (mg/dL) Final Creatinine 04/18/2023 10:07:39 0.6 0.6-1.2 (mg/dL) Final Glomerular filtration rate/1.73 sq M.predicted [Volume Rate/Area] in Serum, Plasma or Blood by Creatinine-based formula (CKD-EPI) 04/18/2023 10:07:39 >90 >=60 (mL/min) Final eGFR is calculated based on the CKD-EPI 2020 equation SODIUM 04/18/2023 10:07:39 134 Below low normal 135 -146 (mmol/L) Final Potassium 04/18/2023 10:07:39 4.4 3.5-5.1 (m mol/L) Final Cl 04/18/2023 10:07:39 95 Below low normal 98- 107 (mmol/L) Final CO2 04/18/2023 10:07:39 25 22-32 (mmo l/L) Final Anion gap 04/18/2023 10:07:39 14 7-15 (mmol /L) Final Glucose 04/18/2023 10:07:39 103 70-120 (mg /dL) Final Albumin 04/18/2023 10:07:39 4.9 3.8-5.0 (g /dL) Final AST (Aspartate aminotransferase) 04/18/2023 10:07:39 36 10-50 (U/L) Fin al Alk Phos 04/18/2023 10:07:39 80 35-130 (U/ L) Final Bilirubin, Total 04/18/2023 10:07:39 0.9 <=1 .2 (mg/dL) Final Calcium 04/18/2023 10:07:39 9.8 8.4-10.2 ( mg/dL) Final Protein 04/18/2023 10:07:39 7.5 6.0-8.3 (g /dL) Final ALT (Alanine aminotransferase) 04/18/2023 10:07:39 17 10-50 (U/L) Gurmeet hand Performing Location LAB[facility]ORY [facility] [place] - [address] [facility] [address]
--- OUTSIDE RECORDS SUMMARY | 2023-07-17 12:04 | External Medical Summary ---
Author Name Unknown Address Unknown Organization [id number]:LABORATORY [facility] [place] - [address] [facility] [address] Laboratory Report Ordering Provider Test Date Status EKATERINA MOTA 04/18/2023 10:07:39 Final Observation Date Value Abnormality Reference (Units ) Status HbA1C 04/18/2023 10:07:39 5.2 4.0-5.6 (% ) Final The use of HbA1c to monitor glycemic status is based on normal hemoglobin and HbA composition. This test should not be used in patients with abnormal hemoglobin that affects the half life of the red blood cell or the in vivo glycation rates. Glucose, estimated average 04/18/2023 10:07:39 103 <126 (mg/dL) Final Performing Location LABORATORY [facility] [place] - [address] [place] [address]
--- OUTSIDE RECORDS SUMMARY | 2023-07-17 12:04 | External Medical Summary ---
Author Name Unknown Address Unknown Organization K01:[facility] - [address] [place] [address] Laboratory Report Ordering Provider Test Date Status JUDD HSU 04/18/2023 10:07:39 Final Observation Date Value Abnormality Reference (Units ) Status Hep C Ab 04/18/2023 10:07:39 Negative Negative Final Further HCV quantitative sherwin ting not performed per protocol. Performing Location [facility]ATORY [facility] - [address] [place] [address]
--- OUTSIDE RECORDS SUMMARY | 2023-07-17 12:04 | External Medical Summary | Summary of Care ---
Author Name Unknown Organization [facility] Address [address] [place] [address] Phone [phone] Care Team Providers Care Farmworker Livestock Name Role Phone Carlos Alberto Covington PA-C Primary Care Provider + [phone] Reason for Referral * Evaluate & Treat - Unlimited Visits (Within 10 days (routine)) - Authorized Specialty Diagnoses / Procedures Referred By Sampson yepez Referred To Contact Dermatology Diagnoses Rash and nonspecific skin eruption Scalp irritation Adeel Douglas PA-C [address] [place] [phone] Referral ID Status Reason Start Date Expiration Date Visits Requested Visits Authorized [id number] Authorized Specialty Services Required 04/18/2023 999 999 Question Answer Referral Priority Within 10 days (routine) Where should this appointment be scheduled? [facility] Are you referring the patient for Mohs Surgery and have a current positive skin cancer biopsy result? No What is the reason for the patient referral? Rash/Skin Check/Eval of Lesion or Mole Reason for Visit * Reason Comments Acute Pt here for a rash, he has it on his head, and arms. Sx started about 6 weeks ago. It is very itchy. Encounter Details Date Type Department Care Team ([facility] Contact Info) Description 04/18/2023 9:20 AM EST Office Visit [address] [phone] Adeel Douglas PA-C [address] [place] [phone] Scalp irritation*; Pruritus; Rash and nonspecific skin eruption; Easy bruising; Alcohol use disorder; Risk and functional assessment; Need for hepatitis C screening test Allergies [...] the morning. 90 Tablet 3 04/01/2023 Active Loratadine 10 MG Oral Tablet (Claritin)Indicati ons:Rash and nonspecific skin eruption,Scalp irritation,Pruritu s Take 1 Tablet by mouth in the morning. 30 Tablet 11 04/18/2023 Active Ketoconazole 2 % External Shampoo (Nizoral)Indicatio ns:Scalp irritation Apply topically to affected area every 3 days for 28 days. Shampoo twice a week 120 mL 1 04/18/2023 4 Active Clobetasol Propionate 0.05 % External SolutionIndication s:Skin irritation Apply topically to affected area daily as needed (scalp irritation). 25 mL 1 12/30/2022 3 Discontinued documented as of this encounter (statuses as [...] (Pfizer) 02/26/2021,07/08/2020,06/17/2020 Pneumococcal Conjugate Vacci ne, 20-valent ([id number]) 09/11/2022 Seasonal Influenza, Trivalen t, Adjuvanted, 65+ [...] Sign Reading Time Taken Comments Blood Pressure 148/98 04/18/2023 9:25 AM EST Pulse 94 04/18/2023 9:25 AM EST Temperature 36.7 C (98 F) 04/18/2023 9:25 AM EST Respiratory Rate 20 04/18/2023 9:25 AM EST Oxygen Saturation 97% 04/18/2023 9:25 AM EST Inhaled Oxygen Concentration - - Weight 65.1 kg (143 lb 9.6 oz) 04/18/2023 9:25 A M EST Height - - Body Mass Index 20.44 03/05/2023 9:58 AM EDT documented in this encounter Patient Instructions * Patient Instructions* Essence Hunter, MED ASSIST - 04/18/2023 9:26 AM EST Patient Instructions - Fall Prevention (This education is for all patients over 65 regardless of symptoms) Remember to take your current medications as prescribed. In order to prevent falls, you are encouraged to: Exercise Utilize assistive/adaptive devices Avoid multifocal lenses when walking Avoid hazards in home Maintain a regular toileting schedule Any questions please contact our office. Preventing Falls in the Home (This education is for all patients over 65 regardless of symptoms) As you get older, falls are more likely. Thats because your reaction time slows. Your muscles and joints may also get stiffer, making them less flexible. Illness, medications, and vision changes can also affect your balance. A fall could leave you unable to live on your own. To make your home safer, follow these tips: Floors Put nonskid pads under area rugs Remove throw rugs Replace worn floor coverings Tack carpets firmly to each step on carpeted stairs. Put nonskid strips on the edges of uncarpeted stairs Keep floors and stairs free of clutter and cords Arrange furniture so there are clear pathways Clean up any spills right away Bathrooms Install grab bars in the tub or shower Apply nonskid strips or put a nonskid rubber mat in the tub or shower Sit on a bath chair to bathe Use bathmats with nonskid backing Lighting Keep a flashlight in each room Put a nightlight along the pathway between the bedroom and the bathroom [employer] Patient Education Copyright 2008 - 2010 [employer] except where otherwise noted Preventing Falls: Exercises to Improve Balance, Flexibility, Strength, and Staying Power (This education is for all patients over 65 regardless of symptoms) Certain types of exercises may help make you less likely to fall. Try the ones below. Or do other exercises that your healthcare provider suggests. Depending on your health, you may need to start slowly. Dont let that stop you. Even small amounts of exercise can help you. Be sure to talk to yourhealthcare provider before starting any exercise program. Improve Balance Many types of exercise can help improve balance. Deandre chi and yoga are good examples. Heres another one to try. You can do it anytime and almost anywhere. Stand next to a counter or solid support. Push yourself up onto your tiptoes. Hold for 5 seconds. If you start to lose your balance, hold on to the counter. Rest and repeat 5 times. Work up to holding for 20 to 30 seconds, if you can. Increase Flexibility Being more flexible makes it easier for you to move around safely. Try exercises like the seated hamstring stretch. Sit in a chair and put one foot on a stool. Straighten your leg and reach with both hands down either side of your leg. Reach as far down your leg as you can. Hold for about 20 seconds. Go back to the starting position. Then repeat 5 times. Switch legs. Build Strength Resistance exercises help build strength. You can do them without equipment. Or you can use weights, elastic bands, or special machines. One such exercise is called the biceps curl. You can hold a 1 pound weight or even a can of soup. Do this exercise at least 3 times a week. Strive for everyday. Sit up straight in a chair. Keep your elbow close to your body and your wrist straight. Bend your arm, moving your hand up to your shoulder. Then slowly lower your arm. Repeat 5 times. Switch to the other arm. Build Your Staying Power Aerobic exercises make your heart and lungs stronger so you can keep moving longer. Walking and swimming are two of the best types of exercises you can do. Using a stationary bike is great, too. Find an aerobic exercise that you enjoy. Start slowly and build up. Even 5 minutes is helpful. Aimfor a goal of 30 minutes, at least 3 times a week. You dont have to do 30 minutes in one session. Break it up and walk a little throughout the day. More Helpful Tips Start easy. Slowly work up to doing more. Talk with your healthcare provider about the best exercises for you. Call senior centers or health clubs about exercise programs. If needed, have a family member watch you walk every so often to check your stability. Exercise with a friend. Choose an activity you both enjoy. Try exercises that you can do anytime, anywhere. Here are two examples. Have someone with you when you first try these: Practice walking by placing one foot right in front of the other. Stand up and sit down 10 times. Repeat this throughout the day. [employer] Patient Education Copyright 2008 [employer] except where otherwise noted. Preventing Falls: Moving Safely Using a Cane or Walker (This education is for all patients over 65 regardless of symptoms) Keep the cane away from your feet so you dont trip. A walking aid, such as a cane or walker, can help you stay more independent and avoid falls. Remember to keep your walking aid within easy reach when youre in a chair or in bed. And learn how to use it safely so you dont injure yourself. Using a Cane If you have a stronger side, hold the cane on that side. Get your balance. Move the cane and your weaker leg forward. Support your weight on both the cane and your weaker side. Step with your stronger leg. Start again from step 1. If youre using a folding walker, be sure you know how to lock it open. Check that its locked open before each use. Using a Walker Roll the walker (or lift it, if youre using one without wheels) forward about 12 inches. Step forward with your weaker leg first. Use the walker to help keep your balance. Bring your other foot forward to the center of the walker. Start again from step 1. Helpful Tips Check with your healthcare provider about the right walking aid to use. Ask about a walker with a seat attached. Check the tips of your cane or walker to make sure they have nonskid covers. Move slowly from room to room. Dont tirado. Sit down to get dressed. Use a malaika pack or backpack to keep your hands free. Get help for jobs that mean climbing, even on a stepstool. [employer] Patient Education Copyright 2008 - 2010 [employer] except where otherwise noted. Treating Urinary Incontinence in Men (This education is for all patients over 65 regardless of symptoms) You can't always control the release of urine. You may leak urine. Or you may not be able to hold your urine until you can get to a bathroom. This is called urinary incontinence. The problem can be managed. Talk to your doctor about your treatment options. Taking Medications Prescription medications may help you. They may: Help the sphincter to work better. (This is the muscle that closes to keep urine from leaking out of the bladder.) Help stop the bladder from [place] too often to push urine out. Help the bladder muscles contract with more force. Help relax the sphincter muscle and allow urine to flow more freely. Making Changes to Your Routine Certain changes in your daily routine may help. These include: Avoiding caffeine and alcohol. Using timed voiding. This is following a schedule for drinking fluids and urinating. Doing Kegel exercises daily. These exercises involve tightening the muscles in your sphincter and around your bladder to help strengthen them. Your doctor can explain how to do them. Using a Catheter A catheter is a narrow tube that is inserted through the urethra into the bladder. It drains urine.A condom catheter covers the penis. It channels urine into a collection bag. It is worn most of thetime. Intermittent catheterization means inserting a catheter to drain the bladder, then removing it. This is done on a regular schedule. Having Surgery If other options don't work, surgery may be recommended. If surgery is an option, your healthcare provider can discuss it with you and explain its risks and benefits. Healing After Prostate Surgery Surgery on the prostate gland can cause incontinence. Most often, the incontinence is only for a short time. It clears up when healing is complete. Very rarely, prostate surgery can result in permanent incontinence. documented in this encounter Progress Notes * Adeel Douglas PA-C - 04/18/2023 9:33 AM EST Images from the original note were not included. History of Present Illness Jevon [place] is a 68 year old male that presents for Acute (Pt here for a rash, he has it on his head, and arms. Sx started about 6 weeks ago. It is very itchy. ) Patient with scalp, neck, arm rash/lesions x 4-5 months. Itchy, scratching until they are open and bleeding. Has been Rx'd cephalexin and topical steroids with minimal temporary improvement. No problems like this prior to past several months. Admits generally increased bruising arms >> legs. No abdominal complaints. Daily wine intake. Daily nicotine. Social History Tobacco Use Smoking status: Every Day Packs/day: 1 Types: Cigarettes Smokeless tobacco: Never Vaping Use Vaping Use: Never used Substance Use Topics Alcohol use: Yes Alcohol/week: 6.0 standard drinks of alcohol Types: 6 5 oz of wine per week Comment: Wine all day Drug use: Never Physical Exam Vitals: 04/18/23 0925 Temp: 36.7 C (98 F) Pulse: 94 Resp: 20 SpO2: 97% BP: 148/98 Wt Readings from Last 3 Encounters: 04/18/23 65.1 kg (143 lb 9.6 oz) 03/05/23 66.2 kg (146 lb) 09/11/22 67 kg (147 lb 11.2 oz) Physical Exam Vitals and nursing note reviewed. Constitutional: General: He is not in acute distress. Comments: Frail, ambulating with use of cane. Cardiovascular: Rate and Rhythm: Normal rate and regular rhythm. Pulmonary: Effort: Pulmonary effort is normal. Breath sounds: No wheezing, rhonchi or rales. Abdominal: General: Bowel sounds are normal. Palpations: Abdomen is soft. Tenderness: There is no abdominal tenderness. There is no guarding. Musculoskeletal: General: No swelling. Skin: Comments: Excoriated superficial open sores on scalp, posterior neck, arms. No edema, erythema, warmth, red streaking, or purulence. Extensive bruising on bilateral arms, no active bleeding. Neurological: Mental Status: He is alert and oriented to person, place, and time. Psychiatric: Behavior: Behavior normal. I have reviewed the following results: Hemoglobin Results: Lab Results Component Value Date/Time [facility] - [facility] 14.7 02/08/2020 09:00 AM [facility] - [facility] 15.9 11/03/2018 11:38 AM Assessment and Plan Scalp irritation - DERMATOLOGY REFERRAL OP - Loratadine 10 MG Oral Tablet (Claritin); Take 1 Tablet by mouth in the morning. - Ketoconazole 2 % External Shampoo (Nizoral); Apply topically to affected area every 3 days for 28days. Shampoo twice a week Pruritus - Loratadine 10 MG Oral Tablet (Claritin); Take 1 Tablet by mouth in the morning. Rash and nonspecific skin eruption - DERMATOLOGY REFERRAL OP - Loratadine 10 MG Oral Tablet (Claritin); Take 1 Tablet by mouth in the morning. Easy bruising - CBC WITH WBC DIFFERENTIAL AND ANEMIA REFLEX WORKUP; Future - PT INR; Future - APTT; Future Alcohol use disorder - HEPATIC FUNCTION PANEL; Future; Expected date: 04/18/2023 - FOLIC ACID; Future; Expected date: 04/18/2023 - VITAMIN B1 (THIAMINE), BLOOD, LC/MS/MS; Future; Expected date: 04/18/2023 Risk and functional assessment Need for hepatitis C screening test - HEPATITIS C ANTIBODY SCREEN WITH PROGRESSION TO HEPATITIS C RNA QUANTITATIVE; Future; Expected date: 04/18/2023 Wrap-Up Follow Up: Return for Labs Today. | For: Labs Today | Check-out note: 05/13/2023 Time: I spent a total of 30-39 minutes (exact time 30 mins) on the date of service in preparation, delivery, and documentation of the care provided to Jevon [place] excluding any time spent in the performance of separately billed services. documented in this encounter Nursing Notes * Essence Hunter MED ASSIST - 04/18/2023 9:24 AM EST The patient has been properly identified by confirmation of name and date of . Chief Complaint Patient presents with Acute Pt here for a rash, he has it on his head, and arms. Sx started about 6 weeks ago. It is very itchy. documented in this encounter Plan of Treatment Upcoming Encounters Date Type Department Care Team ([facility] st Contact Info) Description 04/29/2023 3:20 PM EST Office Visit Dermatology [address] [phone] Bennie Randall PA-C [address] [place] [phone] 05/13/2023 10:00 AM EST Office Visit [address] [phone] Jabari Paz PA-C [address] [place] [phone] Pending Results Name Type Priority Associated Diagnoses Date /Time CBC WITH WBC DIFFERENTIAL AND ANEMIA REFLEX WORKUP Lab Routine Easy bruising 04/18/2023 10:07 AM EST PT INR Lab Routine Easy bruising 04/18/2023 10:07 AM EST APTT Lab Routine Easy bruising 04/18/2023 10:08 AM EST HEPATITIS C ANTIBODY SCREEN WITH PROGRESSION TO HEPATITIS C RNA QUANTITATIVE Lab Routine Need for hepatitis C screening test 04/18/2023 10:07 AM EST FOLIC ACID Lab Routine Alcohol use disorder 04/18/2023 10:07 AM EST Scheduled Orders Name Type Priority Associated Diagnoses Orde r Schedule CBC WITH WBC DIFFERENTIAL AND ANEMIA REFLEX WORKUP Lab Routine Easy bruising Expected: 04/18/2023 (Approximate), Expires: 04/18/2024 PT INR Lab Routine Easy bruising Expected: 04/18/2023 (Approximate), Expires: 04/17/2024 APTT Lab Routine Easy bruising Expected: 04/18/2023 (Approximate), Expires: 04/17/2024 HEPATITIS C ANTIBODY SCREEN WITH PROGRESSION TO HEPATITIS C RNA QUANTITATIVE Lab Routine Need for hepatitis C screening test Expected: 04/18/2023 (Approximate), Expires: 04/17/2024 FOLIC ACID Lab Routine Alcohol use disorder Expected: 04/18/2023 (Approximate), Expires: 04/17/2024 Scheduled Referrals Name Type Priority Associated Diagnoses Orde r Schedule DERMATOLOGY REFERRAL OP Referral Within 10 days (routine) Rash and nonspecific skin eruption Scalp irritation Ordered: 04/18/2023 Health Maintenance Due Date Last Done Comments [...] < 10) 03/06/2023 03/05/2023 GFR 08/01/2023 07/31/2022, 100 09/2020, 02/08/2020, Additional history exists Lipid Panel 02/13/2026 02/13/2021, 040 10/2020, 02/08/2020, Additional history exists DTaP,Tdap,and Td [...] as of this encounter Visit Diagnoses Diagnosis Scalp irritation- Primary Unspecified disorder of skin and subcutaneous tissue Pruritus Unspecified pruritic disorder Rash and nonspecific skin eruption Rash and other nonspecific skin eruption Easy bruising Other symptoms involving skin and integumentary tissues Alcohol use disorder Risk and functional assessment Screening for unspecified condition Need for hepatitis C screening test Special screening examination for other specified viral diseases documented in this encounter Care Teams Farmworker Livestock Relationship Specialty Start Date End Date Carlos Alberto Covington PA-C [address] [place] [phone] PCP - General Physician University Archivist 11/19/22 documented as of this encounter"
--- OUTSIDE RECORDS SUMMARY | 2023-07-17 12:04 | External Medical Summary ---
Author Name Unknown Address Unknown Organization K01:[facility] [place] [address] [place] [address] Laboratory Report Ordering Provider Test Date Status JUDD HSU 04/18/2023 10:07:39 Final Observation Date Value Abnormality Reference (Units ) Status Bilirubin, Direct 04/18/2023 10:07:39 0.3 0. 0-0.3 (mg/dL) Final Performing Location [facility] - [address] [place] [address]
--- OUTSIDE RECORDS SUMMARY | 2023-07-17 12:04 | External Medical Summary | Summary of Care ---
Author Name Unknown Organization [facility] Address [address] [place] [address] Phone [phone] Care Team Providers Care Director Of Recreation Therapy Name Role Phone Carlos Alberto Covington PA-C Primary Care Provider [phone] Reason for Visit * Reason Comments eRx-Medication Refill Encounter Details Date Type Department Care Team ([facility] st Contact Info) Description 04/17/2023 Refill [facility] [address] [place] [address] Paulina Fofana PA-C [address] [place] [address] Skin irritation Allergies No known active allergiesdocumented as of [...] 09/11/2022 Active Lisinopril 10 MG Oral Tablet (Prinivil)Indicat [...] 04/01/2023 Active Clobetasol Propionate 0.05 % External SolutionIndicatio ns:Skin irritation APPLY TO AFFECTED AREA DAILY NEEDED FOR SCALP IRRITATION 50 mL 1 04/18/2023 Active Clobetasol Propionate 0.05 % External SolutionIndicatio ns:Skin irritation Apply topically to affected area daily as needed (scalp irritation). 25 mL 1 12/30/2022 Discontinued documented as of this encounter (statuses [...] mRNA, LNP-s, No Pre serve, 2-Dose Series (Xanofi) 02/26/2021,07/08/2020,06/17/2020 Pneumococcal Conjugate Vacci ne, 20-valent ([id number]) 09/11/2022 Seasonal Influenza, Trivalen t, Adjuvanted, 65+ [...] encounter Miscellaneous Notes * Telephone Encounter - Pilar Nunez LPN - 04/18/2023 9:20 AM ESTPending Prescriptions: Disp Refills Clobetasol Propionate 0.05 % External Solu*50 mL 1 Sig: APPLY TO AFFECTED AREA DAILY NEEDED FOR SCALP IRRITATION * Telephone Encounter - Patricia Torres - 04/17/2023 1:10 PM ESTPending Prescriptions: Disp Refills Clobetasol Propionate 0.05 % External Solu*50 mL 1 Sig: APPLY TO AFFECTED AREA DAILY NEEDED FOR SCALP IRRITATION documented in this encounter Plan of Treatment Upcoming Encounters Date Type Department Care Team (Late st Contact Info) Description 04/18/2023 10:20 AM EST Laboratory Laboratory Patient Service [address] [place] [phone] [facility] [address] [address] Arrived 04/29/2023 3:20 PM EST Office Visit Dermatology [facility] [address] [place] [phone] Bennie Randall PA-C [address] [place] [address] 05/13/2023 10:00 AM EST Office Visit Family Practice [facility] [address] [place] [phone] Jabari Paz PA-C [address] [place] [address] Health Maintenance Due Date Last Done Comments [...] as of this encounter Visit Diagnoses Diagnosis Skin irritation Unspecified disorder of skin and subcutaneous tissue documented in this encounter Care Teams Director Of Recreation Therapy Relationship Specialty Start Date End Date Carlos Alberto Covington PA-C [address] [place] [phone] PCP - General Physician Wall Taper 11/19/22 documented as of this encounter
--- OUTSIDE RECORDS SUMMARY | 2023-07-17 12:04 | External Medical Summary ---
Author Name Unknown Address Unknown Organization K01:LABORATORY [facility] [place] - [address] [place] [address] Laboratory Report Ordering Provider Test Date Status EKATERINA MOTA 04/18/2023 10:07:39 Final Observation Date Value Abnormality Reference (Units ) Status Rheumatoid Factor 04/18/2023 10:07:39 11 <1 4 (IU/mL) Final Performing Location LABORATORY [facility] [place] - [address] [place] [address]
--- OUTSIDE RECORDS SUMMARY | 2023-07-17 12:04 | External Medical Summary ---
Author Name Unknown Address Unknown Organization K01:LABORATORY [facility] [place] - [address] [place] [address] Laboratory Report Ordering Provider Test Date Status ARACELISHILDAEMMANUEL 04/18/2023 10:07:39 Final Observation Date Value Abnormality Reference (Units ) Status SYNC LEUKOCYTES IN BLOOD BY AUTOMATED COUNT 04/18/2023 10:07:39 5.75 4.00-10.80 (K/uL) Final Segs 04/18/2023 10:07:39 70.3 40.0-75.0 (%) Final Lymphs % 04/18/2023 10:07:39 14.3 Below low normal 18.0-42.0 (%) Final Monos 04/18/2023 10:07:39 10.8 1.0-11.0 (%) Final Eosinophils 04/18/2023 10:07:39 3.1 0.0-6.0 (%) Final Basos 04/18/2023 10:07:39 1.0 0.0-2.0 (%) Final Immature Granulocyte, Percent 04/18/2023 10:07:39 0.5 0.0-2.0 (%) Final Absolute Segs 04/18/2023 10:07:39 4.04 1.80-7.70 (K/uL) Final Lymphs, absolute 04/18/2023 10:07:39 0.82 Below low normal 1.00-4.80 (K/ul) Final Monos, Abs 04/18/2023 10:07:39 0.62 0.00-1.10 (K/uL) Final Eos, Abs 04/18/2023 10:07:39 0.18 0.00-0.70 (K/uL) Final Basos, Abs 04/18/2023 10:07:39 0.06 0.00-0.20 (K/uL) Final Immature Granulocytes, Number 04/18/2023 10:07:39 0.03 0.00-0.20 (K/uL) Final Performing Location LABORATORY [facility] [place] - [address] [facility] [address]
--- OUTSIDE RECORDS SUMMARY | 2023-07-17 12:04 | External Medical Summary ---
Author Name Unknown Address Unknown Organization [id number]:[facility] [place] [address] [place] [address] Laboratory Report Ordering Provider Test Date Status JUDD HSU 04/18/2023 10:07:39 Final Warfarin Therapy
INR: 2 .0-3.0 conventional anticoagulation
INR: 2.5- 3.5 high intensity anticoagulation Observation Date Value Abnormality Reference (Units ) Status PT 04/18/2023 10:07:39 12.2 11.6-15.2 (seconds) Final INR 04/18/2023 10:07:39 0.9 0.8-1.2 Final Performing Location [facility] [place] [address] [place] [address]
--- OUTSIDE RECORDS SUMMARY | 2023-07-17 12:04 | External Medical Summary ---
Author Name Unknown Address Unknown Organization [id number]:[facility]ATORY [facility] – [place] - [address] [place] [address] Laboratory Report Ordering Provider Test Date Status JUDD HSU 04/18/2023 10:07:39 Final Observation Date Value Abnormality Reference (Units ) Status Folic Acid 04/18/2023 10:07:39 2.8 Below low normal >4 .5 (ng/mL) Final Performing Location [facility]ORY [facility] [place] - [address] [place] [address]
--- OUTSIDE RECORDS SUMMARY | 2023-07-17 12:04 | External Medical Summary ---
Author Name Unknown Address Unknown Organization [id number]:[facility] [place] [address] [place] [address] Laboratory Report Ordering Provider Test Date Status JUDD HSU 04/18/2023 10:08:34 Final Anticoagulation may affect t esting. Refer to [employer] Test Catalog for a list of effects. Observation Date Value Abnormality Reference (Units ) Status aPTT panel - Platelet poor plasma 04/18/2023 10:08:34 27 21-38 (seconds) Final Performing Location [facility] [place] [address] [place] [address]
--- OUTSIDE RECORDS SUMMARY | 2023-07-17 12:04 | External Medical Summary ---
Author Name Unknown Address Unknown Organization [id number]:[facility]ATORY [facility] [place] - [address] [place] [address] Laboratory Report Ordering Provider Test Date Status EKATERINA MOTA 04/18/2023 10:07:39 Final Observation Date Value Abnormality Reference (Units ) Status Vitamin B12 04/18/2023 10:07:39 [phone] (pg/mL) Final Performing Location [facility]ORY [facility] [place] - [address] [place] [address]
--- OUTSIDE RECORDS SUMMARY | 2023-07-17 12:04 | External Medical Summary ---
Author Name Unknown Address Unknown Organization : Laboratory Report Ordering Provider Test Date Status EKATERINA MOTA 04/18/2023 10:07:39 Final Observation Date Value Abnormality Reference (Units ) Status Thiamine [Moles/volume] in Blood 04/18/2023 10:07:39 88 78-185 (nmol/L) Final Vitamin supplementation with in 24 hours prior to
blood draw may affect the accuracy of the results.
This test was developed and its analytical performance
characteristics have been determined by [facility]
[place], [place]. It has
not been cleared or approved by the U.S. Food and Drug
Administration. This assay has been validated pursuant
to the CLIA regulations and is used for clinical
purposes.

Test Performed at:
[facility]
[address] [facility]
[place], [place]
Claude Nunes M.D., Ph.D.,Director of Laboratories Performing Location
--- OUTSIDE RECORDS SUMMARY | 2023-07-17 12:05 | External Medical Summary | Summary of Care ---
Author Name Unknown Organization [facility] Address [address] [place] [address] Phone [phone] Care Team Providers Care Supervisor Hot Dip Tinning Name Role Phone Carlos Alberto Covington PA-C Primary Care Provider + [phone] Reason for Visit * Reason Onset Date Comments Medication Refill 02/19/2023 Encounter Details Date Type Department Care Team Description 02/19/2023 Telephone [facility] [address] [place] [address] Carlos Alberto Covington PA-C [address] [place] [address] Medication Refill Allergies No known active allergiesdocumented as of this encounter (statuses as of 02/20/2023) Medications Medication Sig Dispensed Refills Start Date End Date Status Zoster Vac Recomb Adjuvanted 50 MCG/0.5ML Intramuscular Suspension Reconstituted (Shingrix)Indication s:Need for vaccination for zoster Inject 0.5 mL into a large muscle now and repeat dose in 60 to 180 days 1 Each 0 09/11/2022 Active Daily-Maciej Multivitamin Oral Tablet Take 1 Tablet by mouth in the morning. 0 08/01/2022 Active Albuterol Sulfate HFA 108 (90 Base) MCG/ACT Inhalation Aerosol Solution INHALE TWO PUFFS BY MOUTH EVERY 4 HOURS NEEDED FOR SHORTNESS OF BREATH OR WHEEZING 18 g 4 09/11/2022 09/11/2023 Active Lisinopril 10 MG Oral Tablet (Prinivil)Indication s:HTN, goal below 130/80 Take 1 Tablet by mouth in the morning. 90 Tablet 1 11/20/2022 Active Ventolin HFA 108 (90 Base) MCG/ACT Inhalation Aerosol Solution Inhale 2 Puffs by mouth every 4 hours as needed for Shortness of Breath or Wheezing. 54 g 1 11/21/2022 Active Clobetasol Propionate 0.05 % External SolutionIndications: Skin irritation Apply topically to affected area daily as needed (scalp irritation). 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 HTN, goal below 130/80 11/03/2018 Lumbar radiculopathy 11/03/2018 Lumbar degenerative disc disease 019 documented as of this encounter (statuses as of 02/20/2023) Resolved Problems Problem Noted Date Resolved Date Screening PSA (prostate specific antigen) 201811/10/2018 documented as of this encounter (statuses as of 02/20/2023) Immunizations Name Administration Dates Next Due COVID-19 mRNA, LNP-s, No Pre serve, 2-Dose Series ([employer]) 02/26/2021,07/08/2020,06/17/2020 Pneumococcal Conjugate Vacci ne, 20-valent ([id number]) 09/11/2022 Seasonal Influenza, Trivalen t, Adjuvanted, 65+ yrs 02/26/2021 TDAP (age 10 and older)(Boostrix) 04/25/2018 documented as of this encounter Social History Tobacco Use Types Packs/Day Years Used Date Smoking Tobacco: Every Day Cigarettes 1 Smokeless Tobacco: Never Alcohol Use Standard Drinks/Week Comments Yes 6 (1 standard drink = 0.6 oz pur e alcohol) glass of wine with dinner Alcohol Habits Answer Date Recorded How often do you have a drin k containing alcohol? 4 or more times a week 11/03/2018 How many drinks containing a lcohol do you have on a typical day when you are drinking? 1 or 2 11/03/2018 How often do you have six or more drinks on one occasion? Never 11/03/2018 Sex Assigned at Date Recorded Not on file Job Start Date Occupation Industry Not on file Not on file Not on file documented as of this encounter Miscellaneous Notes * Telephone Encounter - Tapan Davila LPN - 02/20/2023 9:50 AM EDT To ordering provider * Telephone Encounter - KATIUSKA Rubio - 02/19/2023 1:23 PM EDT Patient requesting refills for Cephalexin 500 MG Oral Capsule (Keflex . Upon chart review, medication is listed as as of 01/27/2023 . Please advise if you wish to continue this therapy for thepatient. Thank you, Lorie Shaikh [employer] [facility] ([facility]) 02/19/2023,1:29 PM documented in this encounter Plan of Treatment Upcoming Encounters Date Type Specialty Care Team Description 03/11/2023 Office Visit Family Medicine Carlos Alberto Covington PA-C [address] [place] [address] Health Maintenance Due Date Last Done Comments Depression Screening 1968 Albumin/Creatinine Ratio 12/31/1973 Hepatitis C Screening 12/31/1973 Cologuard 12/31/2000 Fecal Occult Blood Test 12/31/2000 Sigmoidoscopy 12/31/2000 Zoster Vaccines (1 of 2) 12/31/2005 Colonoscopy 03/29/2019 03/29/2009 Colorectal Cancer Screening 03/29/2019 AAA Screening 12/31/2020 COVID-19 Vaccine ( season) 2023 02/26/2021, 07/08/2020, 06/17/2020 Influenza Vaccine (FLU shot) (#1) 2023 02/26/2021 GFR 08/01/2023 07/31/2022, 1009/2020, 02/08/2020, Additional history exists Lipid Panel 02/13/2026 [...] filedocumented as of this encounter Care Teams Supervisor Hot Dip Tinning Relationship Specialty Start Date End Date Carlos Alberto Covington PA-C [address] [place] [address] PCP - General Physician Timber Sizer Operator 11/19/22 documented as of this encounter
--- OUTSIDE RECORDS SUMMARY | 2023-07-17 12:05 | External Medical Summary | Summary of Care ---
Author Name Unknown Organization [facility] Address [address] [place] [address] Phone [phone] Care Team Providers Care Propeller Mechanic Name Role Phone Carlos Alberto Covington PA-C Primary Care Provider + [phone] Reason for Visit * Reason Comments Acute Patient is here toda y due to not feeling well and a rash that is starting to spread. Per patient the rash itches and he has been opening it by digging at it. Patient states the rash has been there for about 3-4 weeks. Patient states he smokes too much and drinks too much and he has no energy. Patient states he has drank today already Encounter Details Date Type Department Care Team (Late st Contact Info) Description 03/05/2023 10:00 AM EDT Office Visit [address] [phone] Venita Davis MD [address] [place] [phone] Current moderate episode of major depressive disorder without prior episode (HCC)*; Screening for depression; Alcohol use disorder Allergies No known active allergiesdocumented as of this encounter (statuses as of 03/05/2023) Medications Medication Sig Dispensed Refills Start Date End Date Status Daily-Maciej Multivitamin Oral Tablet Take 1 Tablet by mouth in the morning. 0 08/01/2022 Active Albuterol Sulfate HFA 108 (90 Base) MCG/ACT Inhalation Aerosol Solution INHALE TWO PUFFS BY MOUTH EVERY 4 HOURS NEEDED FOR SHORTNESS OF BREATH OR WHEEZING 18 g 4 09/11/2022 4 Active Lisinopril 10 MG Oral Tablet (Prinivil)Indicatio ns:HTN, goal below 130/80 Take 1 Tablet by mouth in the morning. 90 Tablet 1 11/20/2022 Active Ventolin HFA 108 (90 Base) MCG/ACT Inhalation Aerosol Solution Inhale 2 Puffs by mouth every 4 hours as needed for Shortness of Breath or Wheezing. 54 g 1 11/21/2022 Active Clobetasol Propionate 0.05 % External SolutionIndications :Skin irritation Apply topically to affected area daily as needed (scalp irritation). 25 mL 1 12/30/2022 Active Cephalexin 500 MG Oral Capsule (Keflex) Take 1 Capsule by mouth in the morning and 1 Capsule at noon and 1 Capsule before bedtime. 30 Capsule 0 02/21/2023 Active Sertraline HCl 25 MG Oral Tablet (Zoloft)Indications :Current moderate episode of major depressive disorder without prior episode (HCC) Take 1 Tablet by mouth in the morning. 30 Tablet 5 03/05/2023 Active Zoster Vac Recomb Adjuvanted 50 MCG/0.5ML Intramuscular Suspension Reconstituted (Shingrix)Indicatio ns:Need for vaccination for zoster Inject 0.5 mL into a large muscle now and repeat dose in 60 to 180 days 1 Each 0 09/11/2022 3 Discontinue d(Patient preference/ discontinua tion) documented as of this encounter (statuses as of 03/05/2023) Active Problems Problem Noted Date Diagnosed Date [...] as of this encounter (statuses as of 03/05/2023) Resolved Problems Problem Noted Date Diagnosed Date Resolved Date Screening PSA (prostate specific antigen) 11/10/2018 11/10/2018 documented as of this encounter (statuses as of 03/05/2023) Immunizations Name Administration Dates Next Due COVID-19 mRNA, LNP-s, No Pre serve, 2-Dose Series ([employer]) 02/26/2021,07/08/2020,06/17/2020 Pneumococcal Conjugate Vacci ne, 20-valent ([id number]) 09/11/2022 Seasonal Influenza, Trivalen t, Adjuvanted, 65+ [...] 019 Frequency of Binge Drinking Never 10/11 Sex and Gender Information Value Date Recorded Sex Assigned at Not on file Gender Identity Not on file Sexual Orientation Not on file Job Start Date Occupation Industry Not on file Not on file Not on file documented as of this encounter Last Filed Vital Signs Vital Sign Reading Time Taken Comments Blood Pressure 142/78 03/05/2023 9:58 AM EDT Pulse 110 03/05/2023 9:58 AM EDT Temperature 36.3 C (97.4 F) 03/05/2023 9:58 AM ED T Respiratory Rate 18 03/05/2023 9:58 AM EDT Oxygen Saturation 97% 03/05/2023 9:58 AM EDT Inhaled Oxygen Concentration - - Weight 66.2 kg (146 lb) 03/05/2023 9:58 AM EDT Height 178.5 cm (5' 10.28") 03/05/2023 9:58 AM E DT Body Mass Index 20.78 03/05/2023 9:58 AM EDT documented in this encounter Progress Notes * Venita Davis MD - 03/05/2023 10:25 AM EDT Images from the original note were not included. History of Present Illness Jevon Johnson is a 68 year old male with hypertension, chronic back pain with impaired ambulation that presents for Acute (Patient is here today due to not feeling well and a rash that is startingto spread. /Per patient the rash itches and he has been opening it by digging at it. /Patient states the rash has been there for about 3-4 weeks. /Patient states he smokes too much and drinks too much and he has no energy. Patient states he has drank today already) Denies concerns about rash. Says his real concern today is worsening depression. Feels it has slowly worsened since his injury at work that has lead to significant back pain and impaired mobility. Feels worthless at times because he is unable to do things he used to do. Reports depressed mood, low energy, trouble sleeping, poor appetite, psychomotor retardation, and passive SI.No active thoughts or intent. He is self medicating drinking one bottle of wine per day. He is drinking in the morning. No symptoms of withdrawal. Knows it is too much. Smoking a lot too. Phq2 Adult-Depression Question 03/05/2023 10:02 AM EDT - Filed by Kareen Carlson LPN Over the last two weeks, how often have you been bothered by any of the following problems? Little interest or pleasure in doing things Not at all Feeling down, depressed or hopeless Nearly everyday Sum of the PHQ1 and PHQ2 questions (range: 0 - 6) 3 (Further screening recommended) Over the last two weeks, how often have you been bothered by any of the following problems? Trouble falling or staying asleep, or sleeping too much Not at all Feeling tired or having little energy Nearly everyday Poor appetite or overeating Nearly everyday Feeling bad about yourself - or that you are a failure, or have let yourself or your family down Nearly everyday Trouble concentrating on things, such as reading the newspaper or watching television Nearly everyday Moving or speaking so slowly that other people could have noticed. Or the opposite - being so fidgety or restless that you have been moving around a lot more than usual Nearly everyday Thoughts that you would be better off , or of hurting yourself Several days Question 3 score (range: 0 - 3) 0 Question 4 score (range: 0 - 3) 3 Question 5 score (range: 0 - 3) 3 Question 6 score (range: 0 - 3) 3 Question 7 score (range: 0 - 3) 3 Question 8 score (range: 0 - 3) 3 Question 9 score (range: 0 - 3) 1 Sum of all PHQ9 questions. (range: 0 - 27) 19 (Moderately Severe Depression) Physical Exam Vitals: 03/05/23 0958 Temp: 36.3 C (97.4 F) Pulse: 110 Resp: 18 SpO2: 97% BP: 142/78 BMI: 20.78 I have reviewed the following results: CBC Assessment and Plan Current moderate episode of major depressive disorder without prior episode (HCC) Start Zoloft 25 mg daily and increase as needed after 4 weeks. Declined counseling for depression and alcohol use. Passive SI without any intent and contracts for safety if he does develop more active thoughts - Sertraline HCl 25 MG Oral Tablet (Zoloft); Take 1 Tablet by mouth in the morning. Screening for depression As above - DEPRESSION SCREENING PERFORMED Alcohol use disorder Declined counseling. He is pre contemplative. Recommend checking CBC, CMP, TSH at follow up Wrap-Up Follow Up: Return in about 5 weeks (around 04/09/2023) for Return with Physician. | For: Return with Physician Time: I spent a total of 20-29 minutes (exact time 21 mins) on the date of service in preparation, delivery, and documentation of the care provided to Jevon Johnson excluding any time spent in the performance of separately billed services. documented in this encounter Nursing Notes * Kareen Carlson LPN - 03/05/2023 10:01 AM EDT The patient has been properly identified by confirmation of name and date of . Chief Complaint Patient presents with Acute Patient is here today due to not feeling well and a rash that is starting to spread. Per patient the rash itches and he has been opening it by digging at it. Patient states the rash has been there for about 3-4 weeks. Patient states he smokes too much and drinks too much and he has no energy. Patient states he has drank today already documented in this encounter Plan of Treatment Upcoming Encounters Date Type Department Care Team (Late st Contact Info) Description 04/08/2023 11:40 AM EST Office Visit [facility] [place] [address] [place] [address] Carlos Alberto Covington PA-C [address] [place] [address] 04/09/2023 8:20 AM EST Office Visit [facility] [place] [address] [place] [address] Venita Davis MD [address] [place] [phone] Health Maintenance Due Date Last Done Comments Depression Screening 1968 Albumin/Creatinine Ratio 12/31/1973 Hepatitis C Screening 12/31/1973 Cologuard 12/31/2000 Fecal Occult Blood Test 12/31/2000 Sigmoidoscopy 12/31/2000 Zoster Vaccines (1 of 2) 12/31/2005 Colonoscopy 03/29/2019 03/29/2009 Colorectal Cancer Screening 03/29/2019 AAA Screening 12/31/2020 COVID-19 Vaccine ( season) 2023 02/26/2021, 07/08/2020, 06/17/2020 Influenza Vaccine (FLU shot) (#1) 2023 02/26/2021 GFR 08/01/2023 07/31/2022, 10/0 09/2020, 02/08/2020, Additional [...] as of this encounter Visit Diagnoses Diagnosis Current moderate episode of major depressive disorder without prior episode (HCC)- Primary Screening for depression Alcohol use disorder documented in this encounter Care Teams Propeller Mechanic Relationship Specialty Start Date End Date Carlos Alberto Covington PA-C [address] [place] [address] PCP - General Physician Welding Technician 11/19/22 documented as of this encounter
--- OUTSIDE RECORDS SUMMARY | 2023-07-17 12:05 | External Medical Summary | Summary of Care ---
Author Name Unknown Organization [facility] Address [address] [place] [address] Phone [phone] Care Team Providers Care Operation Shift Supervisor Name Role Phone Carlos Alberto Covington PA-C Primary Care Provider + [phone] Reason for Visit * Reason Onset Date Comments Medication Refill 02/19/2023 Encounter Details Date Type Department Care Team Description 02/19/[address] [facility] [address] [place] [address] Carlos Alberto Covington PA-C [address] [place] [address] Medication Refill Allergies No known active allergiesdocumented as of this encounter (statuses as of 02/21/2023) Medications Medication Sig Dispensed Refills Start Date [...] 09/11/2022 Active Lisinopril 10 MG Oral Tablet (Prinivil)Indicatio [...] before bedtime. 30 Capsule 0 02/21/2023 Active Cephalexin 500 MG Oral Capsule (Keflex) Take 1 Capsule by mouth in the morning and 1 Capsule at noon and 1 Capsule before bedtime. Do all this for 10 days. 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 HTN, goal below 130/80 11/03/2018 Lumbar radiculopathy 11/03/2018 Lumbar degenerative disc disease 019 documented as of this encounter (statuses as of 02/21/2023) Resolved Problems Problem Noted Date Resolved Date Screening PSA (prostate specific antigen) 201811/10/2018 documented as of this encounter (statuses as of 02/21/2023) Immunizations Name Administration Dates Next Due COVID-19 mRNA, LNP-s, No Pre serve, 2-Dose Series ([employer]) 02/26/2021,07/08/2020,06/17/2020 Pneumococcal Conjugate Vacci ne, 20-valent ([id number]) 09/11/2022 Seasonal Influenza, Trivalen t, Adjuvanted, 65+ [...] as of this encounter Miscellaneous Notes * Addendum Note - Aristides Davila MD - 02/21/2023 8:08 PM EDT Addended by: ARISTIDES MEJIA on: 02/21/2023 08:08 PM Modules accepted: Orders * Telephone Encounter - Aristides Davila MD - 02/21/2023 8:08 PM EDT Cephalexin was electronically prescribed. If condition does not improve, make appointment to be seen in person. * Telephone Encounter - Tapan Davila LPN - 02/20/2023 9:50 AM EDT To ordering provider * Telephone Encounter - KATIUSKA Rubio - 02/19/2023 1:23 PM EDT Patient requesting refills for Cephalexin 500 MG Oral Capsule (Keflex . Upon chart review, medication is listed as as of 01/27/2023 . Please advise if you wish to continue this therapy for thepatient. Thank you, Lorie Shaikh Content Analyst [facility]) 02/19/2023,1:29 PM documented in this encounter Plan of Treatment Upcoming Encounters Date Type Specialty Care Team Description 03/11/2023 Office Visit Family Medicine Carlos Alberto Covington PA-C [address] [place] [address] Health Maintenance Due Date Last Done Comments [...] filedocumented as of this encounter Care Teams Operation Shift Supervisor Relationship Specialty Start Date End Date Carlos Alberto Covington PA-C [address] [facility] [place] [address] PCP - General Physician Shipboard Intelligence Analyst 11/19/22 documented as of this encounter
--- OUTSIDE RECORDS SUMMARY | 2023-07-17 12:05 | External Medical Summary | Summary of Care ---
Author Name Unknown Organization [facility] Address [address] [place] [address] Phone [phone] Care Team Providers Care Application Security Specialist Name Role Phone Carlos Alberto Covington PA-C Primary Care Provider [phone] Reason for Visit * Reason Onset Date Comments Medication Refill 06/18/2022 Encounter Details Date Type Department Care Team Description 06/18/[address] [address] Nakul Angulo MD [address] [place] [id number] HTN, goal below 130/80* Allergies No known active allergiesdocumented as of this encounter (statuses as of 02/26/2023) Medications Medication Sig Dispensed Refills Start Date End Date Status Lisinopril 10 MG Oral Tablet (Prinivil) TAKE ONE TABLET BY MOUTH EVERY MORNING 90 Tablet 0 03/01/2022 3 Discontinued(Refi ll) Lisinopril 10 MG Oral Tablet (Prinivil)Indica tions:HTN, goal below 130/80 Take 1 Tablet by mouth in the morning. In the morning.. 90 Tablet 0 06/19/2022 3 Discontinued(Refi ll) Lisinopril 10 MG Oral Tablet (Prinivil)Indica tions:HTN, goal below 130/80 Take 1 Tablet by mouth in the morning. In the morning.. 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 HTN, goal below 130/80 11/03/2018 Lumbar radiculopathy 11/03/2018 Lumbar degenerative disc disease 019 documented as of this encounter (statuses as of 02/26/2023) Resolved Problems Problem Noted Date Resolved Date Screening PSA (prostate specific antigen) 201811/10/2018 documented as of this encounter (statuses as of 02/26/2023) Immunizations Name Administration Dates Next Due COVID-19 mRNA, LNP-s, No Pre serve, 2-Dose Series (Pfizer) 02/26/2021,07/08/2020,06/17/2020 Pneumococcal Conjugate Vacci ne, 20-valent ([id number]) 09/11/2022 Seasonal Influenza, Trivalen t, Adjuvanted, 65+ [...] encounter Miscellaneous Notes * Telephone Encounter - Natividad Gupta, document control specialist - 02/26/2023 5:10 PM EDT Pt had labs completed on 07/31/22 Thank you, Natividad Gupta Sweatband Perforator [facility] ([facility] ([facility]) [phone] 02/26/2023,5:10 PM * Telephone Encounter - Estrellita Shaw [facility] - 06/28/2022 1:06 PM ESTSigned Prescriptions: Disp Refills Lisinopril 10 MG Oral Tablet (Prinivil) 90 Tab*0 Sig: Take 1 Tablet by mouth in the morning. In the morning..Authorizing Provider: NAKUL ANGULO User: ESTRELLITA SHAW * Telephone Encounter - Soumya Plata - 06/28/2022 12:43 PM EST Please reroute Rx to [facility]-[address] [place]. Pending Prescriptions: Disp Refills Lisinopril 10 MG Oral Tablet (Prinivil) 90 Tab*0 Sig: Take 1 Tablet by mouth in the morning. In the morning.. Last Visit: 07/26/2021 (in office), Visit date not found (telemedicine) Visit date not found If no future appointments scheduled, and last appointment is greater than a year ago, please schedule patient for a follow-up appointment Last date the medication was ordered: 06/19/22 Patient Phone Numbers Labs: Lab Results Component Value Date/Time CREAT 0.7 02/13/2021 09:00 AM CREAT 0.7 02/08/2020 09:00 AM POTASSIUM 4.5 02/13/2021 09:00 AM POTASSIUM 4.7 02/08/2020 09:00 AM TSH 1.49 02/08/2020 09:00 AM LDLCALC 110 02/13/2021 09:00 AM LDLCALC 158 (H) 02/08/2020 09:00 AM LDLDIRECT NOT APPLICABLE 02/08/2020 09:00 AM ALT 19 02/13/2021 09:00 AM ALT 17 02/08/2020 09:00 AM * Telephone Encounter - Yovany Bangura [facility] - 06/19/2022 1:13 PM ESTSigned Prescriptions: Disp Refills Lisinopril 10 MG Oral Tablet (Prinivil) 90 Tab*0 Sig: Take 1 Tablet by mouth in the morning. In the morning.. Authorizing Provider: NAKUL ANGULO Ordering User: YOVANY BANGURA * Telephone Encounter - Yovany Bangura [facility] - 06/19/2022 1:13 PM EST Provided 90 days supply with 0 refill(s). Per refill protocol patient should have CMP on file within past year. Reviewed AMP report, Care Gaps/Health Maintenance, medications list, and for any routine labs typically ordered for this patient. Lab orders placed. Please contact patient to advise of labs ordered for blood draw.. Recommend patient to fast if ablefor labs. Patient may still have water and regular medications. Advise to obtain labs before requesting the next refill. Thank You, Yovany Bangura, Pharm-D Clinical Pharmacist [facility] [phone] 06/19/2022, 1:13 PM * Telephone Encounter - Erica Cook - 06/18/2022 2:29 PM EST Did you pend patient's preferred pharmacy and medication before forwarding?yes Pharmacy: [facility] Pending Prescriptions: Disp Refills Lisinopril 10 MG Oral Tablet (Prinivil) 90 Tab*0 Sig: Take 1 Tablet by mouth in the morning. In the morning.. Last Visit: 07/26/2021 (in office), Visit date not found (telemedicine) Next Visit: Visit date not found If no future appointments scheduled, and last appointment is greater than a year ago, please schedule patient for a follow-up appointment Last date the medication was ordered: 03/01/2022 Is this request for a controlled substance?No Urine Drug Screen: Results for orders placed or performed in visit on 11/03/18 TOX SCREEN, URINE, W/ CONFIRMATION Result Value Amphetamine NEGATIVE Benzodiazepines NEGATIVE Cannabinoids NEGATIVE Cocaine Metabolite NEGATIVE HYDROCODONE NEGATIVE Morphine / Codeine NEGATIVE METHADONE METABOLITE NEGATIVE OXYCODONE NEGATIVE TOX COMMENT THE ABOVE SCREENING RESULTS ARE PRESUMPTIVE AND CAN ONLY BE USED FOR MEDICAL PURPOSES. POSITIVE RESULTS REFLEX TO CONFIRMATORY TESTING. Cutoff Concentration Patient Phone Numbers [facility] [phone] Labs: Lab Results Component Value Date/Time CREAT 0.7 02/13/2021 09:00 AM CREAT 0.7 02/08/2020 09:00 AM POTASSIUM 4.5 02/13/2021 09:00 AM POTASSIUM 4.7 02/08/2020 09:00 AM TSH 1.49 02/08/2020 09:00 AM LDLCALC 110 02/13/2021 09:00 AM LDLCALC 158 (H) 02/08/2020 09:00 AM LDLDIRECT NOT APPLICABLE 02/08/2020 09:00 AM ALT 19 02/13/2021 09:00 AM ALT 17 02/08/2020 09:00 AM documented in this encounter Plan of Treatment Upcoming Encounters Date Type Specialty Care Team Description 03/11/2023 Office Visit Family Medicine Carlos Alberto Covington PA-C [address] [place] [phone] Scheduled Orders Name Type Priority Associated Diagnoses Orde r Schedule ALBUMIN / CREATININE RATIO, URINE Lab Routine HTN, goal below 130/80 Expected: 06/28/2022, Expires: 06/28/2023 Health Maintenance Due Date Last Done Comments [...] as of this encounter Visit Diagnoses Diagnosis HTN, goal below 130/80- Primary Unspecified essential hypertension documented in this encounter Care Teams Application Security Specialist Relationship Specialty Start Date End Date Carlos Alberto Covington PA-C [address] [place] [address] [phone] PCP - General Physician Geology Teacher 11/19/22 documented as of this encounter
--- OUTSIDE RECORDS SUMMARY | 2023-07-17 12:05 | External Medical Summary | Summary of Care ---
Author Name Unknown Organization [facility] Address [address] [place] [address] Phone [phone] Care Team Providers Care Global Vp Creative + Content Marketing Name Role Phone Carlos Alberto Covington PA-C Primary Care Provider + [phone] Reason for Visit * Reason Onset Date Comments Medication Refill 03/28/2023 Encounter Details Date Type Department Care Team ([facility] st Contact Info) Description 03/28/2023 Refill Family [facility] [address] [place] [address] Venita Davis MD [address] [place] [phone] Current moderate episode of major depressive disorder without prior episode (HCC) Allergies No known active allergiesdocumented as of this encounter (statuses as of 04/01/2023) Medications Medication Sig Dispensed Refills Start Date [...] 11/21/2022 Active Clobetasol Propionate 0.05 % External SolutionIndication [...] the morning. 90 Tablet 3 04/01/2023 Active Sertraline HCl 25 MG Oral Tablet (Zoloft)Indication s:Current moderate episode of major depressive disorder without prior episode (HCC) Take 1 Tablet by mouth in the morning. 30 Tablet 5 03/05/2023 3 Discontinue d(Refill) documented as of this encounter (statuses as of 04/01/2023) Active Problems Problem Noted Date Diagnosed Date [...] as of this encounter (statuses as of 04/01/2023) Resolved Problems Problem Noted Date Diagnosed Date Resolved Date Screening PSA (prostate specific antigen) 11/10/2018 11/10/2018 documented as of this encounter (statuses as of 04/01/2023) Immunizations Name Administration Dates Next Due COVID-19 mRNA, LNP-s, No Pre serve, 2-Dose Series ([employer]) 02/26/2021,07/08/2020,06/17/2020 Pneumococcal Conjugate Vacci ne, 20-valent ([id number]) 09/11/2022 Seasonal Influenza, Trivalen t, Adjuvanted, 65+ [...] encounter Miscellaneous Notes * Telephone Encounter - Venita Davis MD - 04/01/2023 9:45 AM EST Signed Prescriptions: Disp Refills Sertraline HCl 25 MG Oral Tablet (Zoloft) 90 Tab*3 Sig: Take 1 Tablet by mouth in the morning. Authorizing Provider: VENITA DAVIS * Telephone Encounter - Pilar Nunez LPN - 03/31/2023 11:37 AM EST Pending Prescriptions: Disp Refills Sertraline HCl 25 MG Oral Tablet (Zoloft) 90 Tab*3 Sig: Take 1 Tablet by mouth in the morning. Last Visit: 03/05/2023 (in office), Visit date not found (telemedicine) Next Visit: 05/13/2023 Last date the medication was ordered: 03/05/2023 Patient Active Problem List Diagnosis Code HTN, goal below 130/80 I10 Lumbar radiculopathy M54.16 Lumbar degenerative disc disease M51.36 Possible alcohol use disorder on screening for alcoholism Z13.39 Foot drop, left foot M21.372 Hyponatremia E87.1 Neurologic gait dysfunction R26.9 Current moderate episode of major depressive disorder without prior episode (HCC) F32.1 Alcohol use disorder F10.90 Labs: Lab Results Component Value Date/Time CREATININE - [facility] 0.7 02/13/2021 09:00 AM CREATININE - [facility] 0.7 02/08/2020 09:00 AM Lab Results Component Value Date/Time POTASSIUM - [facility] 4.5 02/13/2021 09:00 AM POTASSIUM - [facility] 4.7 02/08/2020 09:00 AM Lab Results Component Value Date/Time TSH - [facility] 1.49 02/08/2020 09:00 AM Lab Results Component Value Date/Time LDL CHOLESTEROL (CALCULATED) - [facility] 110 02/13/2021 09:00 AM LDL CHOLESTEROL (CALCULATED) - [facility] 86 08/15/2020 09:00 AM LDL CHOLESTEROL (CALCULATED) - [facility] 158 (H) 02/08/2020 09:00 AM LDL CHOLESTEROL (CALCULATED) - [facility] 91 11/03/2018 11:38 AM LDL CHOLESTEROL (DIRECT MEASURE) - [facility] NOT APPLICABLE 02/08/2020 09:00 AM Lab Results Component Value Date/Time ALT - [facility] 19 02/13/2021 09:00 AM ALT - [facility] 17 02/08/2020 09:00 AM Hemoglobin AIC Results: No results found for: "HEMOGLOBIN A1C" * Telephone Encounter - Charisse Ledesma OSA - 03/28/2023 7:52 AM EST Faxxed refill request from pharmacy for 90 day supply of sertraline hcl 25 mg tablet to [facility]. documented in this encounter Plan of Treatment Upcoming Encounters Date Type Department Care Team ([facility] st Contact Info) Description 05/13/2023 10:00 AM EST Office Visit [facility] [address] [place] [phone] Jabari Paz PA-C [address] [place], [place] [phone] Health Maintenance Due Date Last Done Comments [...] major depressive disorder without prior episode (HCC) documented in this encounter Care Teams Global Vp Creative + Content Marketing Relationship Specialty Start Date End Date Carlos Alberto Covington PA-C [address] [place] [phone] PCP - General Physician Assurance Manager Insurance 11/19/22 documented as of this encounter
--- OUTSIDE RECORDS SUMMARY | 2023-07-17 12:05 | External Medical Summary | Summary of Care ---
Author Name Unknown Organization [facility] Address [address] [place] [address] Phone [phone] Care Team Providers Care Stock House Worker Name Role Phone Carlos Alberto Covington PA-C Primary Care Provider [phone] Encounter Details Date Type Department Care Team ([facility] st Contact Info) Description 04/01/2023 Population Health External Data Unspecified Department Allergies [...] the morning. 30 Tablet 5 03/05/2023 Active documented as of this encounter (statuses [...] (Pfizer) 02/26/2021,07/08/2020,06/17/2020 Pneumococcal Conjugate Vacci ne, 20-valent ([id number]) 09/11/2022 Seasonal Influenza, Trivalen t, Adjuvanted, 65+ [...] Upcoming Encounters Date Type Department Care Team ([facility] st Contact Info) Description 05/13/2023 10:00 AM EST [place] [address] [place] [phone] Jabari Paz PA-C [address] [place], [place] [address] [address] Health Maintenance Due Date Last Done Comments [...] filedocumented as of this encounter Care Teams Stock House Worker Relationship Specialty Start Date End Date Carlos Alberto Covington PA-C [address] [place] [address] PCP - General Physician Licensed Journeyman Electrician 11/19/22 documented as of this encounter
--- OUTSIDE RECORDS SUMMARY | 2023-07-17 12:05 | External Medical Summary | Summary of Care ---
Author Name Unknown Organization [facility] Address [address] [place] [address] Phone [phone] Care Team Providers Care Semiconductor Bonder Name Role Phone Carlos Alberto Covington PA-C Primary Care Provider + [phone] Reason for Visit * Reason Onset Date Comments Medication Refill 02/19/2023 Encounter Details Date Type Department Care Team Description 02/19/2023 Telephone [facility] [address] [place] [address] Carlos Alberto Covington PA-C [address] [place] [address] Medication Refill Allergies No known active allergiesdocumented as of this encounter (statuses as of 02/24/2023) Medications Medication Sig Dispensed Refills Start Date [...] as of this encounter (statuses as of 02/24/2023) Active Problems Problem Noted Date Possible alcohol use disorder on screeni ng for alcoholism 11/10/2018 Foot drop, left foot 11/10/2018 Hyponatremia 11/10/2018 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 HTN, goal below 130/80 11/03/2018 Lumbar radiculopathy 11/03/2018 Lumbar degenerative disc disease 019 documented as of this encounter (statuses as of 02/24/2023) Resolved Problems Problem Noted Date Resolved Date Screening PSA (prostate specific antigen) 201811/10/2018 documented as of this encounter (statuses as of 02/24/2023) Immunizations Name Administration Dates Next Due COVID-19 mRNA, LNP-s, No Pre serve, 2-Dose Series ([employer]) 02/26/2021,07/08/2020,06/17/2020 Pneumococcal Conjugate Vacci ne, 20-valent ([id number]) 09/11/2022 Seasonal Influenza, Trivalen t, Adjuvanted, 65+ [...] Telephone Encounter - Kareen Carlson LPN - 02/24/2023 9:22 AM EDT Called and left a detailed message for patient informing him medication was sent in as requested. * Addendum Note - Aristides Davila MD [...] To ordering provider * Telephone Encounter - Lorie Shaikh hardware technician - 02/19/2023 1:23 PM EDT Patient requesting refills for Cephalexin 500 MG Oral Capsule (Keflex . Upon chart review, medication is listed as as of 01/27/2023 . Please advise if you wish to continue this therapy for thepatient. Thank you, Lorie Shaikh Candy Cooker Helper I [facility]) 02/19/2023,1:29 PM documented in this encounter Plan of Treatment Upcoming Encounters Date Type Specialty Care Team Description 03/11/2023 Office Visit Family Medicine Carlos Alberto Covington PA-C [address] [place] [phone] Health Maintenance Due Date Last Done Comments [...] filedocumented as of this encounter Care Teams Semiconductor Bonder Relationship Specialty Start Date End Date Carlos Alberto Covington PA-C [address] [place] [phone] PCP - General Physician Golf Club Head Inspector 11/19/22 documented as of this encounter
--- OUTSIDE RECORDS SUMMARY | 2023-07-17 12:05 | External Medical Summary | Summary of Care ---
Author Name Unknown Organization [facility] Address [address] [place] [address] Phone [phone] Care Team Providers Care Senior Bioinformatics Scientist Name Role Phone Carlos Alberto Covington PA-C Primary Care Provider + [phone] Reason for Visit * Reason Onset Date Comments Med Request 01/17/2023 Encounter Details Date Type Department Care Team Description 01/17/2023 Telephone [facility] [address] [place] [address] Carlos Alberto Covington PA-C [address] [place] [phone] Med Request Allergies No known active allergiesdocumented as of this encounter (statuses as of 01/21/2023) Medications Medication Sig Dispensed Refills Start Date [...] as of this encounter (statuses as of 01/21/2023) Active Problems Problem Noted Date Possible alcohol use disorder on screeni ng for alcoholism 11/10/2018 Foot drop, left foot 11/10/2018 Hyponatremia 11/10/2018 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 HTN, goal below 130/80 11/03/2018 Lumbar radiculopathy 11/03/2018 Lumbar degenerative disc disease 019 documented as of this encounter (statuses as of 01/21/2023) Resolved Problems Problem Noted Date Resolved Date Screening PSA (prostate specific antigen) 201811/10/2018 documented as of this encounter (statuses as of 01/21/2023) Immunizations Name Administration Dates Next Due COVID-19 mRNA, LNP-s, No Pre serve, 2-Dose Series ([employer]) 02/26/2021,07/08/2020,06/17/2020 Pneumococcal Conjugate Vacci ne, 20-valent ([id number]) 09/11/2022 Seasonal Influenza, Trivalen t, Adjuvanted, 65+ [...] Miscellaneous Notes * Telephone Encounter - Maxine Tian CPhT - 01/17/2023 9:18 AM EDT Pt dropped half of the capsules and lost them. Please advise and asking high priority. Patient requesting refills for Cephalexin 500 mg Upon chart review, medication is listed as expiredas of 01/09/2023 . Please advise if you wish to continue this therapy for the patient. Thank you, Maxine Tian Legislative Aide [facility] ([facility]) 01/17/2023,9:19 AM documented in this encounter Plan of Treatment Health Maintenance Due Date Last Done Comments Depression Screening 1967 Albumin/Creatinine Ratio 12/31/1973 Hepatitis C Screening 12/31/1973 Cologuard 12/31/2000 Fecal Occult Blood Test 12/31/2000 Sigmoidoscopy 12/31/2000 Zoster Vaccines (1 of 2) 12/31/2005 Colonoscopy 03/29/2019 03/29/2009 Colorectal Cancer Screening 03/29/2019 AAA Screening 12/31/2020 COVID-19 Vaccine (4 - Pfizer series) 04/23/2021 02/26/2021, 07/08/2020, 06/17/2020 Influenza Vaccine (FLU shot) [...] filedocumented as of this encounter Care Teams Senior Bioinformatics Scientist Relationship Specialty Start Date End Date Carlos Alberto Covington PA-C [address] [place], [place] [address] [phone] PCP - General Physician Outbound Sales Advisor 11/19/22 documented as of this encounter
--- OUTSIDE RECORDS SUMMARY | 2023-07-17 12:05 | External Medical Summary | Summary of Care ---
Author Name Unknown Organization [facility] Address [address] [place] [address] Phone [phone] Care Team Providers Care Terrapin Fisher Name Role Phone Carlos Alberto Covington PA-C Primary Care Provider + [phone] Reason for Visit * Reason Onset Date Comments Med Request 02/19/2023 Encounter Details Date Type Department Care Team Description 02/19/2023 Telephone [facility] [address] [place] [address] Carlos Alberto Covington PA-C [address] [place] [address] Med Request Allergies No known active allergiesdocumented as of this encounter (statuses as of 02/19/2023) Medications Medication Sig Dispensed Refills Start Date [...] as of this encounter (statuses as of 02/19/2023) Active Problems Problem Noted Date Possible alcohol use disorder on screeni ng for alcoholism 11/10/2018 Foot drop, left foot 11/10/2018 Hyponatremia 11/10/2018 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 HTN, goal below 130/80 11/03/2018 Lumbar radiculopathy 11/03/2018 Lumbar degenerative disc disease 019 documented as of this encounter (statuses as of 02/19/2023) Resolved Problems Problem Noted Date Resolved Date Screening PSA (prostate specific antigen) 201811/10/2018 documented as of this encounter (statuses as of 02/19/2023) Immunizations Name Administration Dates Next Due COVID-19 mRNA, LNP-s, No Pre serve, 2-Dose Series ([employer]) 02/26/2021,07/08/2020,06/17/2020 Pneumococcal Conjugate Vacci ne, 20-valent ([id number]) 09/11/2022 Seasonal Influenza, Trivalen t, Adjuvanted, 65+ [...] encounter Miscellaneous Notes * Telephone Encounter - KATIUSKA Rubio - 02/19/2023 1:36 PM EDT Pt calling to request Lisinopril 10 MG Oral Tablet (Prinivil) . Informed pt that RX is available attheir pharmacy. Pt verbalized understanding and stated they will check with their pharmacy regarding this medication. Thank you, Lorie Shaikh Water Treatment Plant Engineer I [facility]) 02/19/2023,1:36 PM documented in this encounter Plan of Treatment Upcoming Encounters Date Type Specialty Care Team Description 03/11/2023 Office Visit Family Medicine Carlos Alberto Covington PA-C [address] [place] [phone] Health Maintenance Due Date Last Done Comments [...] filedocumented as of this encounter Care Teams Terrapin Fisher Relationship Specialty Start Date End Date Carlos Alberto Covington PA-C [address] [place] [phone] PCP - General Physician Tumbler Operator 11/19/22 documented as of this encounter
--- NOTE | 2023-07-17 15:12 | Pulmonary Consultation ---
Date of Consultation July 17, 2023 Assessment & Plan (1) Abnormal CT scan of lung: Plan Impression: 68-year-old male with extensive history of tobacco abuse with abnormal CT of the chest showing cut off of the airway into the right lower lobe as well as some right hilar adenopathy. He also has a cerebellar lesion and it is unclear if these are necessarily related. The CT finding is new compared to a prior CT scan from 2012. Differential would include potential obstructing malignancy, foreign body, compressive atelectasis, or mucoid impaction. Bronchoscopy is recommended. Recommendations: 1. Discussed bronchoscopy with patient including risks and benefits. Would favor proceeding with fiberoptic bronchoscopy with endobronchial ultrasound and evaluation of the right hilar lymph node with transbronchial needle aspiration as well as endobronchial biopsy depending on findings. The patient is agreeable to proceed. Will make n.p.o. after midnight and schedule him tentatively for tomorrow. 2. With regards to the lesion in the brain, it is unclear if this is related or not. The lesion has an unusual appearance for metastatic focus. Would recommend discussion with neurosurgery and neurology. 3. Depending on findings of the bronchoscopy, consideration for outpatient PET scanning may be appropriate. The above recommendations and plan were extensively discussed with the patient. Questions were answered to the best my ability. He expressed understanding and is in agreement with plan as outlined History of Present Illness Attending Physician: Roxane Herrera MD History of Present Illness Asked by hospitalist to evaluate this patient with an abnormal CT scan. History is obtained from discussion with the patient and reviewed the electronic medical record. The patient is a 68-year-old male with a over 10-[id number]-lrke history of tobacco abuse who continues to smoke at the rate of 1 pack/day. Patient does not report a family history of lung disease or lung cancer or a personal history of cancer. He has had about a 30 pound unintentional weight loss over the last 6 months. He states he does not have an appetite. He does have an extensive history of alcohol abuse. He was brought to the emergency room after a fall. This appears to be a presyncopal event. As part of his evaluation he had a chest x-ray performed which revealed some consolidation in the right lower lobe. A CT scan was performed for follow-up which demonstrated a cut off of the airway into the right lower lobe as well as some right hilar adenopathy. MRI of the brain was also performed demonstrating a cerebellar lesion of unclear etiology. The patient does not report any respiratory problems currently. He specifically denies any cough or sputum production. No hemoptysis. No fevers chills or night sweats. Allergies Allergy/AdvReac Type Severity Reaction Status Date / Time No Known Allergies Allergy Unverified 07/16/23 23:53 Home Medications Medication Instructions Recorded Confirmed Type atorvastatin 40 mg tablet 40 mg PO QAM 07/16/23 07/16/23 History clobetasol 0.05 % scalp solution 1 applic topical DAILY PRN .. 07/16/23 07/17/23 History loratadine 10 mg tablet 10 mg PO DAILY 07/16/23 07/17/23 History mupirocin 2 % topical ointment 1 applic topical .2-3XS DAY PRN 07/16/23 07/16/23 History flare up naltrexone 50 mg tablet 50 mg PO QAM 07/16/23 07/16/23 History thiamine HCl (vitamin B1) 100 mg 100 mg PO DAILY 07/16/23 07/16/23 History tablet albuterol sulfate 90 mcg/actuation 2 puff inhalation Q4 PRN Shortness 07/17/23 07/17/23 History aerosol inhaler Of Breath Or Wheezing lisinopril 10 mg tablet 10 mg PO DAILY 07/17/23 07/17/23 History multivitamin 1 tab PO DAILY 07/17/23 07/17/23 History sertraline 25 mg tablet 25 mg PO QAM 07/17/23 07/17/23 History Patient History Medical History Gait instability Idiopathic polyneuropathy Ataxia Hypertension Left leg weakness Numbness Surgical History No pertinent past surgical history Family History Family/Other No problems noted. Mother No problems noted. Father Stroke Social History Smoking Status: Current every day smoker Tobacco Type: Cigarettes Hx Alcohol Use: Yes Alcohol type: wine Alcohol Intake Frequency: 4 or More x per/Week Hx Substance Use: No Preferred Language: [place] Communication Ability: Effective Artificial Glass Eye Maker Required: No Beliefs That Will Affect Care: None Current Living Situation: Spouse Other Information That Helps Us Care for You: No Feels Safe at Home: Yes Safety Concerns: Feels Safe At This Time Assistive Devices: Cane and Walker Review of Systems Review of Systems: Please refer to admission H&P. No additions or deletions Physical Exam Constitutional: + ill appearing and + disheveled; no acu te distress Neck: trachea midline, no thyromegaly Respiratory: normal respiratory effort, lungs clear to auscultation Cardiovascular: RRR, no murmur, no edema Gastrointestinal (Abdomen): normal bowel sounds, soft, nontender, no hepatosplenomegaly Musculoskeletal: Extremities: extremities normal to inspection Skin: Multiple petechiae and ecchymoses noted Neurologic: Nonfocal exam Lymphatic: no cervical lymphadenopathy Results & Data Results & Data Vital Signs (Past 12 Hours) Vital Signs Temp Pulse Pulse Resp BP Pulse Ox O2 Del Method 07/17/23 07:35 76 07/17/23 06:34 36.4 C L 66 18 128/67 94 Room Air 07/17/23 03:31 61 Critical Care Results & Data Vital Signs (Past 12 Hours) Vital Signs Temp Pulse Pulse Resp BP Pulse Ox O2 Del Method 07/17/23 07:35 76 07/17/23 06:34 36.4 C L 66 18 128/67 94 Room Air 07/17/23 03:31 61 Lab & Micro Results (Past 24 Hours) RBC 3.96 M/uL (4.70-6.10) L 07/17/23 WBC 5.76 K/ul (4.8-10.8) 07/17/23 Hgb 13.1 g/dl (14.0-18.0) L 07/17/23 Hct 38.4 % (42.0-52.0) L 07/17/23 MCV 97.0 fL (80.0-100.0) 07/17/23 MCH 33.1 pg (25.0-34.0) 07/17/23 MCHC 34.1 g/dL (32.0-36.0) 07/17/23 RDW Standard Deviation 43.0 fL (36.4-46.3) 07/17/23 RDW Coefficient of Variation 11.9 % (11.5-14.5) 07/17/23 Plt Count 263 K/uL (130-400) 07/17/23 MPV 8.4 fL (9.4-12.4) L 07/17/23 Neutrophils (%) (Auto) 60.3 % 07/17/23 Lymphocytes (%) (Auto) 17.7 % 07/17/23 Monocytes # (Auto) 0.60 K/uL (0.11-0.59) H 07/17/23 Eosinophils # (Auto) 0.55 K/uL (0.00-0.50) H 07/17/23 Immature Granulocyte % (Auto) 0.5 % 07/17/23 Neutrophils # (Auto) 3.47 K/uL (1.40-6.50) 07/17/23 Lymphocytes # (Auto) 1.02 K/uL (1.20-3.40) L 07/17/23 Monocytes # (Auto) 0.60 K/uL (0.11-0.59) H 07/17/23 Eosinophils # (Auto) 0.55 K/uL (0.00-0.50) H 07/17/23 Basophils # (Auto) 0.09 K/uL (0.00-0.20) 07/17/23 Immature Granulocyte # (Auto) 0.03 K/uL (0.01-0.20) 4 Na 133 mmol/L (136-145) L 07/17/23 K 3.7 mmol/L (3.5-5.1) 07/17/23 Cl 103 mmol/L (98-107) 07/17/23 CO2 22 mmol/L (21-32) 07/17/23 Anion Gap 8 (3-11) 07/17/23 BUN 10 mg/dl (6-23) 07/17/23 Creatinine 0.51 mg/dl (0.6-1.4) L 07/17/23 Estimated GFR ( Amer) 128.9 ml/min 07/17/23 Estimated GFR (Non-Af Amer) 111.2 ml/min 07/17/23 BUN/Creatinine Ratio 19.6 (10-20) 07/17/23 Glu 97 mg/dl (70-99(Fasting)) 07/17/23 Ca 8.2 mg/dl (8.6-10.3) L 07/17/23 Phosphorus Level 3.4 mg/dl (2.5-4.9) 07/16/23 Total Bilirubin 0.5 mg/dl (0.2-1.0) 07/17/23 AST 20 U/L (13-39) 07/17/23 ALT 8 U/L (7-52) 07/17/23 Alkaline Phosphatase 68 U/L (34-104) 07/17/23 TP 6.0 gm/dl (6.0-8.3) 07/17/23 Albumin 3.5 gm/dl (3.4-5.0) 07/17/23 Globulin 2.5 gm/dl (2.5-4.0) 07/17/23 Albumin/Globulin Ratio 1.4 (0.9-2) 07/17/23 Mg 1.7 mg/dl (1.7-2.4) 07/17/23 03:41 Calcium Level 8.2 mg/dl (8.6-10.3) L 07/17/23 03:41 Prothromb Time International Ratio 0.9 (0.9-1.1) 07/16/23 20:4 0 Diagnostic Findings (Past 24 Hours) Cervical Spine CT 07/16/23 19:10 Exam(s): CT C SPINE EXAM: CT Cervical Spine Without Intravenous Contrast CLINICAL HISTORY: Reason for exam: fall, struck head/neck. TECHNIQUE: Axial computed tomography images of the cervical spine without intravenous contrast. CTDI is 24.17 mGy and DLP is 547.09 mGy-cm. Automated exposure control was utilized for the study. A dose lowering technique was utilized adhering to the principles of ALARA. COMPARISON: No relevant prior studies available. FINDINGS: The vertebral body heights are maintained. The craniocervical junction is intact. The atlanto-dens interval is maintained. The dens is intact. There is no spondylolisthesis. Multilevel cervical spondylosis and degenerative disc disease. Straightening of the cervical lordosis. The unenhanced neck soft tissues are grossly unremarkable. The visualized lung apices are grossly clear. IMPRESSION: No acute fracture or subluxation of the cervical spine. Electronically signed by: Bernard Nice MD 07/16/23 20:25 PM Chest X-Ray 07/16/23 19:10 XR chest 1V portable CLINICAL HISTORY: fall from bed TECHNIQUE: Single frontal radiograph of the chest was obtained. Comparison: Comparison is made to chest radiograph 05/05/2022 FINDINGS: No lines and tubes are seen. Cardiac silhouette is unremarkable, there is prominence of the right mediastinum which may represent pulmonary vasculature, less likely underlying mass. Opacity in the medial right lung base with rightward mediastinal shift may represent right lower lobe are collapse. No evidence of pleural effusion or pneumothorax. IMPRESSION: Likely right lower lobar collapse. CT chest is recommended to exclude obstructing mass. ACT 112: Positive. There are findings on this exam that require communication between the performing entity and the patient following Patient Test Result Information Act ([place] Act 112) guidelines. Electronically signed by: Wai Giang M.D. 07/17/2023 7:[address] 07/16/23 19:10 Exam(s): CT HEAD Without Contrast EXAM: CT Head Without Intravenous Contrast CLINICAL HISTORY: Reason for exam: fall, struck head/neck. TECHNIQUE: Axial computed tomography images of the head/brain without intravenous contrast. CTDI is 37.01 mGy and DLP is 624.41 mGy-cm. Automated exposure control was utilized for the study. A dose lowering technique was utilized adhering to the principles of ALARA. COMPARISON: Head CT May 05, 2022. FINDINGS: No acute intracranial hemorrhage. No midline shift. Low attenuation in the LEFT cerebellum, concerning for old infarct. This area measures approximately 4.4 x 2.6 cm each. If there is no history of old infarct, recommend MRI to reevaluate and exclude a possible mass. Age-related cerebral volume loss. Periventricular and subcortical white matter hypoattenuation, consistent with chronic microangiopathy. The visualized orbits appear grossly unremarkable. The calvarium is intact. The visualized paranasal sinuses and mastoid air cells are grossly clear. IMPRESSION: Low attenuation in the LEFT cerebellum, concerning for old infarct. This area measures approximately 4.4 x 2.6 cm each. If there is no history of old infarct, recommend MRI to reevaluate and exclude a possible mass. No acute intracranial hemorrhage. Electronically signed by: Bernard Nice MD 07/16/23 20:24 PM Brain MRI 07/17/23 07:43 MR brain wo/w con CLINICAL HISTORY: L cerebellar abnormality, ataxia TECHNIQUE: Multiplanar and multisequence MR images of the brain were obtained prior to and following administration of gadolinium contrast. Comparison: Comparison is made to CT head 07/16/2023, CT head 05/05/2022, MRI brain 11/29/2017 FINDINGS: No abnormal restricted diffusion is identified. The white matter is unrem arkable. Ex vacuo ventriculomegaly and sulcal enlargement is noted compatible with diffuse volume loss. There is a left cerebellar mass measuring 34 x 28 x 26 mm with rim enhancement. It is T2 hyperintense and T1 hypointense and may contain a mural nodule in the superior anterior surface. There is mild mass effect with partial effacement of the fourth ventricle. There is no evidence of acute intraparenchymal hemorrhage. No extra axial fluid collections are seen. The corpus callosum, pituitary gland, and cerebellar tonsils appear grossly unremarkable. Flow voids of the major intracranial arterial vessels are identified. The imaged portions of the paranasal sinuses, mastoid air cells, and orbits are unremarkable. IMPRESSION: Enhancing multiloculated cystic type lesion with minimal surrounding vasogenic edema. 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 This is similar to appearance on prior CT however is new from MRI of [address] head of 2021. ACT 112: Positive. There are findings on this exam that require communication b etween the performing entity and the patient following Patient Test Result Information Act ([place] Act 112) guidelines. Electronically signed by: Wai Giang M.D. 07/17/2023 10:[address] 07/17/23 07:[address] WITH CONTRAST CT DOSE: 468.48 mGy.cm HISTORY: Collapse of the right lower lobe RLL collapse, possible mass TECHNIQUE: Multiaxial CT images of the chest were performed following the IV administration of 94 cc of Optiray. A dose lowering technique was utilized adhering to the principles of ALARA. COMPARISON: Chest radiograph 07/16/2023, thoracic spine MRI 11/30/2017, CT chest 05/10/2012 FINDINGS: Unremarkable thyroid. Borderline enlarged subcarinal and right hilar lymph nodes measure up to 10 mm. Heart is normal in size without pericardial effusion. Extensive coronary artery calcifications. Atherosclerosis of the thoracic aorta. Ectasia of the ascending portion measures up to 3.9 cm. Patency of the imaged great vessels. No pulmonary emboli identified. Tracheobronchial secretions are noted. There is abrupt cut off/opacification of the right lower lobe bronchus with complete collapse of the right lower lobe demonstrating heterogeneous attenuation. Subcentimeter calcifications are noted adjacent to the right lower lobe bronchus. Moderate pulmonary emphysema is biapical pleural-parenchymal scarring. Bronchial wall thickening with multifocal mucus plugging. Mild subpleural nodular densities of the right lung apex are similar prior likely represents scarring. No acute upper abdominal abnormality. Contrast noted within the renal collecting systems. There is mid to distal esophageal wall thickening suggestive of esophagitis with small hiatal hernia. L1 compression deformity with 5 mm retropulsion is new from 2018 and likely chronic. Degenerative changes of the shoulders and spine. IMPRESSION: 1. There is abrupt cut off/opacification of the right lower lobe bronchus with complete collapse of the right lower lobe demonstrating heterogeneous attenuation. Follow-up with pulmonology consultation and bronchoscopy is needed in order to exclude an obstructing endobronchial mass. 2. Borderline enlarged subcarinal and right hilar lymph nodes. 3. Emphysema with bronchitis and tracheobronchial secretions. 4. Biapical pleural parenchymal scarring redemonstrated. 5. Moderate L1 compression deformity with 5 mm retropulsion is new from 2018, likely chronic. ACT 112: Positive. There are findings on this exam that require communication between the performing entity and the patient following Patient Test Result Information Act ([place] Act 112) guidelines. Electronically signed by: Tommy Gallegos M.D. 07/17/2023 11:19 AM I & O Totals 24 Hours 07/16/23 07/17/23 07/18/23 06:59 06:59 06:59 Intake Total 1011.2 / 1011.2 913.333 / 913.333 Balance 1011.2 / 1011.2 913.333 / 913.333 Cumulative 07/16/23 18:26 thru 07/17/23 11:24 Intake Total 4.533 Balance 1924.533 RT Ventilator Mngmt (Last Documented) Ventilator Ordered Settings Respiratory Rate 18 07/17/23 06:34 Ventilator - PT Measurements Respiratory Rate 18 PG Care Time/CCT Total # of Minutes Spent Total Time Spent with Patient: Total time spent is greater than 50% in coordination of care (as documented) at patient's floor/unit and/or counseling patient: Coding Level of Care Code 05871 INT INP/OBS CARE 3/75MIN Diagnoses Abnormal CT scan of lung R91.8
--- NOTE | 2023-07-17 17:00 | Electrocardiogram Report ---
Test Reason : Blood Pressure : / mmHG Vent. Rate : 061 BPM Atrial Rate : 061 BPM P-R Int : 132 ms QRS Dur : 076 ms QT Int : 440 ms P-R-T Axes : 073 065 076 degrees QTc Int : 442 ms Normal sinus rhythm Normal ECG When compared with ECG of 05-MAY-2022 17:07, Vent. rate has decreased BY 41 BPM Confirmed by Fox Avila ([id number]) on 07/17/2023 4:59:55 PM Referred By: REFERRED SELF Confirmed By:Fox Avila
--- NOTE | 2023-07-17 20:20 | Billing Data ---
Date of Service July 17, 2023 Coding Level of Care Code 75734 INT INP/OBS CARE
[2023-07-17] MEDS ORDERED: ALBUTEROL HFA 8 GM INHALER INH PRN (21:42)
[2023-07-17] MEDS: NICOTINE 14 MG/24 HR PATCH TD SCH (22:15)
[2023-07-18 06:24] LABS: Basophils # (auto) 0.06 K/uL (0.00-0.20); Basophils % (auto) 1.1 %; Eosinophils # (auto) 0.82 K/uL (0.00-0.50); Eosinophils % (auto) 14.5 %; Hematocrit (blood only) 37.2 % (42.0-52.0); Hemoglobin 13.1 g/dl (14.0-18.0); Immature Granulocytes # (auto) 0.02 K/uL (0.01-0.20); Immature Granulocytes % (auto) 0.4 %; Lymphocytes # (auto) 1.12 K/uL (1.20-3.40); Lymphocytes % (auto) 19.8 %; Mean Corpuscular Hemoglobin 33.3 pg (25.0-34.0); Mean Corpuscular Hgb Conc 35.2 g/dL (32.0-36.0); Mean Corpuscular Volume 94.7 fL (80.0-100.0); Mean Platelet Volume 8.7 fL (9.4-12.4); Monocytes # (auto) 0.55 K/uL (0.11-0.59); Monocytes % (auto) 9.7 %; Neutrophils # (auto) 3.09 K/uL (1.40-6.50); Neutrophils % (auto) 54.5 %; Platelet Count 258 K/uL (130-400); RDW Coefficient of Variation 11.9 % (11.5-14.5); RDW Standard Deviation 41.5 fL (36.4-46.3); Red Blood Count 3.93 M/uL (4.70-6.10); White Blood Count 5.66 K/ul (4.8-10.8)
[2023-07-18 06:28] LABS: Albumin Globulin Ratio 1.4 (0.9-2); Albumin Level 3.3 gm/dl (3.4-5.0); BUN Creatinine Ratio 28.6 (10-20); Bilirubin,Total 0.8 mg/dl (0.2-1.0); Calcium 8.2 mg/dl (8.6-10.3); Est GFR (African American) 139.6 ml/min; Est GFR (Non-African American) 120.5 ml/min; Globulin 2.3 gm/dl (2.5-4.0); Potassium 3.6 mmol/L (3.5-5.1); Total Protein 5.6 gm/dl (6.0-8.3)
[2023-07-18] MEDS: CYANOCOBALAMIN (B-12) 500 MCG TABLET PO SCH (09:15)
--- NOTE | 2023-07-18 09:48 | Pulmonology Progress Note ---
Date of Service July 18, 2023 Assessment & Plan (1) Abnormal CT scan of lung: Plan Impression: 68-year-old male with extensive history of tobacco abuse with abnormal CT of the chest showing cut off of the airway into the right lower lobe as well as some right hilar adenopathy. He also has a cerebellar lesion and it is unclear if these are necessarily related. The CT finding is new compared to a prior CT scan from 2012. Differential would include potential obstructing malignancy, foreign body, compressive atelectasis, or mucoid impaction. N.p.o. for bronchoscopy today Recommendations: 1. Abnormal CT scan: Await bronchoscopy with endobronchial ultrasound potential transbronchial needle aspiration of mediastinal adenopathy is identified. 2. With regards to the lesion in the brain, it is unclear if this is related or not. The lesion has an unusual appearance for metastatic focus. Would recommend discussion with neurosurgery and neurology. 3. Depending on findings of the bronchoscopy, consideration for outpatient PET scanning may be appropriate. Admission and Anticipated Discharge Date Admission Date: July 16, 2023 Subjective Patient seen and examined. EMR reviewed. No acute events overnight. Patient is n.p.o. for bronchoscopy. He is seen in the bronchoscopy suite prior to undergoing the procedure Review of Systems 2 Review of Systems: All systems reviewed & are unremarkable except as noted in Subjective Physical Exam 2 Constitutional: + ill appearing and + disheveled; no acu te distress Neck: trachea midline, no thyromegaly Respiratory: normal respiratory effort, lungs clear to auscultation Cardiovascular: RRR, no murmur, no edema Gastrointestinal (Abdomen): normal bowel sounds, soft, nontender, no hepatosplenomegaly Musculoskeletal: Extremities: extremities normal to inspection Lymphatic: no cervical lymphadenopathy Results & Data Results & Data Vital Signs (Past 12 Hours) Vital Signs Temp Pulse Pulse Resp BP BP Pulse Ox 07/18/23 09:37 57 L 18 176/92 H 100 07/18/23 07:33 36.8 C 70 16 164/89 H 96 07/18/23 03:00 36.6 C 61 16 133/72 96 07/17/23 23:00 36.7 C 82 17 150/82 H 98 07/17/23 22:57 O2 Del Method 07/18/23 09:37 Aerosol Mask 07/18/23 07:33 Room Air 07/18/23 03:00 Nasal Cannula 07/17/23 23:00 Room Air 07/17/23 22:57 Room Air Laboratory Results 07/18/23 05:24 07/18/23 05:24 PG Care Time/CCT Total # of Minutes Spent Total Time Spent with Patient: Total time spent is greater than 50% in coordination of care (as documented) at patient's floor/unit and/or counseling patient: Coding Level of Care Code 94840 SUB INP/OBS CARE 2/35MIN Diagnoses Abnormal CT scan of lung R91.8
--- NOTE | 2023-07-18 09:55 | Pre Anesthesia Assessment ---
Date of Service July 18, 2023 Pre Sedation Assessment Vital Signs Temp Pulse Pulse Resp BP BP Pulse Ox 07/18/23 09:37 57 L 18 176/92 H 100 07/18/23 07:33 36.8 C 70 16 164/89 H 96 07/18/23 03:00 36.6 C 61 16 133/72 96 07/17/23 23:00 36.7 C 82 17 150/82 H 98 07/17/23 22:57 07/17/23 21:00 91 H 07/17/23 19:00 36.8 C 66 16 152/89 H 96 07/17/23 18:07 07/17/23 18:03 36.8 C 68 16 171/85 H 94 07/17/23 16:00 69 16 156/87 H 96 07/17/23 15:31 66 18 07/17/23 15:31 141/79 H 07/17/23 15:30 68 15 07/17/23 15:01 156/98 H 07/17/23 15:01 67 19 07/17/23 15:00 80 16 07/17/23 14:30 133/77 07/17/23 14:30 69 16 07/17/23 14:00 114/75 07/17/23 14:00 75 16 07/17/23 13:30 129/81 07/17/23 13:30 80 17 07/17/23 13:00 170/106 H 07/17/23 13:00 89 19 O2 Del Method 07/18/23 09:37 Aerosol Mask 07/18/23 07:33 Room Air 07/18/23 03:00 Nasal Cannula 07/17/23 23:00 Room Air 07/17/23 22:57 Room Air 07/17/23 21:00 07/17/23 19:00 Room Air 07/17/23 18:07 Room Air 07/17/23 18:03 Room Air 07/17/23 16:00 07/17/23 15:31 07/17/23 15:31 07/17/23 15:30 07/17/23 15:01 07/17/23 15:01 07/17/23 15:00 07/17/23 14:30 07/17/23 14:30 07/17/23 14:00 07/17/23 14:00 07/17/23 13:30 07/17/23 13:30 07/17/23 13:00 07/17/23 13:00 Pre-Sedation Airway Assessment Smoking Status: Current every day smoker Hx Sleep Apnea: No Short, Thick Neck: No Thyromental Distance: > or= 3.5 Finger Breadths Oral Cavity: + Dentures Mallampati Class: IV ASA: ASA4 Notes The planned sedation has been discussed with the patient. Informed Consent was obtained. I have identified the patient, determined the appropriateness of sedation and have assessed the patient immediately prior to the procedure. All medicine(s) and interventions are by my order.
[2023-07-18] MEDS: MIDAZOLAM HCL 5 MG/ML 1 ML VIAL ONE ×2 (10:14→10:22)
[2023-07-18] MEDS: fentaNYL citrate PF 100 MCG/2 ML VIAL ONE ×2 (10:14)
--- NOTE | 2023-07-18 10:29 | Post Anesthesia Assessment ---
Date of Service July 18, 2023 Post Sedation Assessment Vital Signs Temp Pulse Pulse Resp BP BP Pulse Ox 07/18/23 10:20 98 H 18 128/96 97 07/18/23 10:15 98 H 16 134/88 98 07/18/23 10:10 101 H 16 138/83 98 07/18/23 10:05 92 H 16 158/98 H 98 07/18/23 10:00 107 H 20 147/115 H 100 07/18/23 09:55 78 18 148/91 H 100 07/18/23 09:37 57 L 18 176/92 H 100 07/18/23 07:33 36.8 C 70 16 164/89 H 96 07/18/23 03:00 36.6 C 61 16 133/72 96 07/17/23 23:00 36.7 C 82 17 150/82 H 98 07/17/23 22:57 07/17/23 21:00 91 H 07/17/23 19:00 36.8 C 66 16 152/89 H 96 07/17/23 18:07 07/17/23 18:03 36.8 C 68 16 171/85 H 94 07/17/23 16:00 69 16 156/87 H 96 07/17/23 15:31 66 18 07/17/23 15:31 141/79 H 07/17/23 15:30 68 15 07/17/23 15:01 156/98 H 07/17/23 15:01 67 19 07/17/23 15:00 80 16 07/17/23 14:30 133/77 07/17/23 14:30 69 16 07/17/23 14:00 114/75 07/17/23 14:00 75 16 07/17/23 13:30 129/81 07/17/23 13:30 80 17 07/17/23 13:00 170/106 H 07/17/23 13:00 89 19 O2 Del Method 07/18/23 10:20 Oxymask 07/18/23 10:15 Oxymask 07/18/23 10:10 Oxymask 07/18/23 10:05 Oxymask 07/18/23 10:00 Oxymask 07/18/23 09:55 Oxymask 07/18/23 09:37 Aerosol Mask 07/18/23 07:33 Room Air 07/18/23 03:00 Nasal Cannula 07/17/23 23:00 Room Air 07/17/23 22:57 Room Air 07/17/23 21:00 07/17/23 19:00 Room Air 07/17/23 18:07 Room Air 07/17/23 18:03 Room Air 07/17/23 16:00 07/17/23 15:31 07/17/23 15:31 07/17/23 15:30 07/17/23 15:01 07/17/23 15:01 07/17/23 15:00 07/17/23 14:30 07/17/23 14:30 07/17/23 14:00 07/17/23 14:00 07/17/23 13:30 07/17/23 13:30 07/17/23 13:00 07/17/23 13:00 Discharge Sedation Level of Care: Fast Track Phase II Post Sedation Plan On clinical assessment, the patient appears to have tolerated the sedation without complications. Patient is recovering as anticipated. Patient will continue to be monitored by nursing and may be discharged when sedation discharge criteria are met per below protocol. Upon Completions of procedure up to 15 minutes continue every 5 minute vital signs and the P.A.R. score; then discharge to a Phase I or Fast Track to Phase II per the following guidelines: * Discharge Patient to appropriate Phase II area if PAR is 8 or greater or return to pre- procedure baseline. The post - procedure orders will be as directed. * If PAR score is less than 8 or not return to pre-procedure baseline then patient will follow Phase I monitoring till PAR is reached for Phase II. The Phase I may be done in procedure room or may call to secure a Phase I area. * If naloxone or flumazenil are used for reversal, hold in Phase I for continued monitoring from when last reversal dose was given for a minimum of 60 minutes or longer pending the nurse and/or physician discretion of patient condition before discharge to Phase II. Please call the Sedation Physician to re-evaluate and complete post-note for discharge to Phase II area. Do NOT discharge from procedure sedation or Phase 1 until post- sedation evaluation note is complete by procedure /sedation MD Sedation Discharge Instructions to be given to the patient at discharge to home.
--- NOTE | 2023-07-18 10:38 | Procedure Note ---
Procedure Note: Bronchoscopy Procedure Procedure: Fiberoptic bronchoscopy Endobronchial ultrasound evaluation during bronchoscopy Endobronchial ultrasound with transbronchial needle aspiration of lymph nodes, single station Endobronchial brushing Endobronchial biopsy Conscious sedation Provider: Daniel Antonio MD Consent: Signed by patient and timeout verified prior to procedure. Sedation start:958 Sedation end:1023 Conscious sedation: 300 mcg fentanyl, 12 mg Versed, topical lidocaine per RT protocol Indication: Abnormal CT scan Estimated blood loss: 5 mL Procedure: Patient was brought to the bronchoscopy suite. Consent was verified. Appropriate radiographic studies had been reviewed prior to the procedure. Standard monitoring was applied. Oxygen was administered. After topical anesthesia of the airways per respiratory therapy protocol, the fiberoptic scope was advanced through the oropharynx via the bite-block. Oropharynx was unremarkable. Vocal cords were visualized and were normal in function and appeared. Topical anesthesia of the cords was achieved with instillation of lidocaine through the scope. Scope was then passed through the vocal cords. The trachea was midline. Main tee was sharp. Anesthesia of the lower airways was achieved with instillation of lidocaine through the scope. A sequential and systematic examination of the lower airways was conducted. Left-sided airways were widely patent with normal anatomic configuration and the mucosa appeared normal. The right mainstem bronchus was patent as was the takeoff to the right upper lobe. In the distal bronchus intermedius occluding the lower lobe takeoff on the right, there was an exophytic friable endobronchial mass. I was able to navigate around this although it did occlude about 60% of the endobronchial lumen. The takeoff to the right middle lobe was patent however the right lower lobe was completely opacified by this mass. Topical epinephrine was applied in anticipation of biopsy and the scope was removed. The endobronchial ultrasound was then advanced through the bite-block in through the vocal cords. A brief survey of mediastinal lymph node stations was conducted. A small subcarinal node was identified but it measured less than 5 mm. The scope was directed to the 4R station where no adenopathy was savage ntified. There was a lymph node within the 10 R station which was biopsied using a 21-gauge needle. Show 3 passes with 10-15 swipes per pass were taken. Rapid onsite cytologic evaluation was available and confirmed cellularity. The endobronchial ultrasound was then removed. The fiberoptic scope was readvanced through the oropharynx via the bite-block. There was some bleeding associated with the EBUS TBNA. Additional chilled saline was applied which resulted in clearance of the airway. I was able to visualize the exophytic mass within the distal bronchus intermedius. Brushings were taken with 1 slide which demonstrated non-small cell carcinoma. An additional 4 biopsies using biopsy forceps were taken of this mass. Bleeding was controlled with instillation of chilled saline. The scope was then withdrawn to the level of the tee and hemostasis confirmed The bronchoscope was then removed from the airways. The patient tolerated the procedure well without obvious complication. Patient was returned to the recovery room. Impression: 1. Exophytic mass in the distal bronchus intermedius occluding the right lower lobe bronchus with associated right hilar adenopathy with preliminary path suggestive of non-small cell carcinoma. 2. Likely postobstructive pneumonia. Recommend 14 days antimicrobial therapy. The patient will be initiated on Unasyn and can be transitioned to Augmentin in the outpatient setting. [facility] [place] Codes (Charges) Pulmonary/Thoracic Procedure 1: Pulmonary and Thoracic: 87765 Bronchoscopy, w/EBUS 1 or 2 mediastinal Procedure 2: Pulmonary and Thoracic: 67869 Bronchoscopy w bronchial or endobronchial bx Procedure 3: Pulmonary and Thoracic: 22097 Dx bronchoscopy/brush Sedation/Anesthesia Procedure 4: Sedation/Anesthesia: 16538 Mod Sedation by the same physician;Init15 Min Child Age 5 & Up Procedure 5: Sedation/Anesthesia: 64318 Mod Sedation by the same physician; Ea [id number] Minutes Total Sedation Time (minutes): 28
[2023-07-18] MEDS: AMPICILLIN/SULBACTAM SOD 3,000 MG in SODIUM CHLOR 0.9% MINI-B 100 ML IV SCH (12:57)
--- NOTE | 2023-07-18 14:29 | Discharge Summary ---
Date of Service July 18, 2023 Admission HPI Per Admitting Provider Patient is a 68-year-old male with past medical history remarkable for alcohol abuse disorder, gait imbalance with use of walker at baseline, idiopathic polyneuropathy, and hypertension who arrived to the emergency department due to a fall. Patient was lying in his bed and when attempting to get out of bed patient felt dizzy and fell and hit his head on the bedside table, but denies any loss of consciousness. Patient's then called an ambulance to take patient to the hospital. Patient has gait imbalance at baseline he uses a walker to ambulate around his home, but notes worsening imbalance in the last 3 days. Of note patient was last seen in the hospital in 2018 due to concerns of left distal leg weakness associated with numbness of the left foot. At the time head and spine MRI were performed to see if there was any compression or any other cause for his left lower extremity numbness/weakness, but ultimately these did not show any findings that would be consistent with this clinical manifestation.patient was then seen by orthopedics at this time and they felt that his left leg symptoms were likely related to transient peripheral neuropathy (peroneal nerve injury) and at the time of discharge his left leg symptoms were essentially resolved. Patient was discharged with gabapentin 3 times a day and advised to have close follow-up with his PCP. Today patient refers that he is still having left leg weakness/numbness which causes his gait and balance. He states that he is able to walk without difficulty when walking forward and using his walker, but feels concerns when he has to turn around due to fear of falling. He denies increased consumption of alcoholic beverages in these last 3 days and states that he has consumed about the same amount that he has in the past. However, after calling patient's (Haile), he states that the patient has been consuming alcoholic beverages since he wakes up in the morning until he goes to sleep at night. He also states that the patient has seemed more depressed and quiet than usual, and makes note that the patient is " never sober". On evaluation at bedside, patient was noted to have multiple scabs on his face, his back, and his upper extremities. No scabbing lesions noted in patient's abdomen or bilateral lower extremities. On questioning, patient states that he got the scabs from excessive scratching because of persistent pruritus in those areas that are not limited to any particular time of day. His has not had similar symptoms of pruritus/excessive scratching. Patient cannot recall any recent changes that could have caused his excessive scratching. Patient is awake alert and oriented in all spheres, afebrile, and in no acute distress. He denies having any chest pain, shortness of breath, fevers, chills, nausea, vomiting, diarrhea, headaches, malaise, or any other symptoms. ED Course: Patient was treated with banana bag, scabs and wounds were cleaned and dressed Labs/Imaging: CBC without leukocytosis, hemoglobin stable at 14.9, platelets stable at 292, coagulation studies with INR of 0.9, CMP showing hyponatremia with sodium level of 132, no other electrolyte abnormalities, renal markers within reference range, glucose of 100, magnesium level of 1.8, phosphorus of 3.4, LFTs normal C-spine CT without acute fractures or subluxation, head CT without any intracranial hemorrhage but showing low-attenuation of the left cerebellum that are concerning for an old infarct (area measures approximately 4.4 x 2.6 cm). Patient states that he has no history of any strokes. Principal Diagnosis Ataxia, left cerebellar brain mass, right lower lobe non-small cell lung cancer Discharge Exam PHYSICAL EXAMINATION Last 24h vital signs reviewed, see documentation in flowsheet General: comfortable appearing, no distress, chronically ill appearing HEENT: Normocephalic, atraumatic, pupils round and equal, sclerae anicteric, no conjunctival injection, moist mucus membranes multiple lesions that are all excoriated and scabbed on head and posterior neck / shoulders, no vesicles, no generalized rash Lungs: Normal respiratory effort. Clear to auscultation bilaterally except absent R base. No RRW Heart: Regular rate and rhythm, no murmurs. No JVD Abdomen: Soft, nontender, nondistended. Bowel sounds present. Extremities: Warm, dry, well-perfused. No extremity edema. Sarcopenia - MM wasting arms/legs and bitemporal wasting Skin: numerous scattered old ecchymoses and skin tears, picker and sorter load and unload lesions all over head/neck with scabs Neuro: Alert and oriented x 4, face symmetric, moves 4 extremities well, not tremulus Psych: Normal affect and behavior Discharge Data Allergies Allergy/AdvReac Type Severity Reaction Status Date / Time No Known Allergies Allergy Unverified 07/16/23 23:53 Consultations 07/16/23 22:31 ED Decision to Admit Stat 07/17/23 14:32 Consult Pulmonology Routine Procedures Performed Operation Date: 07/18/23 10:00 Actual Procedures p Endobronchial Ultrasound (EBUS) - Daniel Antonio MD Ordered Studies 07/16/23 19:10 CT cervical spine wo con Stat CT head/brain wo con Stat 07/17/23 07:43 CT chest diagnostic w con Urgent MR brain wo/w con Urgent Cervical Spine CT 07/16/23 19:10 Exam(s): CT C SPINE EXAM: CT Cervical Spine Without Intravenous Contrast CLINICAL HISTORY: Reason for exam: fall, struck head/neck. TECHNIQUE: Axial computed tomography images of the cervical spine without intravenous contrast. CTDI is 24.17 mGy and DLP is 547.09 mGy-cm. Automated exposure control was utilized for the study. A dose lowering technique was utilized adhering to the principles of ALARA. COMPARISON: No relevant prior studies available. FINDINGS: The vertebral body heights are maintained. The craniocervical junction is intact. The atlanto-dens interval is maintained. The dens is intact. There is no spondylolisthesis. Multilevel cervical spondylosis and degenerative disc disease. Straightening of the cervical lordosis. The unenhanced neck soft tissues are grossly unremarkable. The visualized lung apices are grossly clear. IMPRESSION: No acute fracture or subluxation of the cervical spine. Electronically signed by: Bernard Nice MD 07/16/23 20:25 PM Chest X-Ray 07/16/23 19:10 XR chest 1V portable CLINICAL HISTORY: fall from bed TECHNIQUE: Single frontal radiograph of the chest was obtained. Comparison: Comparison is made to chest radiograph 05/05/2022 FINDINGS: No lines and tubes are seen. Cardiac silhouette is unremarkable, there is prominence of the right mediastinum which may represent pulmonary vasculature, less likely underlying mass. Opacity in the medial right lung base with rightward mediastinal shift may represent right lower lobe are collapse. No evidence of pleural effusion or pneumothorax. IMPRESSION: Likely right lower lobar collapse. CT chest is recommended to exclude obstructing mass. ACT 112: Positive. There are findings on this exam that require communication between the performing entity and the patient following Patient Test Result Information Act ([place] Act 112) guidelines. Electronically signed by: Wai Giang M.D. 07/17/2023 7:[address] 07/16/23 19:10 Exam(s): CT HEAD Without Contrast EXAM: CT Head Without Intravenous Contrast CLINICAL HISTORY: Reason for exam: fall, struck head/neck. TECHNIQUE: Axial computed tomography images of the head/brain without intravenous contrast. CTDI is 37.01 mGy and DLP is 624.41 mGy-cm. Automated exposure control was utilized for the study. A dose lowering technique was utilized adhering to the principles of ALARA. COMPARISON: Head CT May 05, 2022. FINDINGS: No acute intracranial hemorrhage. No midline shift. Low attenuation in the LEFT cerebellum, concerning for old infarct. This area measures approximately 4.4 x 2.6 cm each. If there is no history of old infarct, recommend MRI to reevaluate and exclude a possible mass. Age-related cerebral volume loss. Periventricular and subcortical white matter hypoattenuation, consistent with chronic microangiopathy. The visualized orbits appear grossly unremarkable. The calvarium is intact. The visualized paranasal sinuses and mastoid air cells are grossly clear. IMPRESSION: Low attenuation in the LEFT cerebellum, concerning for old infarct. This area measures approximately 4.4 x 2.6 cm each. If there is no history of old infarct, recommend MRI to reevaluate and exclude a possible mass. No acute intracranial hemorrhage. Electronically signed by: Bernard Nice MD 07/16/23 20:24 PM Brain MRI 07/17/23 07:43 MR brain wo/w con CLINICAL HISTORY: L cerebellar abnormality, ataxia TECHNIQUE: Multiplanar and multisequence MR images of the brain were obtained prior to and following administration of gadolinium contrast. Comparison: Comparison is made to CT head 07/16/2023, CT head 05/05/2022, MRI brain 11/29/2017 FINDINGS: No abnormal restricted diffusion is identified. The white matter is unremarkable. Ex vacuo ventriculomegaly and sulcal enlargement is noted compatible with diffuse volume loss. There is a left cerebellar mass measuring 34 x 28 x 26 mm with rim enhancement. It is T2 hyperintense and T1 hypointense and may contain a mural nodule in the superior anterior surface. There is mild mass effect with partial effacement of the fourth ventricle. There is no evidence of acute intraparenchymal hemorrhage. No extra axial fluid collections are seen. The corpus callosum, pituitary gland, and cerebellar tonsils appear grossly unremarkable. Flow voids of the major intracranial arterial vessels are identified. The imaged portions of the paranasal sinuses, mastoid air cells, and orbits are unremarkable. IMPRESSION: Enhancing multiloculated cystic type lesion with minimal surrounding vasogenic edema. 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 This is similar to appearance on prior CT however is new from MRI of [address] head of 2021. ACT 112: Positive. There are findings on this exam that require communication between the performing entity and the patient following Patient Test Result Information Act ([place] Act 112) guidelines. Electronically signed by: Wai Giang M.D. 07/17/2023 10:[address] 07/17/23 07:[address] WITH CONTRAST CT DOSE: 468.48 mGy.cm HISTORY: Collapse of the right lower lobe RLL collapse, possible mass TECHNIQUE: Multiaxial CT images of the chest were performed following the IV administration of 94 cc of Optiray. A dose lowering technique was utilized adhering to the principles of ALARA. COMPARISON: Chest radiograph 07/16/2023, thoracic spine MRI 11/30/2017, CT chest 05/10/2012 FINDINGS: Unremarkable thyroid. Borderline enlarged subcarinal and right hilar lymph nodes measure up to 10 mm. Heart is normal in size without pericardial effusion. Extensive coronary artery calcifications. Atherosclerosis of the thoracic aorta. Ectasia of the ascending portion measures up to 3.9 cm. Patency of the imaged great vessels. No pulmonary emboli identified. Tracheobronchial secretions are noted. There is abrupt cut off/opacification of the right lower lobe bronchus with complete collapse of the right lower lobe demonstrating heterogeneous attenuation. Subcentimeter calcifications are noted adjacent to the right lower lobe bronchus. Moderate pulmonary emphysema is biapical pleural-parenchymal scarring. Bronchial wall thickening with multifocal mucus plugging. Mild subpleural nodular densities of the right lung apex are similar prior likely represents scarring. No acute upper abdominal abnormality. Contrast noted within the renal collecting systems. There is mid to distal esophageal wall thickening suggestive of esophagitis with small hiatal hernia. L1 compression deformity with 5 mm retropulsion is new from 2018 and likely chronic. Degenerative changes of the shoulders and spine. IMPRESSION: 1. There is abrupt cut off/opacification of the right lower lobe bronchus with complete collapse of the right lower lobe demonstrating heterogeneous attenuation. Follow-up with pulmonology consultation and bronchoscopy is needed in order to exclude an obstructing endobronchial mass. 2. Borderline enlarged subcarinal and right hilar lymph nodes. 3. Emphysema with bronchitis and tracheobronchial secretions. 4. Biapical pleural parenchymal scarring redemonstrated. 5. Moderate L1 compression deformity with 5 mm retropulsion is new from 2018, likely chronic. ACT 112: Positive. There are findings on this exam that require communication between the performing entity and the patient following Patient Test Result Information Act ([place] Act 112) guidelines. Electronically signed by: Tommy Gallegos M.D. 07/17/2023 11:19 AM 07/18/23 Range/Units 05:24 WBC 5.66 (4.8-10.8) K/ul RBC 3.93 L (4.70-6.10) M/uL Hgb 13.1 L (14.0-18.0) g/dl Hct 37.2 L (42.0-52.0) % MCV 94.7 (80.0-100.0) fL MCH 33.3 (25.0-34.0) pg MCHC 35.2 (32.0-36.0) g/dL RDW Std Deviation 41.5 (36.4-46.3) fL RDW Coeff of Miguel 11.9 (11.5-14.5) % Plt Count 258 (130-400) K/uL MPV 8.7 L (9.4-12.4) fL Immature Gran % (Auto) 0.4 % Neut % (Auto) 54.5 % Lymph % (Auto) 19.8 % [place] % (Auto) 9.7 % Eos % (Auto) 14.5 % Baso % (Auto) 1.1 % Neut # (Auto) 3.09 (1.40-6.50) K/uL Lymph # (Auto) 1.12 L (1.20-3.40) K/uL [place] # (Auto) 0.55 (0.11-0.59) K/uL Eos # (Auto) 0.82 H (0.00-0.50) K/uL Baso # (Auto) 0.06 (0.00-0.20) K/uL Immature Gran # (Auto) 0.02 (0.01-0.20) K/uL Sodium 133 L (136-145) mmol/L Potassium 3.6 (3.5-5.1) mmol/L Chloride 101 (98-107) mmol/L Carbon Dioxide 25 (21-32) mmol/L Anion Gap 7 (3-11) BUN 12 (6-23) mg/dl Creatinine 0.42 L (0.6-1.4) mg/dl Est Cr Clr Drug Dosing 154.0 ml/min Est GFR ( Amer) 139.6 ml/min Est GFR (Non-Af Amer) 120.5 ml/min BUN/Creatinine Ratio 28.6 H (10-20) Glucose 83 (70-99(Fasting)) mg/dl Calcium 8.2 L (8.6-10.3) mg/dl Total Bilirubin 0.8 (0.2-1.0) mg/dl AST 18 (13-39) U/L ALT 8 (7-52) U/L Alkaline Phosphatase 61 (34-104) U/L Total Protein 5.6 L (6.0-8.3) gm/dl Albumin 3.3 L (3.4-5.0) gm/dl Globulin 2.3 L (2.5-4.0) gm/dl Albumin/Globulin Ratio 1.4 (0.9-2) Current Inpatient Medications Acetaminophen (Acetaminophen 325 Mg Tab) 650 mg PO Q4H PRN PRN Reason: pain/fever Stop: 08/16/23 00:32 Albuterol (Albuterol Hfa 8 Gm Inhaler) 2 puffs INH Q4R PRN PRN Reason: Shortness Of Breath Or Wheezin Stop: 08/16/23 21:41 Cyanocobalamin (Cyanocobalamin (B-12) 500 Mcg Tablet) [facility] [place]: 08/17/23 08:59 Last Admin: 07/18/23 09:15 Dose: 500 mcg Folic Acid (Folic Acid 1 Mg Tab) 1 [facility] [place]: 08/16/23 08:59 Last Admin: 07/18/23 09:14 Dose: 1 mg Lorazepam 1 mg/ Syringe 1 mls @ 2 mls/min IV ONE PRN; Protocol PRN Reason: EtoH Withdrawal AWSS 6-10 Lactated Ringer's (Lr) 1,000 mls @ 100 mls/hr IV .Q10H SARAH Stop: 08/16/23 00:59 Last Admin: 07/18/23 04:32 Dose: 100 mls/hr Ampicillin Sodium/Sulbactam Sodium 3,000 mg/ Sodium Chloride 100 mls @ 100 mls/hr IV Q6H SARAH Stop: 07/25/23 10:59 Last Admin: 07/18/23 12:57 Dose: 100 mls/hr Dexamethasone 4 mg/ Syringe 1 mls @ 1 mls/min IV Q8H SARAH Stop: 08/17/23 13:44 Lisinopril (Lisinopril 10 Mg Tab) 10 mg PO QAM SARAH Stop: 08/16/23 08:59 Last Admin: 07/18/23 09:14 Dose: 10 mg Miscellaneous (Remove Nicoderm Patch) 1 each N/A DAILY@0859 SARAH Stop: 08/17/23 08:58 Last Admin: 07/18/23 09:15 Dose: 1 each Nicotine (Nicotine 14 Mg/24 Hr Patch) 14 mg TD DAILY SARAH Stop: 08/16/23 21:59 Last Admin: 07/18/23 09:16 Dose: 14 mg Thiamine HCl (Thiamine Hcl 100 Mg Tab) 200 mg PO QAM SARAH Stop: 08/16/23 08:59 Last Admin: 07/18/23 09:14 Dose: 200 mg Hospital Course (1) Ataxia: 68 y/o presented with falls, unsteady gait, ataxia ED evaluation notable for abnormal CXR with RLL opacity and abnormal head CT. Obtained CT chest showed RLL collapse abrupt cutoff of RLL bronchus concerning for obstruction. Brain MRI with left cerebellar mass concerning for primary cerebellar tumor less likely metastasis. Underwent bronchoscopy and EBUS this morning by Dr. Antonio, exophytic mass in RLL bronchus biopsied preliminary path = non-small cell lung cancer, advised antibiotics for postobstructive pneumonia, amp-sulbactam started. Discussed brain MRI findings with neurologist could be metastasis but appearance is atypical for a met and has cystic appearance, also quite large and in posterior fossa with increased risk of hydrocephalus/mass effect, advised neurosurgical evaluation. Consulted with neurosurgeon Dr. Wolfe at [facility] who accepted Mr. Johnson in transfer, immediate concern is some hydrocephalus affecting 4th ventricle, agreed starting dexamethasone 4 mg IV q8h at this time. Of note has significant alcohol history but has had no signs or symptoms of alcohol withdrawal to date. I discussed the biopsy findings and plan of care with Mr. Johnson and his Haile, they are aware of the preliminary pathology result and the brain mass. Future evaluation will need to be coordinated with medical oncology consultation and further staging. -Patient with long history of gait imbalance for which he uses a walker for ambulation at baseline -C-spine CT and head CT without any fractures -Abnormal head CT on admission with L cerebellar lesion potentially old infarct -reviewed head CT from 04/2022 - only "punctate lacunar infarct" noted in L cerebellum -brain MRI obtained showed L cerebellar mass - primary brain lesion vs metastasis - cystic appearing lesion not typical for met - see above (2) Mass of cerebellum: See above (3) Non-small cell cancer of right lung: R medial lung base opacity possible RLL collapse on CXR, R mediastinal prominence -chest CT obtained - RLL collapsed, suggestive of bronchial obstruction. Reviewed CT images. Also has SC LN on exam. -with finding of cerebellar brain mass, smoking history, weight loss the big picture was very concerning for metastatic cancer -consulted pulmonary - bronchoscopy with EBUS and biopsy of exophytic mass in a right lower lobe bronchus done this morning 07/17 - preliminary path from mass NSCLC -follow up final pathology, lymph node biopsies from bronch -medical oncology consultation is needed as well as further staging, likely outpatient PET-CT - has not yet been arranged at this time because of transfer (4) Postobstructive pneumonia: Amp-sulbactam started 07/17 based on bronchoscopy findings and recommendation by director pediatric - advised 14d course of amp-sulbactam / augmentin No dyspnea or hypoxia (5) Alcohol use disorder: -family reports excessive alcohol consumption -experiencing mood symptoms at home, as per his (depressed, quiet) -No known history of any alcohol withdrawal symptoms -Alcohol withdrawal protocol ordered -Thiamine 200 mg daily and folate daily ordered -Folate level normal and B12 level low normal - oral supplement ordered -had no signs or symptoms of alcohol withdrawal this admission (6) Idiopathic polyneuropathy: longstanding LLE symptoms which he states are improved over time, wonder if some of this symptomatology is related to brain mass (7) Hypertension: lisinopril 10 mg daily Plan B12 309 - started oral supplement Folate normal Thiamine po supplement Mild hyponatremia Na improved from 132 to 133 with IV fluids Cerebrovascular disease - reviewed previous imaging - had CTA head/neck 04/2022 noted to have 80% focal stenosis of distal L common carotid and 40% prox LICA -cardiac calcifications on CT -is on lisinopril and atorvastatin Severe protein calorie malnutrition. Anorexia and 20 pound weight loss this year. Cachectic appearing with significant extremity muscle wasting, sarcopenia -consult nutrition Skin lesions on head / posterior neck / shoulders - these have been present one year, no active lesions for good examination currently all are picked and scabbed, reports these are itchy and also sore, saw [employer] department manager in past, wonder if skin lesions could be extrapulmonary manifestation of the NSCLC Diffuse ecchymoses - coags - reviewed, normal, platelets normal Total Time Total Time Spent Total Time Spent (In Minutes): I spent 75 minutes coordinating care for discharge including reviewing chart notes, labs, vitals, discussion with director pediatric, arranging hospital transfer and consulting with neurosurgeon, examining the patient, counseling the patient and his Haile, orders, documentation. Discharge Plan Discharge Items Reason For Visit: FALL Condition on Discharge: Good Follow-up/Referrals: Mgaan Garcia MD [Primary Care Provider] - Medications and DC Order Prescriptions: No Action atorvastatin 40 mg tablet 40 mg PO QAM naltrexone 50 mg tablet 50 mg PO QAM thiamine HCl (vitamin B1) 100 mg tablet 100 mg PO DAILY mupirocin 2 % ointment 1 applic TOPICAL .2-3XS DAY PRN (Reason: flare up) clobetasol 0.05 % solution 1 applic TOPICAL DAILY PRN (Reason: ..) loratadine 10 mg Tablet 10 mg PO DAILY multivitamin Tablet 1 tab PO DAILY lisinopril 10 mg tablet 10 mg PO DAILY sertraline 25 mg tablet 25 mg PO QAM albuterol sulfate 90 mcg/actuation HFA aerosol inhaler 2 puff INHALATION Q4 PRN (Reason: Shortness Of Breath Or Wheezing) Admission Data Admit Date/Time: 07/16/23 23:34 Attending Provider: Roxane Herrera Admit Provider: fAsaneh Childs Primary Care Provider: Magan Garcia Other Providers: Tonio Aparicio; Daniel Antonio Coding Level of Care Code 86849 INP/OBS DISCH >30 MIN Diagnoses Ataxia R27.0 Mass of cerebellum G93.89 Non-small cell cancer of right lung C34.91 Postobstructive pneumonia J18.9 Alcohol use disorder F19.90 Idiopathic polyneuropathy G60.9 Hypertension I10
[2023-07-18] MEDS: dexAMETHasone 4 MG in SYRINGE 0 ML IV SCH (14:31)
== END 2023-07-19 00:14 | disposition short-term general hospital (02) | DRG 40 ==
LOC: ED 18:35 → EDINP 23:34 → SUATTDRO 23:34 → 4W 07-17 00:33